=== PATIENT | female | born 1970 | race Caucasian/White ===

== ENCOUNTER 2016-12-25 06:24 | Day surgery (SDC) | payer OTHER ==
[2016-09-24 12:38] VITALS: BMI 32.8
--- NOTE | 2016-12-25 06:17 | HP ---
History & Physical Update - History History: No Change - Physical Physical: No Change - Assessment Assessment: No Change - Plan Plan: No Change
[~2016-12-25 06:24] MED LIST: BUPIVACAINE HCL/PF 0.75% 10 ML VIAL RB ONE; LIDOCAINE HCL/PF 2% SDV 5ML VIAL INF ONE; TETRACAINE 0.5% OPHTH SOLN 2 ML BOTTLE TP ONE; TOBRAMYCIN 0.3% OPHTH OINT 3.5 GM OS ONE
[2016-12-25] MEDS ORDERED: PHENYLEPHRINE 2.5% OPHTH SOLN 15 ML BOTTLE ONE (06:49)
[2016-12-25] MEDS ORDERED: CYCLOPENTOLATE HCL 1% OPHTH SOLN 2 ML BOTTLE ONE (06:49)
[2016-12-25] MEDS ORDERED: MOXIFLOXACIN HCL 0.5% OPHTHALMIC 3 ML BOTTLE ONE (06:49)
[2016-12-25] MEDS ORDERED: TROPICAMIDE 1% OPHTH SOLN 15 ML BOTTLE ONE (06:49)
[2016-12-25 06:56] VITALS: TEMP 98.2
[2016-12-25] MEDS: MOXIFLOXACIN HCL 0.5% OPHTHALMIC 3 ML BOTTLE OP SCH ×2 (07:10→07:15)
[2016-12-25] MEDS: PHENYLEPHRINE 2.5% OPHTH SOLN 15 ML BOTTLE OP SCH ×2 (07:10→07:15)
[2016-12-25] MEDS: TROPICAMIDE 1% OPHTH SOLN 15 ML BOTTLE OP SCH ×2 (07:10→07:15)
[2016-12-25] MEDS: CYCLOPENTOLATE HCL 1% OPHTH SOLN 2 ML BOTTLE OP SCH ×2 (07:10→07:15)
[2016-12-25] MEDS ORDERED: LIDOCAINE HCL/PF 2% SDV 5ML VIAL ONE ×2 (07:20→08:01)
[2016-12-25] MEDS ORDERED: BSS (NA/CA/MG/K) BALANCED SALT SOLUTION OPHTH SOLN 15 ML BOTTLE ONE (07:20)
[2016-12-25] MEDS ORDERED: BUPIVACAINE HCL/PF 0.75% 10 ML VIAL ONE (07:20)
[2016-12-25] MEDS ORDERED: EPINEPHrine/PF 1 MG/1 ML (1:1,000) AMPULE ONE (07:20)
[2016-12-25] MEDS ORDERED: TOBRAMYCIN/DEXAMETHASONE OPHTH. OINTMENT 1 TUBE ONE (07:27)
[2016-12-25] MEDS ORDERED: PROPOFOL 20 ML ONE (07:34)
[2016-12-25] MEDS ORDERED: MIDAZOLAM HCL 2 MG/2 ML SINGLE DOSE VIAL ONE (07:34)
[2016-12-25] MEDS ORDERED: TETRACAINE 0.5% OPHTH SOLN 2 ML BOTTLE TP ONE (07:57)
[2016-12-25] MEDS ORDERED: BUPIVACAINE HCL/PF 0.75% 10 ML VIAL RB ONE (08:03)
[2016-12-25] MEDS ORDERED: LIDOCAINE HCL/PF 2% SDV 5ML VIAL INF ONE (08:03)
[2016-12-25] MEDS ORDERED: CHONDROITIN SU A/HYALUR SOD 1 KIT IO ONE ×2 (08:13→08:28)
[2016-12-25] MEDS ORDERED: EPINEPHrine/PF 1 MG/1 ML (1:1,000) AMPULE SQ ONE (08:14)
[2016-12-25] MEDS ORDERED: LIDOCAINE HCL 1% PRESERVATIVE FREE - 30ML VIAL IO ONE (08:21)
[2016-12-25] MEDS ORDERED: TOBRAMYCIN 0.3% OPHTH OINT 3.5 GM OS ONE (08:34)
[2016-12-25 09:24] VITALS: BP 130/78; PULSE 80
--- NOTE | 2016-12-26 07:00 | OP ---
DATE OF OPERATION: 12/25/2016 SURGEON: Job Griffiths MD PREOPERATIVE DIAGNOSIS: Cataract, left eye. OPERATION: Phacoemulsification and intraocular lens implantation, left eye. POSTOPERATIVE DIAGNOSIS: Cataract, left eye. ANESTHESIA: Local with intravenous sedation. COMPLICATIONS: None. BLOOD LOSS: None. SPECIMEN: None. BRIEF HISTORY: The patient is a 46-year-old woman with a past medical history of diabetes who presented with decreased vision in the left eye down to 20/100 due to a trace nuclear sclerotic lens with diffuse posterior changes and some anterior cortical changes. After the risks, benefits, and alternatives to cataract surgery were discussed with the patient, she consented to surgery for the left eye. DESCRIPTION OF PROCEDURE: The patient was brought to the operating room and administered retrobulbar block after receiving intravenous sedation. She was then prepped and draped in the usual sterile fashion. An eyelid speculum was inserted in the left eye, a paracentesis was made, and the anterior chamber was inflated with nonpreserved lidocaine. This was followed by injection of Viscoat. A groove was made in the superotemporal clear cornea which was tunneled forward with a crescent blade. The anterior chamber was entered with a 2.75 keratome. The cystotome was used to make an incision at the center of the capsule, and a continuous curvilinear capsulorrhexis was created. The lens was hydrodissected until it was found to rotate freely within the capsular bag. Phacoemulsification was then used to remove the lens in its entirety. Irrigation and aspiration were used to remove residual cortical material. The anterior chamber and capsular bag were reinflated with Provisc, and a 21.5 diopter [id number] AcrySof intraocular lens was injected into the capsular bag using the [place] injector. The lens was dialed into place using the [place] hook. Irrigation and aspiration were used to remove residual viscoelastic. The wound was stromally hydrated until it was found to be watertight and the eye was in an appropriate pressure. The eyelid speculum was removed from the eye and TobraDex ointment and a patch and shield were placed over the left eye. The patient was transferred to the recovery room in stable condition and will follow up tomorrow. Margaret [id number] MTDD
== END 2016-12-25 09:57 | disposition home or self-care (01) ==
LOC: JASU-SURG 06:24
PROVIDERS: ATTEND Ophthalmology
PROC: 08RK3JZ Replacement of Left Lens with Synthetic Substitute, Percutaneous Approach (ICD-10-PCS; principal; 2016-12-25 09:00)
DX: H25.12 Age-related nuclear cataract, left eye (principal)

== ENCOUNTER 2018-02-28 14:01 | Emergency (ER) | payer OTHER ==
--- NOTE | 2018-02-28 14:08 | PDOC ---
Rapid Medical Evaluation Chief Complaint: Allergic Reaction Time Seen by Provider: 02/28/18 14:02 Medical Evaluation: Allergies Allergy/AdvReac Type Severity Reaction Status Date / Time aspirin Allergy Verified 02/28/18 14:04 02/28/18 14:06 The patient presents with a chief complaint of: Rash to arms, back and vaginal area. Pt. states that she has the rash for years, but it is worse in the last two weeks. Denies new medications, travel, eating new foods. Being followed by a aerospace technician. admits to itching. denies fevers, n/v/d. I have performed a brief in-person evaluation of this patient; Pertinent physical exam findings: ambulatory, in no respiratory distress. Red papules with excoriation and itching to arms b/l I have ordered the following: Nothing The patient will proceed to the ED for further evaluation. Discharge Disposition - Referrals Referrals: Zuleima Dunne MD [Primary Care Provider] - - Patient Instructions - Post Discharge Activity
[2018-02-28 14:09] VITALS: BP 151/92; PULSE 83; TEMP 98; BMI 33.5
[2018-02-28] MEDS ORDERED: DEXAMETHASONE SOD PHOSPHATE 10 MG/1 ML VIAL IM ONE (15:42)
[2018-02-28] MEDS ORDERED: diphenhydrAMINE HCL 25 MG CAPSULE (FP) PO ONE ×2 (15:43→15:48)
[2018-02-28] MEDS ORDERED: DEXAMETHASONE SOD PHOSPHATE 10 MG/1 ML VIAL ONE (15:48)
--- NOTE | 2018-02-28 15:51 | PDOC ---
History of Present Illness - General Chief Complaint: Allergic Reaction Stated Complaint: ALLERGIC REACTION Time Seen by Provider: 02/28/18 14:02 History Source: Patient Exam Limitations: No Limitations - History of Present Illness Initial Comments: 02/28/18 15:46 Patient came for evaluation of 2 weeks of rash that started on the right arm and is progressively worsened to extend to bilateral arms, back, abdomen and neck. States had onset of this. Itchy rash 2 years ago, was seen at screw [facility] and biopsies done but still has uncertain as to cause or diagnosis. Denies fever, denies any recent exposure or any infectious station at home. Denies any recent drug changes or travel. Denies any recent URI or other illness. Has taken no medication or treatments to help with itching or rashes. No one else at home is affected. 02/28/18 15:51 Timing/Duration: reports: changing over time Severity: reports: mild, moderate Associated Symptoms: reports: denies symptoms. denies: chest pain/soreness, cough, facial pain, fever/chills Past History - Travel Traveled outside of the country in the last 30 days: No Close contact w/someone who was outside of country & ill: No - Past Medical History Allergies/Adverse Reactions: Allergies Allergy/AdvReac Type Severity Reaction Status Date / Time aspirin Allergy Verified 02/28/18 14:09 Home Medications: Ambulatory Orders Insulin Detemir [Levemir Flextouch] 12 unit SQ TID 07/09/16 Sertraline HCl [Zoloft -] 25 mg PO DAILY 02/28/18 Anemia: No Asthma: No Cancer: No Cardiac Disorders: No CVA: No COPD: No CHF: No Dementia: No Diabetes: Yes GI Disorders: No Disorders: No HTN: No Hypercholesterolemia: No Liver Disease: No Psychiatric Problems: Yes (depressions) Seizures: No Thyroid Disease: No - Surgical History Cholecystectomy: Yes - Immunization History Immunization Up to Date: Yes - Suicide/Smoking/Psychosocial Hx Smoking History: Never smoked Have you smoked in the past 12 months: No Information on smoking cessation initiated: No Hx Alcohol Use: No Drug/Substance Use Hx: No Substance Use Type: None Hx Substance Use Treatment: No Review of Systems - Review of Systems Able to Perform ROS?: Yes Is the patient limited Mongolian proficient: Yes Constitutional: Yes: Symptoms Reported, See HPI. No: Fever, Malaise HEENTM: Yes: Symptoms Reported, See HPI. No: Nose Congestion, Mouth Pain, Difficulty Swallowing, Mouth Swelling Respiratory: Yes: See HPI. No: Symptoms reported, Cough, Wheezing Integumentary: Yes: Symptoms Reported, See HPI, Other (discrete pruritic nodular type lesions covering all of arms, back, chest wall up to neck. Nonvesicular, no weeping, no erythema, nontender. No patterns, grouping, or cellulitic appearance.) Neurological: Yes: Symptoms reported, See HPI All Other Systems: Reviewed and Negative *Physical Exam - Vital Signs Last Vital Signs Temp Pulse Resp BP Pulse Ox 98 F 83 16 151/92 100 02/28/18 14:05 02/28/18 14:05 02/28/18 14:05 02/28/18 14:05 02/28/18 14:05 - Physical Exam General Appearance: Yes: Nourished, Appropriately Dressed, Apparent Distress, Mild Distress HEENT: positive: NURY, Normal ENT Inspection, TMs Normal, Pharynx Normal Neck: positive: Supple. negative: Tender, Lymphadenopathy (R), Lymphadenopathy (L) Respiratory/Chest: positive: Lungs Clear Gastrointestinal/Abdominal: positive: Soft. negative: Normal Bowel Sounds Extremity: positive: Normal Capillary Refill, Normal Inspection, Normal Range of Motion Integumentary: positive: Normal Color, Warm, Other (discrete pruritic nodular type lesions covering all of arms, back, chest wall up to neck. Nonvesicular, no weeping, no erythema, nontender. 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 We will provide Decadron for itching and inflammatory purpose and recommend antihistamines. And follow-up with screw driver operator for possible biopsy *DC/Admit/Observation/Transfer Diagnosis at time of Disposition: Dermatitis - Discharge Dispostion Disposition: HOME Condition at time of disposition: Stable Admit: No - Referrals Referrals: Zuleima Dunne MD [Primary Care Provider] - - Patient Instructions Printed Discharge Instructions: DI for Contact Dermatitis Additional Instructions: Rest, keep cool and dry- avoid strenuous activity or hot /humid environments Less hot showers, no abrasive soaps May use heavy creams like Eucerin or Cetaphil to keep skin moist May apply Aveeno, calamine lotion, [id number] hydrocortisone creams as needed for symptoms May use Benadryl at night for antihistamine, Zyrtec/ Su or Claritin for daytime antihistamine use to help with itching May use [id number] hydrocortisone cream on all areas except face Try to identify cause for rash and avoid exposures Followup with PMD in one week if no resolution Make appointment with screw driver operator for evaluation when possible - Post Discharge Activity Forms/Work/School Notes: Back to Work
== END 2018-02-28 16:10 | disposition home or self-care (01) ==
LOC: JERFT 14:01
PROC: 3E0233Z Introduction of Anti-inflammatory into Muscle, Percutaneous Approach (ICD-10-PCS; principal; 2018-02-28)
DX: L30.9 Dermatitis, unspecified (principal); E11.9 Type 2 diabetes mellitus without complications; Z79.4 Long term (current) use of insulin; F32.9 Major depressive disorder, single episode, unspecified
CPT/HCPCS: 96372; 99281-25; J1100

== ENCOUNTER 2019-06-01 10:48 | Emergency (ER) | payer OTHER ==
[2019-06-01 10:58] VITALS: BP 145/86; PULSE 100; TEMP 98.1; BMI 34.0
[2019-06-01] MEDS ORDERED: DIPHTH,PERTUSS(ACELL),TET 0.5 ML DISP.SYRIN IM ONE ×2 (11:12→11:13)
[2019-06-01] MEDS ORDERED: ACETAMINOPHEN 325 MG TABLET (FP) ONE (11:12)
[2019-06-01] MEDS ORDERED: ACETAMINOPHEN 325 MG TABLET (FP) PO ONE (11:12)
--- NOTE | 2019-06-01 11:18 | PDOC ---
History of Present Illness - General Chief Complaint: Abscess Boil Stated Complaint: LOWER BACK PAIN/ FEVER Time Seen by Provider: 06/01/19 11:08 History Source: Patient (back abscess) - History of Present Illness Associated Symptoms: reports: swelling/mass/lumps. denies: fever Past History - Travel Traveled outside of the country in the last 30 days: No - Past Medical History Allergies/Adverse Reactions: Allergies Allergy/AdvReac Type Severity Reaction Status Date / Time aspirin Allergy Intermediate Hives Verified 06/01/19 10:58 baclofen AdvReac Mild dizziness Verified 06/01/19 10:58 duloxetine [From Cymbalta] AdvReac Mild Nausea Verified 06/01/19 10:58 Home Medications: Ambulatory Orders Insulin Sliding Scale [Novolog Vial Sliding Scale -] 0 units SQ BIDAC 08/13/18 Diclofenac Sodium [Voltaren] 2 gm TP TID PRN #3 tube 02/17/19 Ergocalciferol [Vitamin D2] 50,000 unit PO Q7D #4 capsule 02/17/19 Quetiapine Fumarate [Seroquel -] 50 mg PO HS 02/17/19 Sertraline HCl [Zoloft -] 25 mg PO DAILY 02/17/19 Insulin Degludec [Tresiba Flextouch U-100] 75 unit SQ HS 03/19/19 Cephalexin [Keflex] 500 mg PO BID 7 Days #14 capsule 06/01/19 Ibuprofen 600 mg PO ACDIN 7 Days #21 tablet 06/01/19 Anemia: Yes Asthma: No Cancer: No Cardiac Disorders: No 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) COPD: No CHF: No Dementia: No Diabetes: Yes (insulin dependent) GI Disorders: Yes (history pancreatitis 2008) Disorders: No HTN: No Hypercholesterolemia: No Liver Disease: No Psychiatric Problems: Yes (depressions) Seizures: No Thyroid Disease: No - Surgical History Cholecystectomy: Yes (2008) Orthopedic Surgery: Yes (right carpal release 09/2017; left carpal release 2016) - Immunization History Immunization Up to Date: Yes - Suicide/Smoking/Psychosocial Hx Smoking History: Never smoked Have you smoked in the past 12 months: No Hx Alcohol Use: Yes Drug/Substance Use Hx: No Substance Use Type: None Hx Substance Use Treatment: No Review of Systems - Review of Systems Constitutional: No: Chills, Fever Integumentary: Yes: Erythema, Lumps. No: Pruritus *Physical Exam - Vital Signs Last Vital Signs Temp Pulse Resp BP Pulse Ox 98.1 F 100 H 16 145/86 98 06/01/19 10:56 06/01/19 10:56 06/01/19 10:56 06/01/19 10:56 06/01/19 10:56 - Physical Exam General Appearance: Yes: Nourished Respiratory/Chest: positive: Lungs Clear, Normal Breath Sounds Cardiovascular: positive: Regular Rhythm, Regular Rate, S1, S2 Integumentary: positive: Erythema, Rash, Swelling (quarter sized erythematous indurated area with no fluctance noted in mid back). 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 NML intact, Fully Oriented, Alert, Normal Mood/ Affect, Normal Response, Motor Strength 5/5 Medical Decision Making - Medical Decision Making 06/01/19 11:13 mid back abscess X 3 days unsure of last tetanus exam consistent with 2cm indurated area with no fluctance, + erythema warm compresses advised abx 06/01/19 12:28 *DC/Admit/Observation/Transfer Diagnosis at time of Disposition: Abscess, Abscess or cellulitis of back - Discharge Dispostion Disposition: HOME Condition at time of disposition: Stable - Prescriptions Prescriptions: Cephalexin [Keflex] 500 mg PO BID 7 Days #14 capsule Ibuprofen 600 mg PO ACDIN 7 Days #21 tablet - Referrals Referrals: Zuleima Dunne MD [Primary Care Provider] - - Patient Instructions Printed Discharge Instructions: DI for Skin Abscess Additional Instructions: Please apply warm compress to area at least three times a day take antibiotics as prescribed return to the ER if worsening swelling occurs - Post Discharge Activity
== END 2019-06-01 11:20 | disposition home or self-care (01) ==
LOC: JERFT 10:48
PROC: 3E0234Z Introduction of Serum, Toxoid and Vaccine into Muscle, Percutaneous Approach (ICD-10-PCS; principal; 2019-06-01)
DX: L03.312 Cellulitis of back [any part except buttock and flank] (principal); E11.9 Type 2 diabetes mellitus without complications; Z79.4 Long term (current) use of insulin; F32.9 Major depressive disorder, single episode, unspecified; I69.834 Monoplegia of upper limb following other cerebrovascular disease affecting left non-dominant side
CPT/HCPCS: 90471; 90715; 99281-25

== ENCOUNTER 2019-06-02 16:52 | Inpatient (IN) | payer OTHER ==
--- NOTE | 2019-06-02 17:09 | PDOC ---
Rapid Medical Evaluation Medical Evaluation: 06/02/19 16:58 The patient is a 48 y/o F with PMH of HLD, DM, who presents to the ED with chest tightness since this morning. She also reports associated palpitations, fever, L arm pain. The patient states that she was started on an antibiotic yesterday for a cyst on her back. Exam: Temp 100.0F, lungs CTAB, cellulitic area with pustules to the mid back Orders: labs, ekg, cxr, cardiac monitoring Pt to proceed to the ER for further evaluation This is a double chart also has a [id number] Discharge Disposition - Diagnosis Chest pain - Referrals - Patient Instructions - Post Discharge Activity
--- NOTE | 2019-06-02 17:42 | PDOC ---
History of Present Illness <Alanna Ernandez - Last Filed: 06/02/19 20:25> - History of Present Illness Initial Comments: 06/02/19 18:19 48 yo F pmh HLD, IDDM, and previous VTE p/w pain starting in the left arm that radiated to the left chest, pleuritic left chest pain, mid-left abdominal pain, and hematuria/dysuria since this AM. Pt was seen in [facility] ED yesterday (06/01/19) for back abscess, d/c w/ cephalexin. Pt woke up today feeling pain in her left arm that radiated up to left chest and crampy left-mid abdominal pain. Endorses mild SOB, b/l leg swelling, weakness, and chills/diaphoresis. Denies hemoptysis , lightheadedness, N/V/D. Pt flew from [place] on 05/29/19. PMH: HLD, DM, Blood clot ([facility] 2008), pancreatitis ([facility] 2008) Meds: insulin Allergy: duloxetine, aspirin Surg: cholecystectomy SH: denies etoh 06/02/19 18:26 06/02/19 21:00 <Scotty Orlando - Last Filed: 06/03/19 00:24> - General Chief Complaint: Palpitations Stated Complaint: CP/PALPITATIONS/LT.ARM PAIN Time Seen by Provider: 06/02/19 16:58 Past History <Alanna Ernandez - Last Filed: 06/02/19 20:25> - Past Medical History COPD: No - Immunization History Immunization Up to Date: No - Suicide/Smoking/Psychosocial Hx Smoking History: Never smoked Have you smoked in the past 12 months: No Information on smoking cessation initiated: No Hx Alcohol Use: No Drug/Substance Use Hx: No <Scotty Orlando - Last Filed: 06/03/19 00:24> - Past Medical History Allergies/Adverse Reactions: Allergies Allergy/AdvReac Type Severity Reaction Status Date / Time aspirin Allergy Verified 06/02/19 17:09 duloxetine [From Cymbalta] Allergy Verified 06/02/19 17:09 Home Medications: Ambulatory Orders Cephalexin [Keflex] 0 mg PO DAILY 06/02/19 Review of Systems - Review of Systems Constitutional: Yes: Chills, Diaphoresis, Fever, Weakness Respiratory: Yes: Cough (endorses slight cough ), Shortness of Breath. No: Wheezing, Hemoptysis, Other (denies rhinorrhea) Cardiac (ROS): Yes: Chest Pain, Edema (endorses b/l LE edema ). No: Lightheadedness ABD/GI: Yes: Abdominal cramping. No: Diarrhea, Nausea, Vomiting : Yes: Dysuria, Hematuria Musculoskeletal: Yes: Other (+ myalgias) Integumentary: No: Symptoms Reported, See HPI, Bruising, Change in Color, Change in Hair/Nails, Dryness, Erythema, Flushing, Lesions, Lumps, Pallor, Pruritus, Rash, Sweating, Other Neurological: No: Symptoms reported, See HPI, Headache, Numbness, Paresthesia, Pre-Existing Deficit, Seizure, Tingling, Tremors, Weakness, Unsteady Gait, Ataxia, Dizziness, Other Psychiatric: No: Anxiety, Depression, Frequent Crying, Stressors, Sleep Pattern Change, Emotional Problems, Mood Swings, Change in Appetite, Other Endocrine: No: Symptoms Reported, See HPI, Excessive Sweating, Flushing, Intolerance to Cold, Intolerance to Heat, Increased Hunger, Increased Thirst, Increased Urine, Unexplained Weight Gain, Unexplained Weight Loss, Change in Weight, Other Hematologic/Lymphatic: No: Symptoms Reported, See HPI, Anemia, Blood Clots, Easy Bleeding, Easy Bruising, Bleeding Diathesis, Lymph Node Abnormalities, Swollen Glands, Other <Scotty Orlando - Last Filed: 06/03/19 00:24> *Physical Exam - Vital Signs Last Vital Signs Temp Pulse Resp BP Pulse Ox 101.3 F H 101 H 16 157/90 96 06/02/19 17:55 06/02/19 17:55 06/02/19 17:00 06/02/19 17:00 06/02/19 17:00 <Alanna Ernandez - Last Filed: 06/02/19 20:25> - Vital Signs Last Vital Signs Temp Pulse Resp BP Pulse Ox 100.0 F H 113 H 16 157/90 96 06/02/19 17:00 06/02/19 17:00 06/02/19 17:00 06/02/19 17:00 06/02/19 17:00 - Physical Exam Comments: 06/02/19 18:27 VS: tachycardic with temp 100F Gen: NC/AT, mild distress HEENT: Moist mucus membranes CV: tachycardic, no m/r/g Lungs: CTAB, no wheezes, rales, rhonchi Abd: soft with TTP of the mid-left quadrant. + bowel sounds Back: 8 x 6 cm purulent erythematous rash, warm to touch. Extremities: Bilateral TTP of b/l calves. 06/02/19 20:01 <Scotty Orlando - Last Filed: 06/03/19 00:24> ED Treatment Course - LABORATORY CBC & Chemistry Diagram: 06/02/19 18:37 06/02/19 18:37 - ADDITIONAL ORDERS Additional order review: Laboratory Results 06/02/19 06/02/19 06/02/19 18:37 18:37 18:37 PT with INR 12.00 INR 1.02 PTT (Actin FS) 33.8 VBG pH 7.42 H POC VBG pCO2 33.2 L POC VBG pO2 46.8 H VBG HCO3 21.3 L VBG O2 Sat (Manjit) 81.9 H VBG Base Excess -1.9 Sodium 131 L Potassium 4.3 Chloride 97 L Carbon Dioxide 23 Anion Gap 11 BUN 15.3 Creatinine 0.9 Est GFR (CKD-EPI)AfAm 88.25 Est GFR (CKD-EPI)NonAf 76.14 Random Glucose 372 H* Lactic Acid Calcium 9.2 Magnesium 2.1 Total Bilirubin 0.5 AST 15 ALT 26 Alkaline Phosphatase 128 H Creatine Kinase 113 CK-MB (CK-2) 1.0 Troponin I < 0.02 B-Natriuretic Peptide 34.7 Total Protein 7.3 Albumin 3.2 L Lipase 116 Serum , Qual 06/02/19 06/02/19 18:30 18:07 PT with INR INR PTT (Actin FS) VBG pH POC VBG pCO2 POC VBG pO2 VBG HCO3 VBG O2 Sat (Manjit) VBG Base Excess Sodium Potassium Chloride Carbon Dioxide Anion Gap BUN Creatinine Est GFR (CKD-EPI)AfAm Est GFR (CKD-EPI)NonAf Random Glucose Lactic Acid 0.8 Calcium Magnesium Total Bilirubin AST ALT Alkaline Phosphatase Creatine Kinase CK-MB (CK-2) Troponin I B-Natriuretic Peptide Total Protein Albumin Lipase Serum , Qual Negative 06/02/19 18:37 RBC 4.62 MCV 84.1 MCHC 33.3 RDW 13.6 MPV 9.2 Neutrophils % 76.6 Lymphocytes % 11.5 Monocytes % 9.7 Eosinophils % 1.4 Basophils % 0.8 - Medications Given in the ED: ED Medications Discontinued Medications Generic Name Dose Route Start Last Admin Trade Name Norma PRN Reason Stop Dose Admin Sodium Chloride 2,531 mls @ 1,265.5 mls/hr 06/02/19 18:07 06/02/19 18:57 Normal Saline - 30 ml/kg infuse over 2 hr (2531 ml) 06/02/19 20:06 1,265.5 mls/hr IV Administration ONCE ONE <Alanna Ernandez - Last Filed: 06/02/19 20:25> - LABORATORY CBC & Chemistry Diagram: 06/02/19 18:37 06/02/19 18:37 <Scotty Orlando - Last Filed: 06/03/19 00:24> Medical Decision Making - Critical Care Time Total Critical Care Time (minutes): 30 Critical Care Statement: The care of this patient involved high complexity decision making to prevent further life threatening deterioration of the patient 's condition and/or to evaluate & treat vital organ system(s) failure or risk of failure. - Medical Decision Making 06/02/19 18:36 48 yo F presenting with dysuria, hematuria, colicky abdominal pain (left mid- quad), and pleuritic chest pain since this AM. Was seen in [facility] ED for purulent back abscess the previous day (06/01/19). PMH pancreatitis, previous VTE, IDDM, and HLD. Patient meets SIRS criteria for sepsis with source. Possible pancreatitis. Cannot rule out PE. Considering rhabdo. Sepsis - EKG: sinus tach - rectal temperature - sepsis order set - IV, monitor - BCx, UCx - elevated wbc to 12.9 - starting vanc/zosyn Pancreatitis - lipase - consider CT abdomen PE - 2 points on PERC with moderate risk on Wells - CTA Others - B-hcg - serial trops dispo: admit to med/surg <Scotty Orlando - Last Filed: 06/03/19 00:24> *DC/Admit/Observation/Transfer - Discharge Dispostion Decision to Admit order: Yes <Alanna Ernandez - Last Filed: 06/02/19 20:25> - Discharge Dispostion Decision to Admit order: Yes <Scotty Orlando - Last Filed: 06/03/19 00:24> Diagnosis at time of Disposition: Fever Qualifiers: Fever type: unspecified Qualified Code(s): R50.9 - Fever, unspecified Abscess of skin Qualifiers: Site of cutaneous abscess: other site Qualified Code(s): L02.818 - Cutaneous abscess of other sites - Discharge Dispostion Disposition: TRANSFER ACUTE CARE/OTHER HOSP Condition at time of disposition: Fair
[2019-06-02] MEDS ORDERED: SODIUM CHLORIDE IV ONE (18:07)
[2019-06-02 19:00] LABS: BASO % 0.8 % (0-2.0); EOS % 1.4 % (0-4.5); HEMATOCRIT 38.9 % (32.4-45.2); LYMPH % 11.5 % (8-40); MCHC 33.3 g/dl (32.0-36.0); MEAN CELL VOLUME 84.1 fl (80-96); MEAN PLT VOLUME 9.2 fl (7.5-11.1); MONO % 9.7 % (3.8-10.2); NEUT % 76.6 % (42.8-82.8); PLATELET COUNT 240 K/MM3 (134-434); RBC 4.62 M/mm3 (3.60-5.2); RDW 13.6 % (11.6-15.6); WHITE BLOOD COUNT 12.9 K/mm3 (4.0-10.0)
[2019-06-02 19:05] LABS: VENOUS PC02 33.2 mmHg (41-51); VENOUS PH 7.42 (7.31-7.41); VENOUS PO2 46.8 mmHg (30-40)
[2019-06-02 19:12] LABS: INR 1.02 (0.83-1.09)
[2019-06-02 19:15] LABS: ACTIVATED PTT 33.8 SECONDS (25.2-36.5)
[2019-06-02] MEDS ORDERED: VANCOMYCIN 1 GM in D5W (PRE-DOCKED) 1,000 MG/250 ML IVPB ONE (19:41)
[2019-06-02] MEDS ORDERED: PIPERACILLIN/TAZOB 3.375 GM 3.375 GM in DEXTROSE 5%-WATER - 50 ML IVPB ONE (19:41)
[2019-06-02 19:44] LABS: ALBUMIN 3.2 g/dl (3.4-5.0); ALK PHOS 128 U/L (45-117); ANION GAP 11 MMOL/L (8-16); BILIRUBIN,TOTAL 0.5 mg/dL (0.2-1); BLOOD UREA NITROGEN 15.3 mg/dL (7-18); CALCIUM 9.2 mg/dL (8.5-10.1); CHLORIDE 97 mmol/L (98-107); CO2 23 mmol/L (21-32); CREATININE 0.9 mg/dL (0.55-1.3); LIPASE 116 U/L (73-393); MAGNESIUM 2.1 mg/dL (1.8-2.4); N-TERMINAL BNP 34.7 pg/ml (5-125); POTASSIUM 4.3 mmol/L (3.5-5.1); SGOT/AST 15 U/L (15-37); SGPT/ALT 26 U/L (13-61); SODIUM 131 mmol/L (136-145); TOT PROT 7.3 g/dl (6.4-8.2)
[2019-06-02 19:46] LABS: GLUCOSE,RANDOM 372 mg/dL (74-106)
[2019-06-02] MEDS ORDERED: VANCOMYCIN 1 GRAM (PRE-DOCKED) 1,000 MG/250 ML BAG IVPB ONE (20:18)
[2019-06-02] MEDS ORDERED: PIPERACILLIN/TAZOB 3.375 GM 3.375 GM/50 ML BAG IVPB ONE (20:18)
[2019-06-02] MEDS ORDERED: SODIUM CHLORIDE 1,000 ML IV STA (20:47)
--- NOTE | 2019-06-02 21:46 | PN ---
Teaching Attending Note Name of Resident: Deisy Pierre ATTENDING PHYSICIAN STATEMENT I saw and evaluated the patient. I reviewed the resident's note and discussed the case with the resident. I agree with the resident's findings and plan as documented. SUBJECTIVE: Seen and examined; please refer to resident note for further historical information. Briefly, this is a 48 y/o female presenting to the ER with a CC of back pain and chest pain; the pack pain is 2/2 abscess 8c/6c erythematous with minimal drainage. Was seen yday for this and given keflex with no improvement. The CP is dull and atypical and associated with headache; no radiation/diaphoresis/etc. Was seen at [facility] for this 2 months ago and discharged after being seen on tele. No premature CV hx and no prior heart issues but is a largely uncontrolled diabetic (follows with endo). Will admit and place on tele and consult Dr. Pond. 10 sys ROS done and negative aside from HPI PMH, PSH, FH, SH reviewed Home Medications Medication Instructions Recorded Cephalexin [Keflex] 0 mg PO DAILY 06/02/19 She states she also takes insulin; calling pharmacy to confirm dose. OBJECTIVE: VS, labs, imaging reviewed NAD, AAO, resting comfortably in bed NC AT EOMI PERRLA RRR s1/2 no mgr Lungs CTAB, w/ sym exp NT ND +BS 6x8 abscess on the back with minimal surrounding cellulitic changes. EKG reviewed ASSESSMENT AND PLAN: Patient presents with sepsis 2/2 back abscess # sepsis 2/2 cellulitis with abscess # Obesity # Depression Broad spectrum abx, consider ID consult, surgical drainage. Isotonic fluid and followup on floor. Rest of details per resident note.
[2019-06-02 22:06] LABS: EPI CELLS 3.2 /HPF (0-5/HPF); HYALINE CASTS 6 /lpf (0-8); URINE APPEARANCE CLEAR; URINE BACTERIA 119.7 /hpf (NEGATIVE); URINE BILIRUBIN NEGATIVE (NEGATIVE); URINE COLOR YELLOW; URINE GLUCOSE (UA) 3+ (NEGATIVE); URINE KETONE 3+ (NEGATIVE); URINE LEUK ESTERASE 1+ (NEGATIVE); URINE NITRITE NEGATIVE (NEGATIVE); URINE PROTEIN NEGATIVE (NEGATIVE); URINE RBC 1 /hpf (0-4); URINE UROBILINOGEN 0.2 mg/dL (0.2-1.0); URINE WBC 33 /hpf (0-5)
[2019-06-02] MEDS ORDERED: INSULIN REGULAR HUMAN 100 UNITS/ML *VIAL IVPUSH ONE (22:11)
--- NOTE | 2019-06-02 22:30 | HP ---
<Deisy Pierre - Last Filed: 06/03/19 14:24> CHIEF COMPLAINT:Fever, skin abscess, PCP: Dr. Oconnor HISTORY OF PRESENT ILLNESS: Patient is a 48F with PMH significant for insulin dependent diabetes, opiate dependent backpain, who presents with fever, chest pain, and dysuria. Patient felt subjective fever yesterday and presented to the emergency department where she was given a course of cephalexin. Patient took a dose last night and in the AM today but was not feeling well and had new chest pains. Described feelings of a pinching in her chest, and pain radiating into her left arm which was similar to a pain she felt from a blood clot in 2008. Patient did not endorse anything that improved or worsened the pain. Patient describes an abscess on her back for the past 2 weeks, describes it as being very tender. Patient also described dysuria for the previous 1 week, and some hematuria in the AM. Endorses subjective fever, weakness, and some shortness of breath this AM when she was laying down in bed. Patient denies chills or night sweats, light- headedness, or irregular heart beat. In the ER EKG was done which showed sinus tachycardia, and a chest x-ray which did not show cardiopulmonary disease. Vancomycin 1000 mg and zoysn in 3.375 gm were given along with 10 units of insulin. Recent Travel: Traveled back from [place] on 05/29 PAST MEDICAL HISTORY: Insulin dependent diabetes mellitus, opiate dependent back pain, previous abscess, blood clot in arm (2008), pancreatitis, PAST SURGICAL HISTORY: Right and Left Carpal Release in 2016 Cataract surgery in 2016 Tubal Ligation 2009 Cholecystectomy in 2008 Social History: Smoking:Denies Alcohol:Denies Drugs: Denies Family History: Significant for Diabetes and Cardiac issues in grandparents. Mother: Father: Alive in [place]. Allergies aspirin Allergy (Verified 06/02/19 17:09) duloxetine [From Cymbalta] Allergy (Verified 06/02/19 17:09) HOME MEDICATIONS: Home Medications Medication Instructions Recorded Cephalexin [Keflex] 0 mg PO DAILY 06/02/19 REVIEW OF SYSTEMS GASTROINTESTINAL: No abdominal pain, abdominal distension, nausea, vomiting, diarrhea, constipation, melena, hematochezia SKIN: No rash, itching, pallor NEUROLOGIC: headache nightly, no loss of sensation. PHYSICAL EXAMINATION Vital Signs - 24 hr 06/02/19 06/02/19 17:00 17:55 Temperature 100.0 F H 101.3 F H Pulse Rate 113 H 101 H Respiratory 16 Rate Blood Pressure 157/90 O2 Sat by Pulse 96 Oximetry (%) GENERAL: Awake, alert, and fully oriented, and laying in bed in discomfort. HEAD: Normal with no signs of trauma. LUNGS: Breath sounds equal, clear to auscultation bilaterally. No wheezes, and no crackles. No accessory muscle use. HEART: Regular rate and rhythm, normal S1 and S2 without murmur, rub or gallop. ABDOMEN: Soft, nontender, not distended, normoactive bowel sounds, no guarding, no rebound, no masses. No hepatomegaly or splenomegaly. LOWER EXTREMITIES: 2+ pulses, warm, well-perfused. No calf tenderness. No peripheral edema. SKIN: 8x6 abscess midline on the lumbar back. Surrounding area is tender to touch. Laboratory Results - last 24 hr 06/02/19 06/02/19 06/02/19 18:07 18:30 18:37 WBC 12.9 H RBC 4.62 Hgb 13.0 Hct 38.9 MCV 84.1 MCH 28.0 MCHC 33.3 RDW 13.6 Plt Count 240 MPV 9.2 Absolute Neuts (auto) 9.9 H Neutrophils % 76.6 Lymphocytes % 11.5 Monocytes % 9.7 Eosinophils % 1.4 Basophils % 0.8 Nucleated RBC % 0 PT with INR INR PTT (Actin FS) VBG pH POC VBG pCO2 POC VBG pO2 VBG HCO3 VBG O2 Sat (Manjit) VBG Base Excess Sodium Potassium Chloride Carbon Dioxide Anion Gap BUN Creatinine Est GFR (CKD-EPI)AfAm Est GFR (CKD-EPI)NonAf Random Glucose Lactic Acid 0.8 Calcium Magnesium Total Bilirubin AST ALT Alkaline Phosphatase Creatine Kinase CK-MB (CK-2) Troponin I B-Natriuretic Peptide Total Protein Albumin Lipase Serum , Qual Negative Urine Color Urine Appearance Urine pH Ur Specific Notus Urine Protein Urine Glucose (UA) Urine Ketones Urine Blood Urine Nitrite Urine Bilirubin Urine Urobilinogen Ur Leukocyte Esterase Urine WBC (Auto) Urine RBC (Auto) Urine Casts (Auto) U Epithel Cells (Auto) Urine Bacteria (Auto) Blood Type Antibody Screen 07/02/19 07/02/19 07/02/19 18:37 18:37 18:37 WBC RBC Hgb Hct MCV MCH MCHC RDW Plt Count MPV Absolute Neuts (auto) Neutrophils % Lymphocytes % Monocytes % Eosinophils % Basophils % Nucleated RBC % PT with INR 12.00 INR 1.02 PTT (Actin FS) 33.8 VBG pH 7.42 H POC VBG pCO2 33.2 L POC VBG pO2 46.8 H VBG HCO3 21.3 L VBG O2 Sat (Manjit) 81.9 H VBG Base Excess -1.9 Sodium 131 L Potassium 4.3 Chloride 97 L Carbon Dioxide 23 Anion Gap 11 BUN 15.3 Creatinine 0.9 Est GFR (CKD-EPI)AfAm 88.25 Est GFR (CKD-EPI)NonAf 76.14 Random Glucose 372 H* Lactic Acid Calcium 9.2 Magnesium 2.1 Total Bilirubin 0.5 AST 15 ALT 26 Alkaline Phosphatase 128 H Creatine Kinase 113 CK-MB (CK-2) 1.0 Troponin I < 0.02 B-Natriuretic Peptide 34.7 Total Protein 7.3 Albumin 3.2 L Lipase 116 Serum , Qual Urine Color Urine Appearance Urine pH Ur Specific [place]us Urine Protein Urine Glucose (UA) Urine Ketones Urine Blood Urine Nitrite Urine Bilirubin Urine Urobilinogen Ur Leukocyte Esterase Urine WBC (Auto) Urine RBC (Auto) Urine Casts (Auto) U Epithel Cells (Auto) Urine Bacteria (Auto) Blood Type Antibody Screen 06/02/19 06/02/19 06/02/19 18:37 21:00 21:00 WBC RBC Hgb Hct MCV MCH MCHC RDW Plt Count MPV Absolute Neuts (auto) Neutrophils % Lymphocytes % Monocytes % Eosinophils % Basophils % Nucleated RBC % PT with INR INR PTT (Actin FS) VBG pH POC VBG pCO2 POC VBG pO2 VBG HCO3 VBG O2 Sat (Manjit) VBG Base Excess Sodium Potassium Chloride Carbon Dioxide Anion Gap BUN Creatinine Est GFR (CKD-EPI)AfAm Est GFR (CKD-EPI)NonAf Random Glucose Lactic Acid 0.6 Calcium Magnesium Total Bilirubin AST ALT Alkaline Phosphatase Creatine Kinase 101 CK-MB (CK-2) Troponin I B-Natriuretic Peptide Total Protein Albumin Lipase Serum , Qual Urine Color Urine Appearance Urine pH Ur Specific [place]us Urine Protein Urine Glucose (UA) Urine Ketones Urine Blood Urine Nitrite Urine Bilirubin Urine Urobilinogen Ur Leukocyte Esterase Urine WBC (Auto) Urine RBC (Auto) Urine Casts (Auto) U Epithel Cells (Auto) Urine Bacteria (Auto) Blood Type A POSITIVE Antibody Screen Negative 06/02/19 21:50 WBC RBC Hgb Hct MCV MCH MCHC RDW Plt Count MPV Absolute Neuts (auto) Neutrophils % Lymphocytes % Monocytes % Eosinophils % Basophils % Nucleated RBC % PT with INR INR PTT (Actin FS) VBG pH POC VBG pCO2 POC VBG pO2 VBG HCO3 VBG O2 Sat (Manjit) VBG Base Excess Sodium Potassium Chloride Carbon Dioxide Anion Gap BUN Creatinine Est GFR (CKD-EPI)AfAm Est GFR (CKD-EPI)NonAf Random Glucose Lactic Acid Calcium Magnesium Total Bilirubin AST ALT Alkaline Phosphatase Creatine Kinase CK-MB (CK-2) Troponin I B-Natriuretic Peptide Total Protein Albumin Lipase Serum , Qual Urine Color Yellow Urine Appearance Clear Urine pH 5.0 Ur Specific Notus 1.028 Urine Protein Negative Urine Glucose (UA) 3+ H Urine Ketones 3+ H Urine Blood Negative Urine Nitrite Negative Urine Bilirubin Negative Urine Urobilinogen 0.2 Ur Leukocyte Esterase 1+ H Urine WBC (Auto) 33 Urine RBC (Auto) 1 Urine Casts (Auto) 6 U Epithel Cells (Auto) 3.2 Urine Bacteria (Auto) 119.7 Blood Type Antibody Screen ASSESSMENT/PLAN: 48 year old female with PMH of opiate dependent back pain and insulin dependent diabetes who presents today with infection likely secondary to abscess. 1) Abscess Surgery consult for potential I&D- Dr. Pond NPO Clindamycin 600 mg IV Q8H in AM Follow CBC, CMP Blood culture LR @ 75 ml/hr 2) Chest Pain Trend Troponins EKG if chest pain persists 3)Insulin Diabetes Mellitus Sliding Scale Insulin 4) Possible UTI Urine Culture Dispo: Admitted to floors F: LR @75ml/hr E: No electrolyte imbalances to monitor N: NPO Visit type - Emergency Visit Emergency Visit: Yes ED Registration Date: 06/02/19 Care time: The patient presented to the Emergency Department on the above date and was hospitalized for further evaluation of their emergent condition. - New Patient This patient is new to me today: Yes Date on this admission: 06/02/19 - Critical Care Critical Care patient: No <Olaf Rousseau - Last Filed: 07/05/19 21:18> Patient seen and examined; agree with above. Independently verified all vital parts of history and physical and interpreted all labs, etc. Please see my documentation for further discussion. ATTENDING PHYSICIAN STATEMENT I saw and evaluated the patient. I reviewed the resident's note and discussed the case with the resident. I agree with the resident's findings and plan as documented. SUBJECTIVE: OBJECTIVE: ASSESSMENT AND PLAN:
[2019-06-02] MEDS: SODIUM CHLORIDE 1,000 ML IV SCH (22:45)
--- NOTE | 2019-06-02 22:58 | PDOC ---
Documentation entered by Tree Ervin SCRIBE, acting as scribe for Alanna Ernandez MD. Alanna Ernandez MD: This documentation has been prepared by the Arcadio wade Elijah, SCRIBE, under my direction and personally reviewed by me in its entirety. I confirm that the documentation accurately reflects all work, treatment, procedures, and medical decision making performed by me. Attending Attestation - Resident Resident Name: DarionScotty - ED Attending Attestation I have performed the following: I have examined & evaluated the patient, The case was reviewed & discussed with the resident, I agree w/resident's findings & plan - HPI HPI: 06/02/19 19:31 The patient is a 48 deb old female with a significant PMH of HLD, IDDM, and previous VTE who presents to the ED with pain in the left arm that radiates to the left chest, crampy mid-upper abdominal pain, and hematuria/dysuria beginning this morning. The patient also associates SOB, Leg Swelling in both legs, weakness and chill. Denies Nausea, vomiting, diarrhea. Allergies: Aspirin and Duloxetine PCP: Dr. Dunne - Physicial Exam PE: 06/02/19 20:11 GENERAL: Awake, alert, and fully oriented, in no acute distress HEAD: No signs of trauma EYES: PERRLA, EOMI, sclera anicteric, conjunctiva clear ENT: Auricles normal inspection, hearing grossly normal, nares patent, oropharynx clear without exudates. Moist mucosa NECK: Normal ROM, supple, no lymphadenopathy, JVD, or masses LUNGS: Breath sounds equal, clear to auscultation bilaterally. No wheezes, and no crackles HEART: +Tachycardic, normal S1 and S2, no murmurs, rubs or gallops ABDOMEN: +Protuberant but Soft, nontender, normoactive bowel sounds. No guarding, no rebound. No masses BACK: +Mid-Back Abscess area fluctuant erythematous 8x6cm EXTREMITIES: Normal range of motion, no edema. No clubbing or cyanosis. No cords, erythema, or tenderness NEUROLOGICAL: Cranial nerves II through XII grossly intact. Normal speech, normal gait SKIN: Warm, Dry, normal turgor, no rashes or lesions noted. - Medical Decision Making 06/02/19 20:34 71-year-old female was insulin-dependent diabetic presents with fever and skin abscess. She also said she had some atypical chest pain and she had an unremarkable EKG and negative troponin. Patient has received IV vancomycin and Zosyn and is being admitted to [facility]
[2019-06-02] MEDS ORDERED: INSULIN (NOVOLOG) ASPART 100 UNITS/ML 10ML VIAL ONE (23:21)
[2019-06-02] MEDS: INSULIN SLIDING SCALE (NOVOLOG) 1 VIAL SQ SCH (23:25)
[2019-06-02] MEDS ORDERED: HYDROmorphone HCl 2 MG/ML VIAL IVPB ONE (23:48)
[2019-06-03] MEDS ORDERED: HYDROmorphone HCl 2 MG/ML VIAL ONE (00:31)
[2019-06-03 03:09] VITALS: BMI 32.1
[2019-06-03] MEDS: SODIUM CHLORIDE 1,000 ML IV SCH (03:17)
[2019-06-03] MEDS ORDERED: KETOROLAC TROMETHAMINE 15 MG/ML VIAL IM ONE (03:23)
[2019-06-03] MEDS ORDERED: ACETAMINOPHEN 325 MG TABLET (FP) PO PRN (06:06)
[2019-06-03] MEDS ORDERED: LACTATED RINGERS SOLUTION 1,000 ML/1,000 ML INFUS.BAG IV SCH ×2 (06:15→13:06)
[2019-06-03] MEDS ORDERED: INSULIN (NOVOLOG) ASPART 100 UNITS/ML 10ML VIAL ONE ×3 (06:28→21:06)
[2019-06-03] MEDS: CLINDAMYCIN 600MG PREMIX IVPB 600 MG/50 ML BAG IVPB SCH ×3 (06:31→17:55)
[2019-06-03] MEDS: INSULIN SLIDING SCALE (NOVOLOG) 1 VIAL SQ SCH ×4 (06:39→21:08)
[2019-06-03 09:19] LABS: BASO % 0.5 % (0-2.0); HEMATOCRIT 34.2 % (32.4-45.2); HEMOGLOBIN 11.3 GM/dL (10.7-15.3); LYMPH % 14.2 % (8-40); MCH 27.8 pg (25.7-33.7); MCHC 33.1 g/dl (32.0-36.0); MEAN CELL VOLUME 84.1 fl (80-96); MEAN PLT VOLUME 8.7 fl (7.5-11.1); MONO % 9.6 % (3.8-10.2); NEUT % 72.7 % (42.8-82.8); PLATELET COUNT 213 K/MM3 (134-434); RBC 4.07 M/mm3 (3.60-5.2); RDW 13.3 % (11.6-15.6); WHITE BLOOD COUNT 11.2 K/mm3 (4.0-10.0)
--- NOTE | 2019-06-03 09:31 | PN ---
Physical Exam: SUBJECTIVE: Patient seen and examined after I&D in OR. Pt resting comfortably, had lunch. No new pain, no SOB. OBJECTIVE: Vital Signs Period Temp Pulse Resp BP Sys/Perez Pulse Ox Last 24 Hr 99.5 F-101.3 F 99-113 16-18 133-157/76-90 95-96 Vital Signs Temp 98.1 F 06/03/19 14:28 Pulse 87 06/03/19 14:28 Resp 18 06/03/19 14:28 BP 116/62 06/03/19 14:28 Pulse Ox 95 06/03/19 14:28 Intake & Output 06/02/19 06/03/19 06/03/19 23:59 11:59 23:59 Intake Total 0 875 Output Total 5 Balance 0 870 Weight 84.368 kg 79.549 kg Intake: IV 875 Oral 0 Output: Estimated Blood Loss 5 Other: Voiding Method Toilet Height 1.57 m 1.57 m Body Mass Index (BMI) 34.0 32.1 Weight Measurement Method Standing Scale Weight Measurement Method Est/Stated by Patient GENERAL: The patient is awake, alert, and fully oriented, in no acute distress. EYES: PERRL, extraocular movements intact ENT: moist mucous membranes. NECK: supple. LUNGS: Breath sounds equal, clear to auscultation bilaterally, no wheezes, no crackles HEART: Regular rate and rhythm, S1, S2 without murmur ABDOMEN: Soft, nontender, nondistended, normoactive bowel sounds, no guarding, no rebound EXTREMITIES: 2+ pulses, warm, well-perfused, no edema. Mild tenderness over toes (pt reports peripheral neuropathy), no calf tenderness NEUROLOGICAL: Cranial nerves II through XII grossly intact. Normal speech, gait not observed. PSYCH: Normal mood, normal affect. SKIN: Warm, dry, normal turgor, no rashes or lesions noted. Back with midline , midback surgical dressing clean dry, with mild tenderness around, no obvious redness, or swelling. CBC, BMP 06/03/19 08:50 06/03/19 08:50 Laboratory Results - last 24 hr 06/02/19 06/02/19 06/02/19 18:07 18:30 18:37 WBC 12.9 H RBC 4.62 Hgb 13.0 Hct 38.9 MCV 84.1 MCH 28.0 MCHC 33.3 RDW 13.6 Plt Count 240 MPV 9.2 Absolute Neuts (auto) 9.9 H Neutrophils % 76.6 Lymphocytes % 11.5 Monocytes % 9.7 Eosinophils % 1.4 Basophils % 0.8 Nucleated RBC % 0 ESR PT with INR INR PTT (Actin FS) VBG pH POC VBG pCO2 POC VBG pO2 VBG HCO3 VBG O2 Sat (Manjit) VBG Base Excess Sodium Potassium Chloride Carbon Dioxide Anion Gap BUN Creatinine Est GFR (CKD-EPI)AfAm Est GFR (CKD-EPI)NonAf POC Glucometer Random Glucose Lactic Acid 0.8 Calcium Magnesium Total Bilirubin AST ALT Alkaline Phosphatase Creatine Kinase CK-MB (CK-2) Troponin I C-Reactive Protein B-Natriuretic Peptide Total Protein Albumin Lipase Serum , Qual Negative Urine Color Urine Appearance Urine pH Ur Specific [place] Urine Protein Urine Glucose (UA) Urine Ketones Urine Blood Urine Nitrite Urine Bilirubin Urine Urobilinogen Ur Leukocyte Esterase Urine WBC (Auto) Urine RBC (Auto) Urine Casts (Auto) U Epithel Cells (Auto) Urine Bacteria (Auto) Blood Type Antibody Screen 06/02/19 06/02/19 06/02/19 18:37 18:37 18:37 WBC RBC Hgb Hct MCV MCH MCHC RDW Plt Count MPV Absolute Neuts (auto) Neutrophils % Lymphocytes % Monocytes % Eosinophils % Basophils % Nucleated RBC % ESR PT with INR 12.00 INR 1.02 PTT (Actin FS) 33.8 VBG pH 7.42 H POC VBG pCO2 33.2 L POC VBG pO2 46.8 H VBG HCO3 21.3 L VBG O2 Sat (Manjit) 81.9 H VBG Base Excess -1.9 Sodium 131 L Potassium 4.3 Chloride 97 L Carbon Dioxide 23 Anion Gap 11 BUN 15.3 Creatinine 0.9 Est GFR (CKD-EPI)AfAm 88.25 Est GFR (CKD-EPI)NonAf 76.14 POC Glucometer Random Glucose 372 H* Lactic Acid Calcium 9.2 Magnesium 2.1 Total Bilirubin 0.5 AST 15 ALT 26 Alkaline Phosphatase 128 H Creatine Kinase 113 CK-MB (CK-2) 1.0 Troponin I < 0.02 C-Reactive Protein B-Natriuretic Peptide 34.7 Total Protein 7.3 Albumin 3.2 L Lipase 116 Serum , Qual Urine Color Urine Appearance Urine pH Ur Specific [place] Urine Protein Urine Glucose (UA) Urine Ketones Urine Blood Urine Nitrite Urine Bilirubin Urine Urobilinogen Ur Leukocyte Esterase Urine WBC (Auto) Urine RBC (Auto) Urine Casts (Auto) U Epithel Cells (Auto) Urine Bacteria (Auto) Blood Type Antibody Screen 06/02/19 06/02/19 06/02/19 18:37 21:00 21:00 WBC RBC Hgb Hct MCV MCH MCHC RDW Plt Count MPV Absolute Neuts (auto) Neutrophils % Lymphocytes % Monocytes % Eosinophils % Basophils % Nucleated RBC % ESR PT with INR INR PTT (Actin FS) VBG pH POC VBG pCO2 POC VBG pO2 VBG HCO3 VBG O2 Sat (Manjit) VBG Base Excess Sodium Potassium Chloride Carbon Dioxide Anion Gap BUN Creatinine Est GFR (CKD-EPI)AfAm Est GFR (CKD-EPI)NonAf POC Glucometer Random Glucose Lactic Acid 0.6 Calcium Magnesium Total Bilirubin AST ALT Alkaline Phosphatase Creatine Kinase 101 CK-MB (CK-2) Troponin I < 0.02 C-Reactive Protein B-Natriuretic Peptide Total Protein Albumin Lipase Serum , Qual Urine Color Urine Appearance Urine pH Ur Specific [place] Urine Protein Urine Glucose (UA) Urine Ketones Urine Blood Urine Nitrite Urine Bilirubin Urine Urobilinogen Ur Leukocyte Esterase Urine WBC (Auto) Urine RBC (Auto) Urine Casts (Auto) U Epithel Cells (Auto) Urine Bacteria (Auto) Blood Type A POSITIVE Antibody Screen Negative 06/02/19 06/02/19 06/03/19 21:50 22:51 03:18 WBC RBC Hgb Hct MCV MCH MCHC RDW Plt Count MPV Absolute Neuts (auto) Neutrophils % Lymphocytes % Monocytes % Eosinophils % Basophils % Nucleated RBC % ESR PT with INR INR PTT (Actin FS) VBG pH POC VBG pCO2 POC VBG pO2 VBG HCO3 VBG O2 Sat (Manjit) VBG Base Excess Sodium Potassium Chloride Carbon Dioxide Anion Gap BUN Creatinine Est GFR (CKD-EPI)AfAm Est GFR (CKD-EPI)NonAf POC Glucometer 300 Random Glucose Lactic Acid Calcium Magnesium Total Bilirubin AST ALT Alkaline Phosphatase Creatine Kinase CK-MB (CK-2) Troponin I C-Reactive Protein 15.8 H B-Natriuretic Peptide Total Protein Albumin Lipase Serum , Qual Urine Color Yellow Urine Appearance Clear Urine pH 5.0 Ur Specific [place] 1.028 Urine Protein Negative Urine Glucose (UA) 3+ H Urine Ketones 3+ H Urine Blood Negative Urine Nitrite Negative Urine Bilirubin Negative Urine Urobilinogen 0.2 Ur Leukocyte Esterase 1+ H Urine WBC (Auto) 33 Urine RBC (Auto) 1 Urine Casts (Auto) 6 U Epithel Cells (Auto) 3.2 Urine Bacteria (Auto) 119.7 Blood Type Antibody Screen 06/03/19 06/03/19 06/03/19 03:37 03:40 06:38 WBC RBC Hgb Hct MCV MCH MCHC RDW Plt Count MPV Absolute Neuts (auto) Neutrophils % Lymphocytes % Monocytes % Eosinophils % Basophils % Nucleated RBC % ESR 63 H PT with INR INR PTT (Actin FS) VBG pH POC VBG pCO2 POC VBG pO2 VBG HCO3 VBG O2 Sat (Manjit) VBG Base Excess Sodium Potassium Chloride Carbon Dioxide Anion Gap BUN Creatinine Est GFR (CKD-EPI)AfAm Est GFR (CKD-EPI)NonAf POC Glucometer 259 290 Random Glucose Lactic Acid Calcium Magnesium Total Bilirubin AST ALT Alkaline Phosphatase Creatine Kinase CK-MB (CK-2) Troponin I C-Reactive Protein B-Natriuretic Peptide Total Protein Albumin Lipase Serum , Qual Urine Color Urine Appearance Urine pH Ur Specific [place] Urine Protein Urine Glucose (UA) Urine Ketones Urine Blood Urine Nitrite Urine Bilirubin Urine Urobilinogen Ur Leukocyte Esterase Urine WBC (Auto) Urine RBC (Auto) Urine Casts (Auto) U Epithel Cells (Auto) Urine Bacteria (Auto) Blood Type Antibody Screen 06/03/19 08:50 WBC 11.2 H RBC 4.07 Hgb 11.3 Hct 34.2 MCV 84.1 MCH 27.8 MCHC 33.1 RDW 13.3 Plt Count 213 MPV 8.7 Absolute Neuts (auto) 8.2 H Neutrophils % 72.7 Lymphocytes % 14.2 D Monocytes % 9.6 Eosinophils % 3.0 D Basophils % 0.5 Nucleated RBC % 0 ESR PT with INR INR PTT (Actin FS) VBG pH POC VBG pCO2 POC VBG pO2 VBG HCO3 VBG O2 Sat (Manjit) VBG Base Excess Sodium Potassium Chloride Carbon Dioxide Anion Gap BUN Creatinine Est GFR (CKD-EPI)AfAm Est GFR (CKD-EPI)NonAf POC Glucometer Random Glucose Lactic Acid Calcium Magnesium Total Bilirubin AST ALT Alkaline Phosphatase Creatine Kinase CK-MB (CK-2) Troponin I C-Reactive Protein B-Natriuretic Peptide Total Protein Albumin Lipase Serum , Qual Urine Color Urine Appearance Urine pH Ur Specific [place] Urine Protein Urine Glucose (UA) Urine Ketones Urine Blood Urine Nitrite Urine Bilirubin Urine Urobilinogen Ur Leukocyte Esterase Urine WBC (Auto) Urine RBC (Auto) Urine Casts (Auto) U Epithel Cells (Auto) Urine Bacteria (Auto) Blood Type Antibody Screen Active Medications Generic Name Dose Route Start Last Admin Trade Name Freq PRN Reason Stop Dose Admin Acetaminophen 650 mg 06/03/19 06:06 06/03/19 06:31 Tylenol - PO 650 mg Q6H PRN Administration Fever Or Pain Enoxaparin Sodium 40 mg 06/03/19 10:00 Lovenox - SQ DAILY YELENA Clindamycin Phosphate 600 mg in 50 mls @ 100 mls/hr 06/03/19 05:15 06/03/19 06:31 Cleocin 600 Mg Premix Ivpb - IVPB 100 mls/hr Q8H-IV YELENA Administration Protocol Lactated Ringer's 1,000 ml in 1,000 mls @ 75 mls/hr 06/03/19 06:15 06/03/19 06:32 Lactated Ringers Solution IV 75 mls/hr ASDIR YELENA Administration Insulin Aspart 1 vial 06/02/19 22:00 06/03/19 06:39 Novolog Vial Sliding Scale - SQ 6 unit ACHS YELENA Administration Protocol Ambulatory Orders Insulin Sliding Scale [Novolog Vial Sliding Scale -] See Protocol SQ BIDAC 08/13 Ergocalciferol [Vitamin D2] 50,000 unit PO Q7D #4 capsule 02/17/19 Quetiapine Fumarate [Seroquel -] 100 mg PO HS 02/17/19 Sertraline HCl [Zoloft -] 100 mg PO DAILY 02/17/19 Insulin Degludec [Tresiba Flextouch U-100] 75 unit SQ HS 03/19/19 Cephalexin [Keflex] 500 mg PO BID 7 Days #14 capsule 06/01/19 Ibuprofen 600 mg PO ACDIN 7 Days #21 tablet 06/01/19 Buspirone HCl [Buspar -] 10 mg PO BID 06/03/19 Current Medications Acetaminophen (Tylenol -) 650 mg PO Q6H PRN PRN Reason: Fever Or Pain Acetaminophen (Ofirmev Injection -) 1,000 mg IVPB Q6H PRN PRN Reason: PAIN OR FEVER Enoxaparin Sodium (Lovenox -) 40 mg SQ DAILY YELENA Clindamycin Phosphate (Cleocin 600 Mg Premix Ivpb -) 600 mg in 50 mls @ 100 mls /hr IVPB Q8H-IV YELENA; Protocol Lactated Ringer's (Lactated Ringers Solution) 1,000 ml in 1,000 mls @ 75 mls/ hr IV ASDIR YELENA Last Admin: 06/03/19 15:04 Dose: Not Given Lactated Ringer's (Lactated Ringers Solution) 1,000 mls @ 75 mls/hr IV ASDIR YELENA Last Admin: 06/03/19 15:02 Dose: 75 mls/hr Insulin Aspart (Novolog Vial Sliding Scale -) 1 vial SQ ACHS YELENA; Protocol Last Admin: 06/03/19 13:45 Dose: 1 vial Non-Formulary Medication (Diclofenac Sodium [Voltaren]) 2 gm TP TID PRN PRN Reason: PAIN Non-Formulary Medication (Insulin Degludec [Tresiba Flextouch U-100]) 75 unit SQ HS YELENA Ondansetron HCl (Zofran Injection) 4 mg IVPUSH Q6H PRN PRN Reason: NAUSEA AND/OR VOMITING Quetiapine Fumarate (Seroquel -) 50 mg PO HS YELENA Sertraline HCl (Zoloft -) 25 mg PO DAILY YELENA ASSESSMENT/PLAN: Pt is a 48 yo F with PMH of opiate dependent back pain and IIDDM who presenting with back pain with abscess. #Back abscess s/p I&D- Day 0 Surgical site- dressing intact, clean and dry midback Surgery consult - Dr. Pond DM diet Received cephalexin for one day prior Cont Clindamycin 600 mg IV Q8H cont to monitor CBC, CMP Blood culture, wcx, ucx pending LR @ 75 ml/hr #Chest Pain Pt reports left hand pain radiating from to chest Now resolved Troponins negative x2 #Insulin Diabetes Mellitus Sliding Scale Insulin On home triseba #Psych disorder On seroquel, zoloft, buspar #Possible UTI UA with high epithelial cells 298.2, calcium oxalate Pt reports hematuria and dysuria which his resolved since being on AB Urine Culture #FEN LR@75 Monitor lytes, replete as needed NPO Medsurg Visit type - Emergency Visit Emergency Visit: Yes ED Registration Date: 06/02/19 Care time: The patient presented to the Emergency Department on the above date and was hospitalized for further evaluation of their emergent condition. - New Patient This patient is new to me today: Yes Date on this admission: 06/03/19 - Critical Care Critical Care patient: No - Discharge Referral Referred to [facility] Med [facility] No
--- NOTE | 2019-06-03 09:39 | CONSULT ---
- Consultation REQUESTING PROVIDER: Gianni Pond CONSULT REQUEST: We have been asked to surgically evaluate this patient for Back Abscess. PCP: Chris Coyle MD HPI: Called to tonya 48yo female with PMHx as noted below. Presents to [facility] ED w / c/o fever, CP & dysuria which is being medically managed. Patient states she has an abscess on her back for the past two weeks. Denies n/v/c. Recent Travel: Traveled back from [place] on 05/29 PMHx: IDDM, Opiate Dependent 2/2 chronic back pain. Previous back abscess. UE blood clot 2008. Pancreatitis PSHx: Right and Left Carpal Release in 2016 Cataract surgery in 2015 Tubal Ligation 2009 Cholecystectomy in 2008 Home Meds: Keflex Allergies ASA Cymbalta ROS: All systems reviewed and considered negative except for whats contained in HPI. PE: GENERAL: a&o. nad HEAD: nc. at. EYES: PERRL, sclera anicteric, conjunctiva clear. NECK: Normal ROM, supple without lymphadenopathy, JVD, or masses. LUNGS: cta bilat HEART: rrr ABDOMEN: Soft, nt. nd. normoactive bs in all quadrants MUSCULOSKELETAL: neg cvat bilat UE: 2+ pulses, warm, well-perfused. No cyanosis. Cap refill <2 seconds. No peripheral edema. LE: 2+ pulses, warm, well-perfused. No calf tenderness. No peripheral edema. NEUROLOGICAL: Normal speech, gait not observed. PSYCH: Cooperative. Good eye contact. Appropriate mood and affect. SKIN: ~ 8 x 6 cm abscess midline on the thoracolumbar region. TTP. + erythema. Last Vital Signs Temp Pulse Resp BP Pulse Ox 100.4 F H 100 H 18 139/76 96 06/03/19 06:00 06/03/19 06:00 06/03/19 06:00 06/03/19 06:00 06/03/19 02:30 CBC 06/03/19 08:50 INR, PTT INR 1.02 (0.83-1.09) 06/02/19 18:37 Blood Type Blood Type A POSITIVE 06/02/19 18:37 Problem List - Problems (1) Abscess of skin Assessment/Plan: 48 yo female admitted with fever, mild leukocytosis, abscess located in lumbar region. Made NPO Going to OR today for I&D back abscess Medical optimization Code(s): L02.91 - CUTANEOUS ABSCESS, UNSPECIFIED Qualifiers: Site of cutaneous abscess: other site Qualified Code(s): L02.818 - Cutaneous abscess of other sites (2) Fever Code(s): R50.9 - FEVER, UNSPECIFIED Qualifiers: Fever type: unspecified Qualified Code(s): R50.9 - Fever, unspecified Visit type - Case Type Case Type: ED Admission - Emergency Emergency Visit: Yes ED Registration Date: 06/02/19 Care time: The patient presented to the Emergency Department on the above date and was hospitalized for further evaluation of their emergent condition. - New patient This patient is new to me today: Yes Date on this admission: 06/03/19
[2019-06-03 09:52] LABS: ALBUMIN 2.4 g/dl (3.4-5.0); ANION GAP 8 MMOL/L (8-16); BLOOD UREA NITROGEN 8.2 mg/dL (7-18); CHLORIDE 105 mmol/L (98-107); CO2 22 mmol/L (21-32); CREATININE 0.6 mg/dL (0.55-1.3); GLUCOSE,RANDOM 277 mg/dL (74-106); MAGNESIUM 1.8 mg/dL (1.8-2.4); PHOSPHOROUS 3.1 mg/dL (2.5-4.9); POTASSIUM 3.6 mmol/L (3.5-5.1); SGOT/AST 8 U/L (15-37); SGPT/ALT 20 U/L (13-61); SODIUM 135 mmol/L (136-145)
[2019-06-03 09:55] LABS: ALK PHOS 102 U/L (45-117); BILIRUBIN,TOTAL 0.5 mg/dL (0.2-1); TOT PROT 5.6 g/dl (6.4-8.2)
[2019-06-03] MEDS ORDERED: ENOXAPARIN NA (PORCINE) 40 MG/0.4 ML DISP.SYRIN SQ SCH (10:00)
[2019-06-03] MEDS ORDERED: ACETAMINOPHEN 1000 MG/100 ML VIAL (NON FORMULARY) IVPB PRN ×2 (10:09→13:06)
[2019-06-03] MEDS ORDERED: LIDOCAINE HCL 1%, 10 MG/ML (20ML VIAL) ONE (11:04)
[2019-06-03] MEDS ORDERED: PROPOFOL 20 ML ONE (11:26)
[2019-06-03] MEDS ORDERED: MIDAZOLAM HCL 2 MG/2 ML SINGLE DOSE VIAL ONE ×2 (11:26)
[2019-06-03] MEDS ORDERED: ROCURONIUM BROMIDE 50 MG/5 ML VIAL ONE ×2 (11:57)
[2019-06-03] MEDS ORDERED: fentaNYL CITRATE 250 MCG/5 ML VIAL ONE (12:05)
[2019-06-03] MEDS ORDERED: NEOSTIGMINE METHYLSULFATE 0.5 MG/1 ML - 10 ML MDV ONE (12:39)
[2019-06-03] MEDS ORDERED: GLYCOPYRROLATE 0.2 MG/1 ML VIAL ONE (12:40)
--- NOTE | 2019-06-03 12:59 | OP ---
Operative Note - Note: Operative Date: 06/03/19 Pre-Operative Diagnosis: Back abscess Operation: Incision and drainage of back abscess Surgeon: Gianni Pond Electrical Systems Drafter: Giovanny Fox Anesthesiologist/CROOK OPERATOR: Chaz Reaves Anesthesia: General Estimated Blood Loss (mls): 5 Operative Report Dictated: Yes
--- NOTE | 2019-06-03 13:00 | SURG ---
Surgery Mainframe Systems Programmer Note Mainframe Systems Programmer: Giovanny Fox PA-C Date of Service: 06/03/19 Diagnosis: back abscess Procedure: Incision and drainage back abscess I was present for the entirety of the operative procedure. For further detail, please refer to operative report. Visit type - Case Type Case Type: ED Admission - Emergency Emergency Visit: Yes ED Registration Date: 06/02/19 Care time: The patient presented to the Emergency Department on the above date and was hospitalized for further evaluation of their emergent condition. - New patient This patient is new to me today: No - Critical Care Critical Care patient: No
[2019-06-03] MEDS ORDERED: PATIENT'S OWN MEDICATION (NON-FORMULARY) (Diclofenac Sodium [Voltaren] 2 GM) TP PRN (13:06)
[2019-06-03] MEDS ORDERED: ONDANSETRON 4 MG/2 ML VIAL IVPUSH PRN (13:48)
[2019-06-03] MEDS: LACTATED RINGERS SOLUTION 1,000 ML IV SCH (15:02)
[2019-06-03] MEDS: ACETAMINOPHEN 325 MG TABLET (FP) PO PRN (18:28)
--- NOTE | 2019-06-03 18:59 | PN ---
Teaching Attending Note Name of Resident: Monique Welch ATTENDING PHYSICIAN STATEMENT I saw and evaluated the patient. I reviewed the resident's note and discussed the case with the resident. I agree with the resident's findings and plan as documented. SUBJECTIVE: Patient has no complaints. OBJECTIVE: Vital Signs Period Temp Pulse Resp BP Sys/Perez Pulse Ox Last 24 Hr 98.1 F-100.4 F 87-105 16-20 114-160/62-88 95-100 HEART: S1S2, RRR LUNGS: Clear ABDOMEN: Obese, soft, non-tender, non-distended, normal BS EXTREMITIES: No edema Laboratory Results - last 24 hr 06/02/19 06/02/19 06/02/19 08:50 18:07 18:30 WBC RBC Hgb Hct MCV MCH MCHC RDW Plt Count MPV Absolute Neuts (auto) Neutrophils % Lymphocytes % Monocytes % Eosinophils % Basophils % Nucleated RBC % ESR PT with INR INR PTT (Actin FS) VBG pH POC VBG pCO2 POC VBG pO2 VBG HCO3 VBG O2 Sat (Manjit) VBG Base Excess Sodium Potassium Chloride Carbon Dioxide Anion Gap BUN Creatinine Est GFR (CKD-EPI)AfAm Est GFR (CKD-EPI)NonAf POC Glucometer Random Glucose Lactic Acid 0.8 Calcium Phosphorus Magnesium Total Bilirubin AST ALT Alkaline Phosphatase Creatine Kinase CK-MB (CK-2) Troponin I C-Reactive Protein B-Natriuretic Peptide Total Protein Albumin Lipase Serum , Qual Negative Urine Color Urine Appearance Urine pH Ur Specific Valliant Urine Protein Urine Glucose (UA) Urine Ketones Urine Blood Urine Nitrite Urine Bilirubin Urine Urobilinogen Ur Leukocyte Esterase Urine WBC (Auto) Urine RBC (Auto) Urine Casts (Auto) U Epithel Cells (Auto) Urine Bacteria (Auto) Blood Type A POSITIVE Antibody Screen 06/02/19 06/02/19 06/02/19 18:37 18:37 18:37 WBC 12.9 H RBC 4.62 Hgb 13.0 Hct 38.9 MCV 84.1 MCH 28.0 MCHC 33.3 RDW 13.6 Plt Count 240 MPV 9.2 Absolute Neuts (auto) 9.9 H Neutrophils % 76.6 Lymphocytes % 11.5 Monocytes % 9.7 Eosinophils % 1.4 Basophils % 0.8 Nucleated RBC % 0 ESR PT with INR 12.00 INR 1.02 PTT (Actin FS) 33.8 VBG pH 7.42 H POC VBG pCO2 33.2 L POC VBG pO2 46.8 H VBG HCO3 21.3 L VBG O2 Sat (Manjit) 81.9 H VBG Base Excess -1.9 Sodium Potassium Chloride Carbon Dioxide Anion Gap BUN Creatinine Est GFR (CKD-EPI)AfAm Est GFR (CKD-EPI)NonAf POC Glucometer Random Glucose Lactic Acid Calcium Phosphorus Magnesium Total Bilirubin AST ALT Alkaline Phosphatase Creatine Kinase CK-MB (CK-2) Troponin I C-Reactive Protein B-Natriuretic Peptide Total Protein Albumin Lipase Serum , Qual Urine Color Urine Appearance Urine pH Ur Specific Vall[place] Urine Protein Urine Glucose (UA) Urine Ketones Urine Blood Urine Nitrite Urine Bilirubin Urine Urobilinogen Ur Leukocyte Esterase Urine WBC (Auto) Urine RBC (Auto) Urine Casts (Auto) U Epithel Cells (Auto) Urine Bacteria (Auto) Blood Type Antibody Screen 06/02/19 06/02/19 06/02/19 18:37 18:37 21:00 WBC RBC Hgb Hct MCV MCH MCHC RDW Plt Count MPV Absolute Neuts (auto) Neutrophils % Lymphocytes % Monocytes % Eosinophils % Basophils % Nucleated RBC % ESR PT with INR INR PTT (Actin FS) VBG pH POC VBG pCO2 POC VBG pO2 VBG HCO3 VBG O2 Sat (Manjit) VBG Base Excess Sodium 131 L Potassium 4.3 Chloride 97 L Carbon Dioxide 23 Anion Gap 11 BUN 15.3 Creatinine 0.9 Est GFR (CKD-EPI)AfAm 88.25 Est GFR (CKD-EPI)NonAf 76.14 POC Glucometer Random Glucose 372 H* Lactic Acid 0.6 Calcium 9.2 Phosphorus Magnesium 2.1 Total Bilirubin 0.5 AST 15 ALT 26 Alkaline Phosphatase 128 H Creatine Kinase 113 CK-MB (CK-2) 1.0 Troponin I < 0.02 C-Reactive Protein B-Natriuretic Peptide 34.7 Total Protein 7.3 Albumin 3.2 L Lipase 116 Serum , Qual Urine Color Urine Appearance Urine pH Ur Specific Vall[place] Urine Protein Urine Glucose (UA) Urine Ketones Urine Blood Urine Nitrite Urine Bilirubin Urine Urobilinogen Ur Leukocyte Esterase Urine WBC (Auto) Urine RBC (Auto) Urine Casts (Auto) U Epithel Cells (Auto) Urine Bacteria (Auto) Blood Type A POSITIVE Antibody Screen Negative 06/02/19 06/02/19 06/02/19 21:00 21:50 22:51 WBC RBC Hgb Hct MCV MCH MCHC RDW Plt Count MPV Absolute Neuts (auto) Neutrophils % Lymphocytes % Monocytes % Eosinophils % Basophils % Nucleated RBC % ESR PT with INR INR PTT (Actin FS) VBG pH POC VBG pCO2 POC VBG pO2 VBG HCO3 VBG O2 Sat (Manjit) VBG Base Excess Sodium Potassium Chloride Carbon Dioxide Anion Gap BUN Creatinine Est GFR (CKD-EPI)AfAm Est GFR (CKD-EPI)NonAf POC Glucometer 300 Random Glucose Lactic Acid Calcium Phosphorus Magnesium Total Bilirubin AST ALT Alkaline Phosphatase Creatine Kinase 101 CK-MB (CK-2) Troponin I < 0.02 C-Reactive Protein B-Natriuretic Peptide Total Protein Albumin Lipase Serum , Qual Urine Color Yellow Urine Appearance Clear Urine pH 5.0 Ur Specific Valliant 1.028 Urine Protein Negative Urine Glucose (UA) 3+ H Urine Ketones 3+ H Urine Blood Negative Urine Nitrite Negative Urine Bilirubin Negative Urine Urobilinogen 0.2 Ur Leukocyte Esterase 1+ H Urine WBC (Auto) 33 Urine RBC (Auto) 1 Urine Casts (Auto) 6 U Epithel Cells (Auto) 3.2 Urine Bacteria (Auto) 119.7 Blood Type Antibody Screen 06/03/19 06/03/19 06/03/19 03:18 03:37 03:40 WBC RBC Hgb Hct MCV MCH MCHC RDW Plt Count MPV Absolute Neuts (auto) Neutrophils % Lymphocytes % Monocytes % Eosinophils % Basophils % Nucleated RBC % ESR 63 H PT with INR INR PTT (Actin FS) VBG pH POC VBG pCO2 POC VBG pO2 VBG HCO3 VBG O2 Sat (Manjit) VBG Base Excess Sodium Potassium Chloride Carbon Dioxide Anion Gap BUN Creatinine Est GFR (CKD-EPI)AfAm Est GFR (CKD-EPI)NonAf POC Glucometer 259 Random Glucose Lactic Acid Calcium Phosphorus Magnesium Total Bilirubin AST ALT Alkaline Phosphatase Creatine Kinase CK-MB (CK-2) Troponin I C-Reactive Protein 15.8 H B-Natriuretic Peptide Total Protein Albumin Lipase Serum , Qual Urine Color Urine Appearance Urine pH Ur Specific Vall[place] Urine Protein Urine Glucose (UA) Urine Ketones Urine Blood Urine Nitrite Urine Bilirubin Urine Urobilinogen Ur Leukocyte Esterase Urine WBC (Auto) Urine RBC (Auto) Urine Casts (Auto) U Epithel Cells (Auto) Urine Bacteria (Auto) Blood Type Antibody Screen 06/03/19 06/03/19 06/03/19 06:38 08:50 08:50 WBC 11.2 H RBC 4.07 Hgb 11.3 Hct 34.2 MCV 84.1 MCH 27.8 MCHC 33.1 RDW 13.3 Plt Count 213 MPV 8.7 Absolute Neuts (auto) 8.2 H Neutrophils % 72.7 Lymphocytes % 14.2 D Monocytes % 9.6 Eosinophils % 3.0 D Basophils % 0.5 Nucleated RBC % 0 ESR PT with INR INR PTT (Actin FS) VBG pH POC VBG pCO2 POC VBG pO2 VBG HCO3 VBG O2 Sat (Manjit) VBG Base Excess Sodium 135 L Potassium 3.6 Chloride 105 Carbon Dioxide 22 Anion Gap 8 BUN 8.2 Creatinine 0.6 Est GFR (CKD-EPI)AfAm 125.80 Est GFR (CKD-EPI)NonAf 108.54 POC Glucometer 290 Random Glucose 277 H Lactic Acid Calcium 8.0 L Phosphorus 3.1 Magnesium 1.8 Total Bilirubin 0.5 AST 8 L ALT 20 Alkaline Phosphatase 102 Creatine Kinase CK-MB (CK-2) Troponin I < 0.02 C-Reactive Protein B-Natriuretic Peptide Total Protein 5.6 L Albumin 2.4 L Lipase Serum , Qual Urine Color Urine Appearance Urine pH Ur Specific Vall[place] Urine Protein Urine Glucose (UA) Urine Ketones Urine Blood Urine Nitrite Urine Bilirubin Urine Urobilinogen Ur Leukocyte Esterase Urine WBC (Auto) Urine RBC (Auto) Urine Casts (Auto) U Epithel Cells (Auto) Urine Bacteria (Auto) Blood Type Antibody Screen 06/03/19 06/03/19 13:20 16:56 WBC RBC Hgb Hct MCV MCH MCHC RDW Plt Count MPV Absolute Neuts (auto) Neutrophils % Lymphocytes % Monocytes % Eosinophils % Basophils % Nucleated RBC % ESR PT with INR INR PTT (Actin FS) VBG pH POC VBG pCO2 POC VBG pO2 VBG HCO3 VBG O2 Sat (Manjit) VBG Base Excess Sodium Potassium Chloride Carbon Dioxide Anion Gap BUN Creatinine Est GFR (CKD-EPI)AfAm Est GFR (CKD-EPI)NonAf POC Glucometer 279 383 Random Glucose Lactic Acid Calcium Phosphorus Magnesium Total Bilirubin AST ALT Alkaline Phosphatase Creatine Kinase CK-MB (CK-2) Troponin I C-Reactive Protein B-Natriuretic Peptide Total Protein Albumin Lipase Serum , Qual Urine Color Urine Appearance Urine pH Ur Specific Vall[place] Urine Protein Urine Glucose (UA) Urine Ketones Urine Blood Urine Nitrite Urine Bilirubin Urine Urobilinogen Ur Leukocyte Esterase Urine WBC (Auto) Urine RBC (Auto) Urine Casts (Auto) U Epithel Cells (Auto) Urine Bacteria (Auto) Blood Type Antibody Screen Current Medications Generic Name Dose Route Start Last Admin Trade Name Freq PRN Reason Stop Dose Admin Acetaminophen 650 mg 06/03/19 13:06 Tylenol - PO Q6H PRN Fever Or Pain Acetaminophen 1,000 mg 06/03/19 13:06 Ofirmev Injection - IVPB Q6H PRN PAIN OR FEVER Enoxaparin Sodium 40 mg 06/04/19 10:00 Lovenox - SQ DAILY YELENA Clindamycin Phosphate 600 mg in 50 mls @ 100 mls/hr 06/03/19 18:00 06/03/19 17:55 Cleocin 600 Mg Premix Ivpb - IVPB 100 mls/hr Q8H-IV YELENA Administration Protocol Lactated Ringer's 1,000 ml in 1,000 mls @ 75 mls/hr 06/03/19 13:06 06/03/19 15:04 Lactated Ringers Solution IV Not Given ASDIR YELENA Lactated Ringer's 1,000 mls @ 75 mls/hr 06/03/19 14:00 06/03/19 15:02 Lactated Ringers Solution IV 75 mls/hr ASDIR YELENA Administration Insulin Aspart 1 vial 06/03/19 16:30 06/03/19 13:45 Novolog Vial Sliding Scale - SQ 1 vial ACHS YELENA Administration Protocol Non-Formulary Medication 2 gm 06/03/19 13:06 Diclofenac Sodium [Voltaren] TP TID PRN PAIN Non-Formulary Medication 75 unit 06/03/19 22:00 Insulin Degludec [Tresiba Flextouch U-100] SQ HS YELENA Ondansetron HCl 4 mg 06/03/19 13:48 Zofran Injection IVPUSH Q6H PRN NAUSEA AND/OR VOMITING Quetiapine Fumarate 50 mg 06/03/19 22:00 Seroquel - PO HS YELENA Sertraline HCl 25 mg 06/04/19 10:00 Zoloft - PO DAILY YELENA ASSESSMENT AND PLAN: This is a 48 year old woman with a history of type 2 DM, diabetic neuropathy, hyperlipidemia, depression, chronic back pain with lumbar radiculopathy, abscess of lower back who presented to the ED with fever, chest pain, and back pain. 1. Sepsis secondary to back abscess, UTI - Fever, tachycardia, hematuria, dysuria improved; WBC improving - s/p I&D of back abscess 06/03 - Continue clindamycin - Was on Keflex 06/01-06/02 - Follow up blood, urine, wound cultures 2. Chest pain - Resolved - Troponin negative x3 - No definite PE on CTA 3. Type 2 DM with peripheral neuropathy - Continue Tresiba, Novolog sliding scale 4. Depression - Continue Seroquel, Zoloft 5. Hyperlipidemia 6. Chronic back pain with lumbar radiculopathy 7. Obesity with BMI 32.1
[2019-06-03] MEDS ORDERED: QUEtiapine FUMARATE 25 MG TABLET (FP) ONE (21:06)
[2019-06-03] MEDS ORDERED: QUEtiapine FUMARATE 50 MG TABLET PO SCH (22:00)
[2019-06-04] MEDS: CLINDAMYCIN 600MG PREMIX IVPB 600 MG/50 ML BAG IVPB SCH ×3 (01:54→17:33)
[2019-06-04] MEDS: LACTATED RINGERS SOLUTION 1,000 ML IV SCH (01:57)
[2019-06-04] MEDS: INSULIN SLIDING SCALE (NOVOLOG) 1 VIAL SQ SCH ×4 (06:34→21:06)
--- NOTE | 2019-06-04 06:59 | PN ---
Physical Exam: SUBJECTIVE: Patient seen and examined. No fever, no shortness of breath, no chest pain. Had dressing at site changed today. Taking PO. OBJECTIVE: Vital Signs Period Temp Pulse Resp BP Sys/Perez Pulse Ox Last 24 Hr 98.1 F-99.2 F 81-98 16-20 114-160/62-88 95-100 Vital Signs Temp 98.0 F 06/04/19 15:16 Pulse 79 06/04/19 15:16 Resp 18 06/04/19 15:16 BP 132/70 06/04/19 15:16 Pulse Ox 95 06/03/19 21:00 Intake & Output 06/03/19 06/04/19 06/04/19 23:59 11:59 23:59 Intake Total 5 450 700 Output Total 5 Balance 2069 450 700 Intake: IV 1775 450 600 Lactated Ringers Solution 900 450 600 1,000 ml @ 75 mls/hr IV ASDIR YELENA Rx#:[id number] IVPB 100 100 Oral 200 Output: Estimated Blood Loss 5 Other: Voiding Method Toilet Toilet # Unmeasured Voids Void 1 GENERAL: The patient is awake, alert, and fully oriented, in no acute distress. ENT: moist mucous membranes. LUNGS: Breath sounds equal, clear to auscultation bilaterally, no wheezes, no crackles HEART: Regular rate and rhythm, S1, S2 without murmur, rub or gallop. ABDOMEN: Soft, nontender, obese, normoactive bowel sounds, no guarding, EXTREMITIES: 2+ pulses, warm, well-perfused, no edema. NEUROLOGICAL: Cranial nerves II through XII grossly intact. Normal speech, gait not observed. PSYCH: Normal mood, normal affect. SKIN: Back with surgical dressing, clean and dry CBC, BMP 06/04/19 06:25 06/04/19 13:37 Laboratory Results - last 24 hr 06/02/19 06/03/19 06/03/19 08:50 08:50 08:50 WBC 11.2 H RBC 4.07 Hgb 11.3 Hct 34.2 MCV 84.1 MCH 27.8 MCHC 33.1 RDW 13.3 Plt Count 213 MPV 8.7 Absolute Neuts (auto) 8.2 H Neutrophils % 72.7 Lymphocytes % 14.2 D Monocytes % 9.6 Eosinophils % 3.0 D Basophils % 0.5 Nucleated RBC % 0 Sodium 135 L Potassium 3.6 Chloride 105 Carbon Dioxide 22 Anion Gap 8 BUN 8.2 Creatinine 0.6 Est GFR (CKD-EPI)AfAm 125.80 Est GFR (CKD-EPI)NonAf 108.54 POC Glucometer Random Glucose 277 H Calcium 8.0 L Phosphorus 3.1 Magnesium 1.8 Total Bilirubin 0.5 AST 8 L ALT 20 Alkaline Phosphatase 102 Troponin I < 0.02 Total Protein 5.6 L Albumin 2.4 L Blood Type A POSITIVE 06/03/19 06/03/19 06/03/19 13:20 16:56 21:02 WBC RBC Hgb Hct MCV MCH MCHC RDW Plt Count MPV Absolute Neuts (auto) Neutrophils % Lymphocytes % Monocytes % Eosinophils % Basophils % Nucleated RBC % Sodium Potassium Chloride Carbon Dioxide Anion Gap BUN Creatinine Est GFR (CKD-EPI)AfAm Est GFR (CKD-EPI)NonAf POC Glucometer 279 383 473 Random Glucose Calcium Phosphorus Magnesium Total Bilirubin AST ALT Alkaline Phosphatase Troponin I Total Protein Albumin Blood Type 06/04/19 06:14 WBC RBC Hgb Hct MCV MCH MCHC RDW Plt Count MPV Absolute Neuts (auto) Neutrophils % Lymphocytes % Monocytes % Eosinophils % Basophils % Nucleated RBC % Sodium Potassium Chloride Carbon Dioxide Anion Gap BUN Creatinine Est GFR (CKD-EPI)AfAm Est GFR (CKD-EPI)NonAf POC Glucometer 379 Random Glucose Calcium Phosphorus Magnesium Total Bilirubin AST ALT Alkaline Phosphatase Troponin I Total Protein Albumin Blood Type Active Medications Generic Name Dose Route Start Last Admin Trade Name Freq PRN Reason Stop Dose Admin Acetaminophen 650 mg 06/03/19 13:06 06/03/19 18:28 Tylenol - PO 650 mg Q6H PRN Administration Fever Or Pain Acetaminophen 1,000 mg 06/03/19 13:06 06/04/19 06:34 Ofirmev Injection - IVPB 1,000 mg Q6H PRN Administration PAIN OR FEVER Enoxaparin Sodium 40 mg 06/04/19 10:00 Lovenox - SQ DAILY YELENA Clindamycin Phosphate 600 mg in 50 mls @ 100 mls/hr 06/03/19 18:00 06/04/19 01:54 Cleocin 600 Mg Premix Ivpb - IVPB 100 mls/hr Q8H-IV YELENA Administration Protocol Lactated Ringer's 1,000 ml in 1,000 mls @ 75 mls/hr 06/03/19 13:06 06/03/19 15:04 Lactated Ringers Solution IV Not Given ASDIR YELENA Lactated Ringer's 1,000 mls @ 75 mls/hr 06/03/19 14:00 06/04/19 01:57 Lactated Ringers Solution IV 75 mls/hr ASDIR YELENA Administration Insulin Aspart 1 vial 06/03/19 16:30 06/04/19 06:34 Novolog Vial Sliding Scale - SQ 10 units ACHS YELENA Administration Protocol Non-Formulary Medication 2 gm 06/03/19 13:06 Diclofenac Sodium [Voltaren] TP TID PRN PAIN Non-Formulary Medication 75 unit 06/03/19 22:00 Insulin Degludec [Tresiba Flextouch U-100] SQ [facility] Ondansetron HCl 4 mg 06/03/19 13:48 Zofran Injection IVPUSH Q6H PRN NAUSEA AND/OR VOMITING Quetiapine Fumarate 50 mg 06/04/19 22:00 Seroquel - PO [facility] Sertraline HCl 25 mg 06/04/19 10:00 Zoloft - PO DAILY [facility] Ambulatory Orders Insulin Sliding Scale [Novolog Vial Sliding Scale -] See Protocol SQ BIDAC 08/13 Ergocalciferol [Vitamin D2] 50,000 unit PO Q7D #4 capsule 02/17/19 Quetiapine Fumarate [Seroquel -] 100 mg PO HS 02/17/19 Sertraline HCl [Zoloft -] 100 mg PO DAILY 02/17/19 Insulin Degludec [Tresiba Flextouch U-100] 75 unit SQ HS 03/19/19 Cephalexin [Keflex] 500 mg PO BID 7 Days #14 capsule 06/01/19 Ibuprofen 600 mg PO ACDIN 7 Days #21 tablet 06/01/19 Buspirone HCl [Buspar -] 10 mg PO BID 06/03/19 Buspirone HCl [Buspar -] 10 mg PO BID 06/03/19 Current Medications Acetaminophen (Tylenol -) 650 mg PO Q6H PRN PRN Reason: Fever Or Pain Last Admin: 06/04/19 09:47 Dose: 650 mg Acetaminophen (Ofirmev Injection -) 1,000 mg IVPB Q6H PRN PRN Reason: PAIN OR FEVER Last Admin: 06/04/19 06:34 Dose: 1,000 mg Enoxaparin Sodium (Lovenox -) 40 mg SQ DAILY [facility] Last Admin: 06/04/19 09:48 Dose: 40 mg Clindamycin Phosphate (Cleocin 600 Mg Premix Ivpb -) 600 mg in 50 mls @ 100 mls /hr IVPB Q8H-IV YELENA; Protocol Last Admin: 06/04/19 09:47 Dose: 100 mls/hr Insulin Aspart (Novolog Vial Sliding Scale -) 1 vial SQ ACHS [facility]; Protocol Last Admin: 06/04/19 16:24 Dose: 10 units Insulin Detemir (Levemir Vial) 75 units SQ HS [facility] Non-Formulary Medication (Diclofenac Sodium [Voltaren]) 2 gm TP TID PRN PRN Reason: PAIN Ondansetron HCl (Zofran Injection) 4 mg IVPUSH Q6H PRN PRN Reason: NAUSEA AND/OR VOMITING Quetiapine Fumarate (Seroquel -) 50 mg PO HS [facility] Sertraline HCl (Zoloft -) 25 mg PO DAILY [facility] Last Admin: 06/04/19 09:47 Dose: 25 mg Microbiology 06/03/19 13:00 Back Gram Stain - Final 06/03/19 13:00 Back Wound Culture - Preliminary Presumptive Mrsa (Pbp2a Pos) 06/02/19 21:50 Urine - Urine Clean Catch Urine Culture - Preliminary 06/02/19 18:37 Blood - Peripheral Venous Blood Culture - Preliminary NO GROWTH OBTAINED AFTER 24 HOURS, INCUBATION TO CONTINUE FOR 4 DAYS. 06/02/19 18:37 Blood - Peripheral Venous Blood Culture - Preliminary NO GROWTH OBTAINED AFTER 24 HOURS, INCUBATION TO CONTINUE FOR 4 DAYS. ASSESSMENT/PLAN: Pt is a 48 yo F with PMH of opiate dependent back pain and IIDDM who presenting with back pain and abscess. #Back abscess s/p I&D- Day 1 Surgical site- dressing intact, clean and dry midback Surgery following- Dr. Pond DM diet Received cephalexin for one day prior Cont Clindamycin 600 mg IV Q8H cont to monitor CBC, CMP Wcx- Presumptive MRSA Blood culture, wcx, ucx pending Stop LR @ 75 ml/hr #Chest Pain Pt reported left hand pain radiating from to chest Now resolved Troponins negative x2 #Insulin Diabetes Mellitus Now with hyperglycemia Sliding Scale Insulin On home triseba- resume levemir 75U #Psych disorder On seroquel, zoloft, buspar #Possible UTI UA with high epithelial cells 298.2, calcium oxalate Pt reports hematuria and dysuria which his resolved since being on AB Urine Culture pending #FEN No standing fluids Monitor lytes, replete as needed NPO Medsurg Visit type - Emergency Visit Emergency Visit: Yes ED Registration Date: 06/02/19 Care time: The patient presented to the Emergency Department on the above date and was hospitalized for further evaluation of their emergent condition. - New Patient This patient is new to me today: No - Critical Care Critical Care patient: No - Discharge Referral Referred to [facility] No
--- NOTE | 2019-06-04 07:23 | PN ---
Progress Note (short form) - Note Progress Note: Attending Surgeon POD #1 No c/o e/f some pain VSS AF wound-open and w/o drainage; cellulitis is less; o/w unremarkable. IMP: doing well PLAN: Dressing changed; wound care orders placed; continue present tx. Gianni Pond MD FACS
[2019-06-04 07:29] LABS: BASO % 1.1 % (0-2.0); EOS % 1.3 % (0-4.5); HEMOGLOBIN 12.1 GM/dL (10.7-15.3); LYMPH % 11.9 % (8-40); MCH 28.4 pg (25.7-33.7); MCHC 33.6 g/dl (32.0-36.0); MEAN CELL VOLUME 84.5 fl (80-96); MEAN PLT VOLUME 9.1 fl (7.5-11.1); MONO % 7.6 % (3.8-10.2); NEUT % 78.1 % (42.8-82.8); RBC 4.26 M/mm3 (3.60-5.2); RDW 13.5 % (11.6-15.6); WHITE BLOOD COUNT 10.9 K/mm3 (4.0-10.0)
[2019-06-04 07:42] LABS: ALBUMIN 1.8 g/dl (3.4-5.0); BILIRUBIN,TOTAL 0.3 mg/dL (0.2-1); BLOOD UREA NITROGEN 11.7 mg/dL (7-18); CALCIUM 7.6 mg/dL (8.5-10.1); CREATININE 0.7 mg/dL (0.55-1.3); MAGNESIUM 2.1 mg/dL (1.8-2.4); PHOSPHOROUS 3.9 mg/dL (2.5-4.9); POTASSIUM 4.2 mmol/L (3.5-5.1); TOT PROT 6.5 g/dl (6.4-8.2)
[2019-06-04 08:22] LABS: PLATELET COUNT 263 K/MM3 (134-434)
--- NOTE | 2019-06-04 08:53 | PN ---
Teaching Attending Note Name of Resident: Monique Welch ATTENDING PHYSICIAN STATEMENT I saw and evaluated the patient. I reviewed the resident's note and discussed the case with the resident. I agree with the resident's findings and plan as documented. SUBJECTIVE:had subjective fevers last night. stated back is better but still very tender to lay on. denies Cp, SOB, fever, chills, N/V/C/D OBJECTIVE: Last Vital Signs Temp Pulse Resp BP Pulse Ox 98.1 F 81 18 127/84 95 06/04/19 05:48 06/04/19 05:48 06/04/19 05:48 06/04/19 05:48 06/03/19 21:00 General NAD CV S1 S2 RRR no murmur/rub/gallop lungs Lungs CTA B/L no wheezing/rales/rhonchi Abdomen soft NT/ND obese skin back with gauze dressing c/d/i. no surrounding erythema but is very tender ASSESSMENT AND PLAN: 48 year old woman with a history of type 2 DM, diabetic neuropathy, hyperlipidemia, depression, chronic back pain with lumbar radiculopathy, abscess of lower back who presented to the ED with fever, chest pain, and back pain. 1. Sepsis secondary to back abscess, UTI- s/p I&D of back abscess 06/03. leukocytosis trending down. afebrile 24H. awaiting surgeon to take down 1st dressing to visualize. Wcx sent. awaiting on results. on day 2. local wound care per surgery. surgery on board. f/u Wound Cx. BCX NGTD 2. Chest pain- possible due to sepsis with presenting tachycardia. now resolved. CE neg x3. CTA neg for PE 3. Type 2 DM with peripheral neuropathy- Continue Tresiba, Novolog sliding scale 4. Depression- Continue Seroquel, Zoloft 5. Hyperlipidemia 6. Chronic back pain with lumbar radiculopathy 7. Obesity with BMI 32.1 8. DVT ppx- lovenox
[2019-06-04] MEDS: SERTRALINE HCL 25 MG TABLET (FP) PO SCH (09:47)
[2019-06-04] MEDS: ACETAMINOPHEN 325 MG TABLET (FP) PO PRN ×2 (09:47→18:06)
[2019-06-04] MEDS: ENOXAPARIN NA (PORCINE) 40 MG/0.4 ML DISP.SYRIN SQ SCH (09:48)
--- NOTE | 2019-06-04 10:22 | EKG ---
Test Reason : Blood Pressure : / mmHG Vent. Rate : 110 BPM Atrial Rate : 110 BPM P-R Int : 142 ms QRS Dur : 088 ms QT Int : 328 ms P-R-T Axes : 048 042 019 degrees QTc Int : 443 ms SINUS TACHYCARDIA POSSIBLE LEFT ATRIAL ENLARGEMENT NO PREVIOUS ECGS AVAILABLE Confirmed by STAR FRIAS MD ([id number]) on 06/04/2019 10:22:09 AM Referred By: Confirmed By:STAR FRIAS MD
[2019-06-04 14:49] LABS: BLOOD UREA NITROGEN 15.9 mg/dL (7-18); CALCIUM 8.6 mg/dL (8.5-10.1); CREATININE 0.9 mg/dL (0.55-1.3); POTASSIUM 4.2 mmol/L (3.5-5.1)
[2019-06-04] MEDS ORDERED: INSULIN (LEVEMIR) 100 UNITS/ML UNITS SQ SCH (16:30)
[2019-06-04 18:42] LABS: CALCIUM 8.5 mg/dL (8.5-10.1); CREATININE 0.9 mg/dL (0.55-1.3); POTASSIUM 3.6 mmol/L (3.5-5.1)
[2019-06-04] MEDS ORDERED: QUEtiapine FUMARATE 25 MG TABLET (FP) PO SCH (22:00)
[2019-06-05] MEDS: CLINDAMYCIN 600MG PREMIX IVPB 600 MG/50 ML BAG IVPB SCH ×2 (02:55→09:40)
[2019-06-05] MEDS: INSULIN SLIDING SCALE (NOVOLOG) 1 VIAL SQ SCH ×2 (06:05→12:14)
[2019-06-05 07:31] LABS: EOS % 6.9 % (0-4.5); HEMATOCRIT 32.8 % (32.4-45.2); LYMPH % 33.4 % (8-40); MCH 28.1 pg (25.7-33.7); MCHC 33.5 g/dl (32.0-36.0); MEAN CELL VOLUME 84.1 fl (80-96); MEAN PLT VOLUME 8.5 fl (7.5-11.1); NEUT % 50.7 % (42.8-82.8); PLATELET COUNT 275 K/MM3 (134-434); RDW 13.4 % (11.6-15.6); WHITE BLOOD COUNT 8.5 K/mm3 (4.0-10.0)
[2019-06-05 08:02] LABS: POTASSIUM 3.5 mmol/L (3.5-5.1)
[2019-06-05] MEDS: SERTRALINE HCL 25 MG TABLET (FP) PO SCH (09:40)
[2019-06-05] MEDS: ENOXAPARIN NA (PORCINE) 40 MG/0.4 ML DISP.SYRIN SQ SCH (09:40)
[2019-06-05 09:59] LABS: ALBUMIN 2.4 g/dl (3.4-5.0); BILIRUBIN,TOTAL 0.1 mg/dL (0.2-1); BLOOD UREA NITROGEN 9.2 mg/dL (7-18); CALCIUM 8.9 mg/dL (8.5-10.1); CREATININE 0.5 mg/dL (0.55-1.3); MAGNESIUM 1.9 mg/dL (1.8-2.4); PHOSPHOROUS 3.9 mg/dL (2.5-4.9); TOT PROT 5.9 g/dl (6.4-8.2)
[2019-06-05 10:12] VITALS: BP 145/93
[2019-06-05] MEDS ORDERED: SULFAMETHOXAZOLE/TRIMETHOPRIM 800MG/160MG D.S. TABLET PO SCH (11:15)
[2019-06-05] MEDS ORDERED: KETOROLAC TROMETHAMINE 10 MG TABLET PO SCH (12:00)
--- NOTE | 2019-06-05 12:11 | PN ---
Teaching Attending Note Name of Resident: Monique Welch ATTENDING PHYSICIAN STATEMENT I saw and evaluated the patient. I reviewed the resident's note and discussed the case with the resident. I agree with the resident's findings and plan as documented with exceptions below. SUBJECTIVE: Patient seen and examined. Back pain improved, denies urinary symptoms. Reports not taken her insulin for last 2 weeks. Also variable responses when asked about her home insulin dosing. OBJECTIVE: Vital Signs Period Temp Pulse Resp BP Sys/Perez Pulse Ox Last 24 Hr 98 F-98.4 F 57-82 18-20 122-145/70-93 95-98 Intake & Output 06/02/19 06/03/19 06/04/19 06/05/19 23:59 23:59 23:59 23:59 Intake Total 2074 1350 250 Output Total Balance 2069 1350 250 Weight 186 lb 175 lb 6 oz General: sitting in bed in no acute distress Back: wound dressing, surrounding induration, skin discoloration, no angry erythema/purulent foul smelling discharge noted, Chest: CTAB, no rales or wheezing Abdomen:soft, obese, NT, no suprapubic or CVA tenderness Extremities: no edema Home Medications Medication Instructions Recorded Insulin Sliding Scale [Novolog See Protocol SQ BIDAC 08/13/18 Vial Sliding Scale -] Ergocalciferol [Vitamin D2] 50,000 unit PO Q7D #4 capsule 02/17/19 Quetiapine Fumarate [Seroquel -] 100 mg PO HS 02/17/19 Sertraline HCl [Zoloft -] 100 mg PO DAILY 02/17/19 Insulin Degludec [Tresiba 75 unit SQ HS 03/19/19 Flextouch U-100] Cephalexin [Keflex] 500 mg PO BID 7 Days #14 capsule 06/01/19 Ibuprofen 600 mg PO ACDIN 7 Days #21 tablet 06/01/19 Buspirone HCl [Buspar -] 10 mg PO BID 06/03/19 Buspirone HCl [Buspar -] 10 mg PO BID 06/03/19 Active Medications Acetaminophen (Tylenol -) 650 mg PO Q6H PRN PRN Reason: Fever Or Pain Last Admin: 06/04/19 18:06 Dose: 650 mg Acetaminophen (Ofirmev Injection -) 1,000 mg IVPB Q6H PRN PRN Reason: PAIN OR FEVER Last Admin: 06/04/19 06:34 Dose: 1,000 mg Enoxaparin Sodium (Lovenox -) 40 mg SQ DAILY [facility] Last Admin: 06/05/19 09:40 Dose: 40 mg Insulin Aspart (Novolog Vial Sliding Scale -) 1 vial SQ [facility]; Protocol Last Admin: 06/05/19 06:05 Dose: Not Given Insulin Detemir (Levemir Vial) 75 units SQ [facility] Last Admin: 06/04/19 17:33 Dose: 75 units Ketorolac Tromethamine (Toradol) 10 mg PO Q6HPO [facility] Stop: 06/10/19 11:59 Non-Formulary Medication (Diclofenac Sodium [Voltaren]) 2 gm TP TID PRN PRN Reason: PAIN Ondansetron HCl (Zofran Injection) 4 mg IVPUSH Q6H PRN PRN Reason: NAUSEA AND/OR VOMITING Quetiapine Fumarate (Seroquel -) 50 mg PO [facility] Last Admin: 06/04/19 21:06 Dose: 50 mg Sertraline HCl (Zoloft -) 25 mg PO DAILY [facility] Last Admin: 06/05/19 09:40 Dose: 25 mg Trimethoprim/Sulfamethoxazole (Bactrim Ds -) 1 each PO BID [facility] Laboratory Results - last 24 hr 06/04/19 06/04/19 06/04/19 12:16 13:37 15:15 WBC RBC Hgb Hct MCV MCH MCHC RDW Plt Count MPV Absolute Neuts (auto) Neutrophils % Lymphocytes % Monocytes % Eosinophils % Basophils % Nucleated RBC % Sodium 135 L Potassium 4.2 Chloride 102 Carbon Dioxide 26 Anion Gap 8 BUN 15.9 Creatinine 0.9 Est GFR (CKD-EPI)AfAm 88.25 Est GFR (CKD-EPI)NonAf 76.14 POC Glucometer 467 365 Random Glucose 509 H* Calcium 8.6 Phosphorus Magnesium Total Bilirubin AST ALT Alkaline Phosphatase Total Protein Albumin 06/04/19 06/04/19 06/04/19 17:35 19:16 20:39 WBC RBC Hgb Hct MCV MCH MCHC RDW Plt Count MPV Absolute Neuts (auto) Neutrophils % Lymphocytes % Monocytes % Eosinophils % Basophils % Nucleated RBC % Sodium 138 Potassium 3.6 Chloride 103 Carbon Dioxide 26 Anion Gap 9 BUN 15.0 Creatinine 0.9 Est GFR (CKD-EPI)AfAm 88.25 Est GFR (CKD-EPI)NonAf 76.14 POC Glucometer 339 275 Random Glucose 382 H* Calcium 8.5 Phosphorus Magnesium Total Bilirubin AST ALT Alkaline Phosphatase Total Protein Albumin 06/04/19 06/05/19 06/05/19 23:32 06:02 06:29 WBC 8.5 RBC 3.90 Hgb 11.0 Hct 32.8 MCV 84.1 MCH 28.1 MCHC 33.5 RDW 13.4 Plt Count 275 MPV 8.5 Absolute Neuts (auto) 4.3 Neutrophils % 50.7 D Lymphocytes % 33.4 D Monocytes % 8.0 Eosinophils % 6.9 H D Basophils % 1.0 Nucleated RBC % 0 Sodium Potassium Chloride Carbon Dioxide Anion Gap BUN Creatinine Est GFR (CKD-EPI)AfAm Est GFR (CKD-EPI)NonAf POC Glucometer 230 122 Random Glucose Calcium Phosphorus Magnesium Total Bilirubin AST ALT Alkaline Phosphatase Total Protein Albumin 06/05/19 06/05/19 06:29 11:06 WBC RBC Hgb Hct MCV MCH MCHC RDW Plt Count MPV Absolute Neuts (auto) Neutrophils % Lymphocytes % Monocytes % Eosinophils % Basophils % Nucleated RBC % Sodium 145 Potassium 3.5 Chloride 108 H Carbon Dioxide 30 Anion Gap 7 L BUN 9.2 Creatinine 0.5 L Est GFR (CKD-EPI)AfAm 133.58 Est GFR (CKD-EPI)NonAf 115.25 POC Glucometer 272 Random Glucose 113 H Calcium 8.9 Phosphorus 3.9 Magnesium 1.9 Total Bilirubin 0.1 L AST 19 ALT 26 Alkaline Phosphatase 103 Total Protein 5.9 L Albumin 2.4 L Microbiology 06/03/19 13:00 Back Gram Stain - Final 06/03/19 13:00 Back Wound Culture - Final Mr S Aureus 06/03/19 16:00 Nares - Mrsa Screen - Left MRSA Screen - Final Mr S Aureus 06/03/19 16:00 Nares - Mrsa Screen - Right MRSA Screen - Final NO MRSA ISOLATED 06/02/19 18:37 Blood - Peripheral Venous Blood Culture - Preliminary NO GROWTH OBTAINED AFTER 48 HOURS, INCUBATION TO CONTINUE FOR 3 DAYS. 06/02/19 18:37 Blood - Peripheral Venous Blood Culture - Preliminary NO GROWTH OBTAINED AFTER 48 HOURS, INCUBATION TO CONTINUE FOR 3 DAYS. 06/02/19 21:50 Urine - Urine Clean Catch Urine Culture - Preliminary ASSESSMENT AND PLAN: 48 yof with PMHx of IDDM, diabetic neuropathy, hyperlipidemia, depression, chronic back pain with lumbar radiculopathy, abscess of lower back admitted with back abscees and suspected UTI -MRSA back abscess -Suspected UTI -IDDM, poorly controlled, strongly suspect non compoiance -Diabetic neuropathy -HLD -Depression -Chronic back pain with lumbar radiculopathy Plan: Wound cx noted. Discussed with Dr. Pond, remove packing and ok to let soap and water run through and cover with gauze. Afebrile, normal WBC Change to bactrim for 1 week A1c noted. Patient with variable responses in her home insulin regimen, strongly suspect non compliance. Has follow up with Dr. Lawrence. Strict encourage to continue tresiba, novolog sliding scale as directed, home BGM and close follow up with Dr. Lawrence. Pain control with tylenol/motrin prn. Continue seroquel/zoloft Discussed with nursing and social work D/c home with VNS on PO bactrim with outpatient PCP and surgery follow up Plan discussed with patient in detail, all questions answered.
--- NOTE | 2019-06-05 13:46 | DS ---
Physical Exam: SUBJECTIVE: Patient seen and examined. Had high glucose numbers yesterday. Restarted on home long acting insulin. No fevers, no nausea, no chest pain, no SOB. OBJECTIVE: Vital Signs Period Temp Pulse Resp BP Sys/Perez Pulse Ox Last 24 Hr 98 F-98.4 F 57-82 18-20 122-145/70-93 95-98 PHYSICAL EXAM GENERAL: The patient is awake, alert, and fully oriented, in no acute distress. ENT: moist mucous membranes. LUNGS: Breath sounds equal, clear to auscultation bilaterally HEART: Regular rate and rhythm, S1, S2 ABDOMEN: Soft, nontender, nondistended, normoactive bowel sounds EXTREMITIES: 2+ pulses, warm, well-perfused, no edema. NEUROLOGICAL: Cranial nerves II through XII grossly intact. Normal speech, gait not observed. SKIN: Back surgical dressing removed, showing serous non purulent drainage. No erythema, no fluctuance, No active purulent discharge form midline parasspinal posterior surgical incision. Acceptable tenderness around the recent I&D site measuring about 4x4cm, midback of patient. LABS Laboratory Results - last 24 hr 06/04/19 06/04/19 06/04/19 13:37 15:15 17:35 WBC RBC Hgb Hct MCV MCH MCHC RDW Plt Count MPV Absolute Neuts (auto) Neutrophils % Lymphocytes % Monocytes % Eosinophils % Basophils % Nucleated RBC % Sodium 135 L 138 Potassium 4.2 3.6 Chloride 102 103 Carbon Dioxide 26 26 Anion Gap 8 9 BUN 15.9 15.0 Creatinine 0.9 0.9 Est GFR (CKD-EPI)AfAm 88.25 88.25 Est GFR (CKD-EPI)NonAf 76.14 76.14 POC Glucometer 365 Random Glucose 509 H* 382 H* Hemoglobin A1c % Calcium 8.6 8.5 Phosphorus Magnesium Total Bilirubin AST ALT Alkaline Phosphatase Total Protein Albumin 06/04/19 06/04/19 06/04/19 19:16 20:39 23:32 WBC RBC Hgb Hct MCV MCH MCHC RDW Plt Count MPV Absolute Neuts (auto) Neutrophils % Lymphocytes % Monocytes % Eosinophils % Basophils % Nucleated RBC % Sodium Potassium Chloride Carbon Dioxide Anion Gap BUN Creatinine Est GFR (CKD-EPI)AfAm Est GFR (CKD-EPI)NonAf POC Glucometer 339 275 230 Random Glucose Hemoglobin A1c % Calcium Phosphorus Magnesium Total Bilirubin AST ALT Alkaline Phosphatase Total Protein Albumin 07/05/19 07/05/19 07/05/19 06:02 06:29 06:29 WBC 8.5 RBC 3.90 Hgb 11.0 Hct 32.8 MCV 84.1 MCH 28.1 MCHC 33.5 RDW 13.4 Plt Count 275 MPV 8.5 Absolute Neuts (auto) 4.3 Neutrophils % 50.7 D Lymphocytes % 33.4 D Monocytes % 8.0 Eosinophils % 6.9 H D Basophils % 1.0 Nucleated RBC % 0 Sodium 145 Potassium 3.5 Chloride 108 H Carbon Dioxide 30 Anion Gap 7 L BUN 9.2 Creatinine 0.5 L Est GFR (CKD-EPI)AfAm 133.58 Est GFR (CKD-EPI)NonAf 115.25 POC Glucometer 122 Random Glucose 113 H Hemoglobin A1c % Calcium 8.9 Phosphorus 3.9 Magnesium 1.9 Total Bilirubin 0.1 L AST 19 ALT 26 Alkaline Phosphatase 103 Total Protein 5.9 L Albumin 2.4 L 06/05/19 06/05/19 06:29 11:06 WBC RBC Hgb Hct MCV MCH MCHC RDW Plt Count MPV Absolute Neuts (auto) Neutrophils % Lymphocytes % Monocytes % Eosinophils % Basophils % Nucleated RBC % Sodium Potassium Chloride Carbon Dioxide Anion Gap BUN Creatinine Est GFR (CKD-EPI)AfAm Est GFR (CKD-EPI)NonAf POC Glucometer 272 Random Glucose Hemoglobin A1c % 12.4 H Calcium Phosphorus Magnesium Total Bilirubin AST ALT Alkaline Phosphatase Total Protein Albumin Microbiology 06/02/19 18:37 Blood - Peripheral Venous Blood Culture - Preliminary NO GROWTH OBTAINED AFTER 72 HOURS, INCUBATION TO CONTINUE FOR 2 DAYS. 06/02/19 18:37 Blood - Peripheral Venous Blood Culture - Preliminary NO GROWTH OBTAINED AFTER 72 HOURS, INCUBATION TO CONTINUE FOR 2 DAYS. 06/02/19 21:50 Urine - Urine Clean Catch Urine Culture - Final Yeast Like Organism 06/03/19 13:00 Back Gram Stain - Final 06/03/19 13:00 Back Wound Culture - Final S Aureus 06/03/19 16:00 Nares - Mrsa Screen - Left MRSA Screen - Final S Aureus 06/03/19 16:00 Nares - Mrsa Screen - Right MRSA Screen - Final NO MRSA ISOLATED HOSPITAL COURSE: Date of Admission:06/02/19 Date of Discharge: 06/05/19 Pt is a 48 yo F with PMH of opiate dependent back pain and IIDDM who presenting with back pain and abscess. Had I &D on 06/03/19, found to have MRSA in nares and in wound. Treated initially with iv clindamycin but changed to bactrim DS on discharge following sensitivities. Counselled on glucose control . [id number]. Pt was discharged home to follow Dr Pond and her PCP. Minutes to complete discharge: 39 Discharge Summary Reason For Visit: INSULIN DEPEDENT DIABETES MELLITUS Current Active Problems Abscess of skin (Acute) Fever (Acute) Condition: Improved - Instructions Diet, Activity, Other Instructions: You came in with a back abscess and were found to have poorly controlled blood sugars. The abscess was drained Wound care: You may begin showering tomorrow, 06/06. When showering allow soap and water to run over the wound, do not scrub the wound. After showering pat the wound dry well and cover with dry gauze. We are sending you home with a visiting nurse (VNS), they will show you how to take care of the wound at home Medications: We are starting you on bactrim: Take one tablet twice a day for the next seven days You need to stay well hydrated while on bactrim to prevent any damage to your kidneys If you notice any rash or blister while on bactrim, please stop the medication and contact your primary care doctor immediately or come to the ED. Alternate tylenol with motrin every 4 hours for pain. Do not exceed 4Gms of tylenol in 24hrs and do not exceed 2Gms of motrin in 24 hours Make sure you take motrin with food and plenty of water Continue with your other medications as prescribed Glucose control: Check your blood glucose daily and call your bag inspector (diabetes doctor) with a 3 day log of the numbers for adjustment of your insulin dose Referrals: Gianni Pond MD [Staff Physician] - Zuleima Dunne MD [Primary Care Provider] - Singh Lawrence MD [Staff Physician] - Disposition: VNS/HOME HEALTH CARE - Home Medications Comprehensive Discharge Medication List: Ambulatory Orders Insulin Sliding Scale [Novolog Vial Sliding Scale -] See Protocol SQ BIDAC 08/13 Ergocalciferol [Vitamin D2] 50,000 unit PO Q7D #4 capsule 02/17/19 Quetiapine Fumarate [Seroquel -] 100 mg PO HS 02/17/19 Sertraline HCl [Zoloft -] 100 mg PO DAILY 02/17/19 Insulin Degludec [Tresiba Flextouch U-100] 75 unit SQ HS 03/19/19 Buspirone HCl [Buspar -] 10 mg PO BID 06/03/19 Sulfamethoxazole/Trimethoprim [Bactrim DS -] 1 each PO BID #14 tablet 06/05/19 This patient is new to me today: No Emergency Visit: Yes ED Registration Date: 06/02/19 Care time: The patient presented to the Emergency Department on the above date and was hospitalized for further evaluation of their emergent condition. Critical Care patient: No - Discharge Referral Referred to [facility] No
[2019-06-05 15:07] VITALS: PULSE 81; TEMP 98.1
--- NOTE | 2019-06-09 00:44 | OP ---
DATE OF OPERATION: 06/03/2019 PREOPERATIVE DIAGNOSIS: Abscess to the back POSTOPERATIVE DIAGNOSIS: Abscess to the back PROCEDURE: Incision and drainage of abscess to the back. SURGEON: Gianni Pond M.D. HOT [employer] CAR OPERATOR: Sarah Booth ANESTHESIA: General anesthesia OPERATIVE FINDINGS: There was a soft tissue abscess of the mid back with surrounding erythema and induration. The rest of the findings are unremarkable. DESCRIPTION OF PROCEDURE: The patient was placed on the operating room table in the supine position and after induction of general anesthesia, the patient was placed into the right lateral decubitus position. The area of the abscess was prepped with Betadine and draped in sterile fashion, and a timeout was taken, and an incision was made with the scalpel and taken down through skin and subcutaneous tissue until the abscess cavity was entered and drained. Loculations were broken up using blunt dissection, and purulent drainage was sent for culture and sensitivity. Hemostasis was secured with electrocautery, and then the wound irrigated with sterile saline. Hemostasis was again verified, and then the wound was packed with half-inch iodoform gauze followed by dry sterile dressing. The procedure was terminated at this point, and the patient aroused from general anesthesia and transferred to the post anesthesia care unit in stable condition awake and alert. Estimated blood loss 5 mL. Replacements crystalloid. Drains, none. Specimen, culture and sensitivity of drainage to microbiology. I, Gianni Pond, was physically present in the operating room from the time the patient was placed on the operating room table until she was transferred to the postanesthesia care unit in my accompaniment. MD KATIE Rivers/[id number] MTDD
== END 2019-06-05 15:21 | disposition home health service (06) | DRG 720 ==
LOC: JER 16:52 → MERGE 20:41 → JERBED 20:41 → J7W 06-03 02:23
PROVIDERS: ADMIT Internal Medicine; ATTEND Hospitalist
PROC: 0J970ZX Drainage of Back Subcutaneous Tissue and Fascia, Open Approach, Diagnostic (ICD-10-PCS; principal; 2019-06-03 11:30)
DX: A41.9 Sepsis, unspecified organism (principal); E11.42 Type 2 diabetes mellitus with diabetic polyneuropathy; F11.20 Opioid dependence, uncomplicated; L02.212 Cutaneous abscess of back [any part, except buttock and flank]; Z79.4 Long term (current) use of insulin; N39.0 Urinary tract infection, site not specified; F32.9 Major depressive disorder, single episode, unspecified; M54.16 Radiculopathy, lumbar region; E66.9 Obesity, unspecified; Z68.32 Body mass index [BMI] 32.0-32.9, adult; B95.62 Methicillin resistant Staphylococcus aureus infection as the cause of diseases classified elsewhere; E78.5 Hyperlipidemia, unspecified; D72.829 Elevated white blood cell count, unspecified; R00.0 Tachycardia, unspecified; L03.312 Cellulitis of back [any part except buttock and flank]; R31.9 Hematuria, unspecified; E11.65 Type 2 diabetes mellitus with hyperglycemia
CPT/HCPCS: 36415; 71045-TC-FY; 71275-TC; 76604; 80048; 80053; 81003; 82550; 82553; 82803; 82962; 83036; 83605; 83690; 83735; 83880; 84100; 84484; 84703; 85025; 85610; 85651; 85730; 86140; 86850; 86900; 86901; 87040; 87070; 87077; 87081; 87086; 87186; 87205; 90471; 90715; 93005; 93010; 94760; 99281-25; 99284-25; J0131; J7030

== ENCOUNTER 2019-06-17 15:54 | Emergency (ER) | payer OTHER ==
--- NOTE | 2019-06-17 16:22 | PDOC ---
Rapid Medical Evaluation Chief Complaint: Abscess Boil Time Seen by Provider: 06/17/19 16:18 Medical Evaluation: Allergies Allergy/AdvReac Type Severity Reaction Status Date / Time aspirin Allergy Intermediate Hives Verified 06/01/19 10:58 baclofen AdvReac Mild dizziness Verified 06/01/19 10:58 duloxetine [From Cymbalta] AdvReac Mild Nausea Verified 06/01/19 10:58 06/17/19 16:18 I have performed a brief in-person evaluation of this patient. The patient presents with a chief complaint of: recurrance of wound/ to abscess - was I and D here 2 weeks ago and feels is not healing. No fevers , RBS Pertinent physical exam findings: Mild tender with drainage to site/ I have ordered the following: nothing The patient will proceed to the ED for further evaluation. 06/17/19 16:21 Discharge Disposition - Diagnosis Abscess of skin - Referrals - Patient Instructions - Post Discharge Activity
[2019-06-17 16:24] VITALS: BP 138/98; PULSE 106; TEMP 98.2; BMI 37.8
[2019-06-17] MEDS ORDERED: KETOROLAC TROMETHAMINE 60 MG/2 ML VIAL IM ONE (17:17)
--- NOTE | 2019-06-17 17:29 | PDOC ---
History of Present Illness - General Chief Complaint: Revisit,Wound Recheck Stated Complaint: WOUND CARE Time Seen by Provider: 06/17/19 16:18 History Source: Patient Exam Limitations: Clinical Condition - History of Present Illness Initial Comments: 06/17/19 17:30 Patient with history of insulin-dependent diabetes status post I&D of back abscess over week ago and finish 7 days course of Bactrim antibiotics present with complaint of wound to lower back still draining pus or pain with pain. Denies fever, chills or weakness. Patient reported area of dark skin around wound area. Denies any other symptoms. Patient reported going to wound care clinic after procedure for follow-up was told did not accept her insurance. Timing/Duration: 1 week Past History - Past Medical History Allergies/Adverse Reactions: Allergies Allergy/AdvReac Type Severity Reaction Status Date / Time aspirin Allergy Intermediate Hives Verified 06/01/19 10:58 baclofen AdvReac Mild dizziness Verified 06/01/19 10:58 duloxetine [From Cymbalta] AdvReac Mild Nausea Verified 06/01/19 10:58 Home Medications: Ambulatory Orders Insulin Sliding Scale [Novolog Vial Sliding Scale -] See Protocol SQ BIDAC 08/13 Ergocalciferol [Vitamin D2] 50,000 unit PO Q7D #4 capsule 02/17/19 Quetiapine Fumarate [Seroquel -] 100 mg PO HS 02/17/19 Sertraline HCl [Zoloft -] 100 mg PO DAILY 02/17/19 Insulin Degludec [Tresiba Flextouch U-100] 75 unit SQ HS 03/19/19 Buspirone HCl [Buspar -] 10 mg PO BID 06/03/19 Sulfamethoxazole/Trimethoprim [Bactrim DS -] 1 each PO BID #14 tablet 06/05/19 Clindamycin [Cleocin -] 300 mg PO TID #21 capsule 06/17/19 Oxycodone HCl/Acetaminophen [Percocet 5-325 mg Tablet] 1 tab PO Q4H PRN #12 tablet MDD 3 06/17/19 Anemia: Yes Asthma: No Cancer: No Cardiac Disorders: No 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) COPD: No CHF: No Dementia: No Diabetes: Yes GI Disorders: Yes (history pancreatitis 2008) Disorders: No HTN: No Hypercholesterolemia: Yes Liver Disease: No Psychiatric Problems: Yes (depressions) Seizures: No Thyroid Disease: No - Surgical History Cholecystectomy: Yes Orthopedic Surgery: Yes (right carpal release 09/2017; left carpal release 2016) - Immunization History Immunization Up to Date: No - Suicide/Smoking/Psychosocial Hx Smoking History: Unknown if ever smoked Have you smoked in the past 12 months: No Information on smoking cessation initiated: No Hx Alcohol Use: No Drug/Substance Use Hx: No Substance Use Type: None Hx Substance Use Treatment: No Review of Systems - Review of Systems Able to Perform ROS?: Yes Is the patient limited Surinamese proficient: No Constitutional: No: Chills, Fever, Malaise HEENTM: No: Symptoms Reported Respiratory: No: Symptoms reported Cardiac (ROS): No: Symptoms Reported Musculoskeletal: Yes: Symptoms Reported, See HPI, Muscle Pain ( mid-back laceration) Integumentary: Yes: Symptoms Reported, See HPI, Other (wound of mid-back from abscess drainage). No: Erythema Neurological: No: Numbness, Paresthesia, Tingling, Weakness All Other Systems: Reviewed and Negative *Physical Exam - Vital Signs Last Vital Signs Temp Pulse Resp BP Pulse Ox 98.2 F 106 H 16 138/98 97 06/17/19 16:20 06/17/19 16:20 06/17/19 16:20 06/17/19 16:20 06/17/19 16:20 - Physical Exam General Appearance: Yes: Nourished, Appropriately Dressed, Mild Distress HEENT: positive: Normal ENT Inspection Respiratory/Chest: negative: Respiratory Distress, Accessory Muscle Use Cardiovascular: positive: Regular Rhythm, Regular Rate Musculoskeletal: positive: Other (moderate TTP over incision of right paravertebral muscle of mid-back with yellow purulent drainage from wound). negative: CVA Tenderness Extremity: positive: Normal Inspection Integumentary: positive: Normal Color, Other (5cm linear x2cm deep surgical incision to right paravertebral muscle of midback with purulent drainage from wound and small area of wound opening with eschar) Neurologic: positive: slurry mixer II-XII NML intact, Fully Oriented, Alert, Normal Mood/ Affect, Normal Response Medical Decision Making - Medical Decision Making 06/17/19 17:34 Patient with history of insulin-dependent diabetes status post I&D of back abscess over week ago and finish 7 days course of Bactrim antibiotics present with complaint of wound to lower back still draining pus or pain with pain. Denies fever, chills or weakness. Patient reported area of dark skin around wound area. Denies any other symptoms. Patient reported going to wound care clinic after procedure for follow-up was told did not accept her insurance. Wound culture showed MRSA. Exam significant for 5 cm linear laceration and 2 cm deep to right paracervical muscle of L2-L4 with yellow purulent discharge from wound and wound open. No skin erythema. Wound irrigated with normal saline. Gauze infused with petroleum jelly applied to wound and wound covered with Tegaderm. Patient be discharged home on clindamycin antibiotics given persistent with infection and Percocet when necessary for pain with advised to follow-up back with surgeon. *DC/Admit/Observation/Transfer Diagnosis at time of Disposition: Abscess or cellulitis of back Open wound of back Qualifiers: Encounter type: initial encounter Laterality: left Qualified Code(s): S21.202A - Unspecified open wound of left back wall of thorax without penetration into thoracic cavity, initial encounter - Discharge Dispostion Disposition: HOME Condition at time of disposition: Stable Decision to Admit order: No - Prescriptions Prescriptions: Clindamycin [Cleocin -] 300 mg PO TID #21 capsule Oxycodone HCl/Acetaminophen [Percocet 5-325 mg Tablet] 1 tab PO Q4H PRN #12 tablet MDD 3 PRN Reason: severe back pain - Referrals Referrals: Gianni Pond MD [Staff Physician] - - Patient Instructions Printed Discharge Instructions: How to Care for a Surgical Wound, DI for Wound Infection Additional Instructions: Continue with wound dressing twice a day. Take prescribed medication as prescribed. Follow-up referred surgeon as discussed for follow-up care. Call tomorrow to make follow-up appointment. - Post Discharge Activity
[2019-06-17] MEDS ORDERED: KETOROLAC TROMETHAMINE 60 MG/2 ML VIAL ONE (17:39)
== END 2019-06-17 17:59 | disposition home or self-care (01) ==
LOC: JERFT 15:54
PROC: 3E0233Z Introduction of Anti-inflammatory into Muscle, Percutaneous Approach (ICD-10-PCS; principal; 2019-06-17)
DX: S21.202A Unspecified open wound of left back wall of thorax without penetration into thoracic cavity, initial encounter (principal); L02.212 Cutaneous abscess of back [any part, except buttock and flank]; F32.9 Major depressive disorder, single episode, unspecified; Z86.73 Personal history of transient ischemic attack (TIA), and cerebral infarction without residual deficits; E11.9 Type 2 diabetes mellitus without complications; E78.00 Pure hypercholesterolemia, unspecified
CPT/HCPCS: 96372; 99281-25

== ENCOUNTER 2020-10-22 01:14 | Emergency (ER) | payer OTHER ==
[2020-10-22 01:30] VITALS: BP 123/80; PULSE 109; TEMP 98; BMI 26.6
[2020-10-22] MEDS ORDERED: AZITHROMYCIN 250 MG TABLET PO ONE (02:08)
[2020-10-22] MEDS ORDERED: AZITHROMYCIN 250 MG TABLET ONE (02:11)
[2020-10-22] MEDS ORDERED: DEXAMETHASONE SOD PHOSPHATE 10 MG/1 ML VIAL ONE (02:11)
[2020-10-22] MEDS ORDERED: DEXAMETHASONE 4 MG TABLET (FP) PO ONE (02:15)
== END 2020-10-22 03:47 | disposition home or self-care (01) ==
LOC: JER 01:14
DX: U07.1 COVID-19 (principal)
CPT/HCPCS: 93005; 93010; 99285-25

== ENCOUNTER 2020-10-25 20:58 | Emergency (ER) | payer OTHER ==
[2020-10-25 21:07] VITALS: BMI 26.4
[2020-10-25] MEDS ORDERED: ACETAMINOPHEN 1000 MG/100 ML VIAL (NON FORMULARY) IVPB ONE (21:56)
[2020-10-25] MEDS ORDERED: SODIUM CHLORIDE 1,000 ML IV STA (21:56)
[2020-10-25] MEDS ORDERED: ACETAMINOPHEN INJECTION 100 ML IVPB ONE (22:04)
[2020-10-25 23:00] LABS: BASO % 1.4 % (0-2.0); EOS % 4.9 % (0-4.5); HEMATOCRIT 35.5 % (32.4-45.2); HEMOGLOBIN 11.9 GM/dL (10.7-15.3); MCH 29.2 pg (25.7-33.7); MCHC 33.6 g/dl (32.0-36.0); MEAN CELL VOLUME 87.1 fl (80-96); MEAN PLT VOLUME 8.2 fl (7.5-11.1); MONO % 7.9 % (3.8-10.2); NEUT % 46.8 % (42.8-82.8); PLATELET COUNT 237 K/MM3 (134-434); RBC 4.07 M/mm3 (3.60-5.2); RDW 13.9 % (11.6-15.6); WHITE BLOOD COUNT 7.5 K/mm3 (4.0-10.0)
[2020-10-26 00:05] LABS: POTASSIUM 4.3 mmol/L (3.5-5.1)
[2020-10-26 00:07] LABS: BLOOD UREA NITROGEN 19.9 mg/dL (7-18); CALCIUM 8.9 mg/dL (8.5-10.1)
[2020-10-26 00:10] LABS: CREATININE 0.7 mg/dL (0.55-1.3)
[2020-10-26 00:12] LABS: BILIRUBIN,TOTAL 0.2 mg/dL (0.2-1); TOT PROT 6.8 g/dl (6.4-8.2)
[2020-10-26] MEDS ORDERED: KETOROLAC TROMETHAMINE 30 MG/1 ML VIAL IVPUSH ONE (02:18)
[2020-10-26] MEDS ORDERED: diazePAM 5 MG TABLET PO ONE (02:24)
[2020-10-26] MEDS ORDERED: KETOROLAC TROMETHAMINE 30 MG/1 ML VIAL ONE (02:29)
[2020-10-26] MEDS ORDERED: diazePAM 5 MG TABLET ONE (02:29)
[2020-10-26 02:52] VITALS: BP 157/91; PULSE 84
[2020-10-26 03:37] VITALS: TEMP 97.1
[2020-10-26 05:29] LABS: PH,URINE 5.5 (5.0-8.0); URINE APPEARANCE CLEAR; URINE BILIRUBIN NEGATIVE (NEGATIVE); URINE COLOR YELLOW; URINE GLUCOSE (UA) NEGATIVE (NEGATIVE); URINE KETONE NEGATIVE (NEGATIVE); URINE LEUK ESTERASE NEGATIVE (NEGATIVE); URINE NITRITE NEGATIVE (NEGATIVE); URINE PROTEIN NEGATIVE (NEGATIVE); URINE UROBILINOGEN 0.2 mg/dL (0.2-1.0)
[2020-10-26 05:30] LABS: EPI CELLS 27 /uL (0-25.1); HYALINE CASTS 1 /uL (0-3.1); URINE BACTERIA 1117 /uL (0-1359); URINE RBC 1 /uL (0-23.9); URINE WBC 51 /uL (0-25.8)
== END 2020-10-26 03:38 | disposition home or self-care (01) ==
LOC: JER 20:58
PROC: 3E0333Z Introduction of Anti-inflammatory into Peripheral Vein, Percutaneous Approach (ICD-10-PCS; principal; 2020-10-25)
PROC: 3E0333Z Introduction of Anti-inflammatory into Peripheral Vein, Percutaneous Approach (ICD-10-PCS; 2020-10-25)
PROC: 3E0337Z Introduction of Electrolytic and Water Balance Substance into Peripheral Vein, Percutaneous Approach (ICD-10-PCS; 2020-10-25)
DX: M79.604 Pain in right leg (principal); R10.31 Right lower quadrant pain
CPT/HCPCS: 36415; 74177-TC; 80053; 81003; 83690; 84703; 85025; 93005; 93010; 93971-TC; 99285-25; J0131; Q9967

== ENCOUNTER 2021-03-01 08:40 | Emergency (ER) | payer OTHER ==
[2021-03-01 09:03] VITALS: BP 155/94; PULSE 106; TEMP 98.1; BMI 29.2
[2021-03-01] MEDS ORDERED: ACETAMINOPHEN 1000 MG/100 ML VIAL (NON FORMULARY) IVPB ONE (09:36)
[2021-03-01] MEDS ORDERED: SODIUM CHLORIDE 1,000 ML IV STA ×2 (09:36→11:19)
[2021-03-01] MEDS ORDERED: ONDANSETRON 4 MG/2 ML VIAL IVPUSH ONE (09:36)
[2021-03-01 09:50] LABS: BASO % 0.8 % (0-2.0); EOS % 2.3 % (0-4.5); HEMATOCRIT 40.1 % (32.4-45.2); HEMOGLOBIN 13.6 GM/dL (10.7-15.3); MCH 28.7 pg (25.7-33.7); MEAN CELL VOLUME 84.6 fl (80-96); MEAN PLT VOLUME 9.3 fl (7.5-11.1); MONO % 6.7 % (3.8-10.2); NEUT % 69.2 % (42.8-82.8); PLATELET COUNT 216 K/MM3 (134-434); RBC 4.74 M/mm3 (3.60-5.2); RDW 12.8 % (11.6-15.6); WHITE BLOOD COUNT 6.6 K/mm3 (4.0-10.0)
[2021-03-01 09:59] LABS: INR 0.87 (0.83-1.09); PROTHROMBIN TIME (PATIENT) 10.7 SEC (9.7-13.0)
[2021-03-01 10:03] LABS: URINE APPEARANCE CLEAR; URINE BILIRUBIN NEGATIVE (NEGATIVE); URINE COLOR YELLOW; URINE GLUCOSE (UA) 3+ (NEGATIVE); URINE KETONE TRACE (NEGATIVE); URINE LEUK ESTERASE NEGATIVE (NEGATIVE); URINE NITRITE NEGATIVE (NEGATIVE); URINE PROTEIN NEGATIVE (NEGATIVE); URINE UROBILINOGEN 0.2 mg/dL (0.2-1.0)
[2021-03-01 10:05] LABS: HCG,QUALITATIVE URINE Negative
[2021-03-01 10:08] LABS: CHLORIDE 100 mmol/L (98-107); POTASSIUM 4.3 mmol/L (3.5-5.1); SODIUM 133 mmol/L (136-145)
[2021-03-01 10:10] LABS: CALCIUM 9.1 mg/dL (8.5-10.1)
[2021-03-01 10:11] LABS: ALBUMIN 3.4 g/dl (3.4-5.0); ANION GAP 7 MMOL/L (8-16); BLOOD UREA NITROGEN 11.1 mg/dL (7-18); CO2 25 mmol/L (21-32)
[2021-03-01 10:14] LABS: CREATININE 0.7 mg/dL (0.55-1.3); SGOT/AST 16 U/L (15-37); SGPT/ALT 32 U/L (13-61)
[2021-03-01 10:15] LABS: BILIRUBIN,TOTAL 0.9 mg/dL (0.2-1)
[2021-03-01 10:16] LABS: TOT PROT 6.8 g/dl (6.4-8.2)
[2021-03-01 10:17] LABS: ALK PHOS 90 U/L (45-117)
[2021-03-01 10:25] LABS: GLUCOSE,RANDOM 410 mg/dL (74-106)
[2021-03-01] MEDS: INSULIN REGULAR HUMAN 100 UNITS/ML *VIAL SQ ONE ×2 (11:25→11:39)
[2021-03-01 11:30] LABS: LIPASE 121 U/L (73-393)
[2021-03-01] MEDS ORDERED: Insulin (LOG) Aspart 100 UNITS/ML VIAL SQ ONE (11:31)
== END 2021-03-01 17:20 | disposition home or self-care (01) ==
LOC: JERFT 08:40 → JER 08:40 → JERFT 17:20
PROC: 3E0333Z Introduction of Anti-inflammatory into Peripheral Vein, Percutaneous Approach (ICD-10-PCS; principal; 2021-03-01)
PROC: 3E033GC Introduction of Other Therapeutic Substance into Peripheral Vein, Percutaneous Approach (ICD-10-PCS; 2021-03-01)
PROC: 3E0337Z Introduction of Electrolytic and Water Balance Substance into Peripheral Vein, Percutaneous Approach (ICD-10-PCS; 2021-03-01)
PROC: 3E0337Z Introduction of Electrolytic and Water Balance Substance into Peripheral Vein, Percutaneous Approach (ICD-10-PCS; 2021-03-01)
DX: R10.9 Unspecified abdominal pain (principal)
CPT/HCPCS: 36415; 74177-TC; 76830-TC; 80053; 81003; 82550; 82962; 83690; 84484; 84703; 85025; 85610; 87086; 93005; 93010; 99285-25; J0131; Q9967

== ENCOUNTER 2021-09-18 07:16 | Emergency (ER) | payer OTHER ==
[2021-09-18 07:38] VITALS: BP 150/83; PULSE 89; TEMP 98.2; BMI 32.0
[2021-09-18] MEDS ORDERED: SODIUM CHLORIDE 1,000 ML IV STA ×3 (08:17→10:43)
[2021-09-18] MEDS ORDERED: ACETAMINOPHEN 1000 MG/100 ML VIAL IVPB ONE (08:17)
[2021-09-18] MEDS ORDERED: ACETAMINOPHEN INJECTION 100 ML IVPB ONE (08:30)
[2021-09-18 08:43] LABS: EOS % 3.3 % (0-4.5); HEMOGLOBIN 13.8 GM/dL (10.7-15.3); LYMPH % 26.4 % (8-40); MCH 29.5 pg (25.7-33.7); MCHC 34.6 g/dl (32.0-36.0); MEAN CELL VOLUME 85.2 fl (80-96); MEAN PLT VOLUME 8.5 fl (7.5-11.1); MONO % 5.7 % (3.8-10.2); NEUT % 63.6 % (42.8-82.8); PLATELET COUNT 210 10^3/uL (134-434); RBC 4.69 M/mm3 (3.60-5.2); RDW 12.6 % (11.6-15.6); WHITE BLOOD COUNT 6.1 K/mm3 (4.0-10.0)
[2021-09-18 08:55] LABS: CHLORIDE 95 mmol/L (98-107); SODIUM 130 mmol/L (136-145)
[2021-09-18 08:58] LABS: ALBUMIN 3.4 g/dl (3.4-5.0); ANION GAP 11 MMOL/L (8-16); BLOOD UREA NITROGEN 24.3 mg/dL (7-18); CALCIUM 8.9 mg/dL (8.5-10.1); CO2 24 mmol/L (21-32)
[2021-09-18 09:01] LABS: CREATININE 0.9 mg/dL (0.55-1.3); SGOT/AST 15 U/L (15-37); SGPT/ALT 41 U/L (13-61)
[2021-09-18 09:02] LABS: BILIRUBIN,TOTAL 0.4 mg/dL (0.2-1); TOT PROT 7.5 g/dl (6.4-8.2)
[2021-09-18 09:05] LABS: ALK PHOS 118 U/L (45-117)
[2021-09-18 09:08] LABS: GLUCOSE,RANDOM 663 mg/dL (74-106)
[2021-09-18] MEDS ORDERED: INSULIN REGULAR HUMAN 100 UNITS/ML *VIAL IVPUSH ONE (09:09)
[2021-09-18 09:18] LABS: URINE APPEARANCE CLEAR; URINE BILIRUBIN NEGATIVE (NEGATIVE); URINE COLOR YELLOW; URINE GLUCOSE (UA) 3+ (NEGATIVE); URINE KETONE NEGATIVE (NEGATIVE); URINE LEUK ESTERASE NEGATIVE (NEGATIVE); URINE NITRITE NEGATIVE (NEGATIVE); URINE PROTEIN NEGATIVE (NEGATIVE); URINE UROBILINOGEN 0.2 mg/dL (0.2-1.0)
[2021-09-18 09:19] LABS: HCG,QUALITATIVE URINE Negative
== END 2021-09-18 14:50 | disposition left against medical advice (07) ==
LOC: JER 07:16
PROC: 3E0333Z Introduction of Anti-inflammatory into Peripheral Vein, Percutaneous Approach (ICD-10-PCS; principal; 2021-09-18)
PROC: 3E0337Z Introduction of Electrolytic and Water Balance Substance into Peripheral Vein, Percutaneous Approach (ICD-10-PCS; 2021-09-18)
PROC: 3E0337Z Introduction of Electrolytic and Water Balance Substance into Peripheral Vein, Percutaneous Approach (ICD-10-PCS; 2021-09-18)
PROC: 3E0337Z Introduction of Electrolytic and Water Balance Substance into Peripheral Vein, Percutaneous Approach (ICD-10-PCS; 2021-09-18)
DX: R73.9 Hyperglycemia, unspecified (principal); R10.9 Unspecified abdominal pain
CPT/HCPCS: 36415; 74176-TC; 80053; 81003; 82010; 82962; 84703; 85025; 87086; 99284-25; J0131

== ENCOUNTER 2022-02-20 03:07 | Emergency (ER) | payer OTHER ==
[2022-02-20 03:33] VITALS: BMI 29.8
[2022-02-20] MEDS ORDERED: ACETAMINOPHEN 325 MG TABLET (FP) PO ONE (04:07)
[2022-02-20] MEDS ORDERED: ACETAMINOPHEN 325 MG TABLET (FP) ONE (04:11)
[2022-02-20] MEDS ORDERED: KETOROLAC TROMETHAMINE 30 MG/1 ML VIAL IM ONE (05:06)
[2022-02-20] MEDS ORDERED: KETOROLAC TROMETHAMINE 30 MG/1 ML VIAL ONE (05:10)
[2022-02-20 05:44] LABS: EPI CELLS 17 /uL (0-25.1); HYALINE CASTS 4 /uL (0-3.1); URINE APPEARANCE TURBID; URINE BILIRUBIN 1+ (NEGATIVE); URINE COLOR ORANGE; URINE GLUCOSE (UA) TRACE (NEGATIVE); URINE KETONE NEGATIVE (NEGATIVE); URINE LEUK ESTERASE 1+ (NEGATIVE); URINE NITRITE POSITIVE (NEGATIVE); URINE PROTEIN 3+ (NEGATIVE); URINE UROBILINOGEN 0.2 mg/dL (0.2-1.0); URINE WBC 18128 /uL (0-25.8)
[2022-02-20 06:34] VITALS: BP 134/82; PULSE 91; TEMP 98.6
[2022-02-20 09:48] LABS: URINE RBC 14136 /uL (0-23.9)
[2022-02-20 09:49] LABS: URINE BACTERIA MANY /uL (0-1359); YEAST NONE SEEN (NEGATIVE)
== END 2022-02-20 06:40 | disposition home or self-care (01) ==
LOC: JER 03:07
PROC: 3E0233Z Introduction of Anti-inflammatory into Muscle, Percutaneous Approach (ICD-10-PCS; principal; 2022-02-20)
DX: N10 Acute pyelonephritis (principal)
CPT/HCPCS: 81003; 82962; 87086; 99284-25

== ENCOUNTER 2022-07-03 20:26 | Emergency (ER) | payer OTHER ==
[2022-07-03 21:35] VITALS: BP 136/84; PULSE 97; RESP 20; TEMP 98.2; BMI 36.6
[2022-07-03] MEDS ORDERED: IBUPROFEN 600 MG TABLET (FP) PO ONE ×2 (22:20→22:25)
== END 2022-07-04 01:05 | disposition home or self-care (01) ==
LOC: JER 20:26 → JERFT 20:26
DX: M79.605 Pain in left leg (principal)
CPT/HCPCS: 82962; 93005; 93010; 93971-TC; 99284-25

== ENCOUNTER 2022-08-11 21:43 | Emergency (ER) | payer OTHER ==
[2022-08-11 21:49] VITALS: TEMP 98.6; BMI 28.4
[2022-08-11] MEDS ORDERED: ACETAMINOPHEN 325 MG TABLET (FP) PO ONE (22:52)
[2022-08-11] MEDS ORDERED: ACETAMINOPHEN 325 MG TABLET (FP) ONE (23:00)
[2022-08-11 23:48] LABS: BASO % 0.2 % (0-2.0); EOS % 3.6 % (0-4.5); HEMATOCRIT 35.6 % (32.4-45.2); HEMOGLOBIN 12.2 GM/dL (10.7-15.3); LYMPH % 34.5 % (8-40); MCH 28.5 pg (25.7-33.7); MCHC 34.3 g/dl (32.0-36.0); MEAN CELL VOLUME 82.9 fl (80-96); MONO % 6.5 % (3.8-10.2); NEUT % 55.2 % (42.8-82.8); PLATELET COUNT 266 10^3/uL (134-434); RDW 13.9 % (11.6-15.6); WHITE BLOOD COUNT 8.8 K/mm3 (4.0-10.0)
[2022-08-12 00:09] LABS: CALCIUM 9.3 mg/dL (8.5-10.1)
[2022-08-12 00:10] LABS: ALBUMIN 3.5 g/dl (3.4-5.0); BLOOD UREA NITROGEN 20.3 mg/dL (7-18)
[2022-08-12 00:13] LABS: CREATININE 0.9 mg/dL (0.55-1.3)
[2022-08-12 00:14] LABS: BILIRUBIN,TOTAL 0.3 mg/dL (0.2-1); TOT PROT 7.5 g/dl (6.4-8.2)
[2022-08-12] MEDS ORDERED: ACETAMINOPHEN 1000 MG/100 ML BAG IVPB ONE (01:47)
[2022-08-12 02:02] VITALS: BP 135/83; PULSE 79; RESP 14
[2022-08-12 03:28] LABS: URINE APPEARANCE CLEAR; URINE BILIRUBIN NEGATIVE (NEGATIVE); URINE COLOR YELLOW; URINE GLUCOSE (UA) 3+ (NEGATIVE); URINE KETONE NEGATIVE (NEGATIVE); URINE LEUK ESTERASE NEGATIVE (NEGATIVE); URINE NITRITE NEGATIVE (NEGATIVE); URINE PROTEIN NEGATIVE (NEGATIVE); URINE UROBILINOGEN 0.2 mg/dL (0.2-1.0)
[2022-08-12] MEDS ORDERED: diphenhydrAMINE HCL 25 MG CAPSULE (FP) PO ONE (04:25)
[2022-08-12] MEDS ORDERED: diphenhydrAMINE HCL 50 MG CAPSULE PO ONE (04:34)
== END 2022-08-12 04:43 | disposition home or self-care (01) ==
LOC: JER 21:43
DX: R21 Rash and other nonspecific skin eruption (principal); L04.9 Acute lymphadenitis, unspecified
CPT/HCPCS: 36415; 74177-TC; 76830-TC; 80053; 81003; 83690; 84702; 85025; 87086; 87186; 99285-25; Q9967

== ENCOUNTER 2022-08-19 03:23 | Observation (INO) | payer OTHER ==
[2022-08-19] MEDS ORDERED: ASPIRIN 81 MG CHEWABLE TABLETS PO ONE ×2 (03:50→04:21)
[2022-08-19] MEDS ORDERED: ONDANSETRON 4 MG/2 ML VIAL IVPUSH ONE (03:50)
[2022-08-19] MEDS ORDERED: ACETAMINOPHEN 1000 MG/100 ML BAG IVPB ONE (03:50)
[2022-08-19] MEDS ORDERED: ACETAMINOPHEN INJECTION 100 ML IVPB ONE (04:04)
[2022-08-19] MEDS ORDERED: ONDANSETRON 4 MG/2 ML VIAL ONE (04:04)
[2022-08-19 04:11] LABS: BASO % 0.8 % (0-2.0); EOS % 3.1 % (0-4.5); HEMATOCRIT 38.6 % (32.4-45.2); LYMPH % 23.3 % (8-40); MCHC 33.6 g/dl (32.0-36.0); MEAN CELL VOLUME 83.5 fl (80-96); MEAN PLT VOLUME 8.2 fl (7.5-11.1); MONO % 6.2 % (3.8-10.2); NEUT % 66.6 % (42.8-82.8); PLATELET COUNT 266 10^3/uL (134-434); RBC 4.62 M/mm3 (3.60-5.2); WHITE BLOOD COUNT 9.3 K/mm3 (4.0-10.0)
[2022-08-19] MEDS ORDERED: diphenhydrAMINE HCL 25 MG CAPSULE (FP) PO ONE ×2 (04:12)
[2022-08-19 04:17] LABS: INR 0.94 (0.83-1.09); PROTHROMBIN TIME (PATIENT) 10.8 SEC (9.7-13.0)
[2022-08-19 04:20] LABS: ACTIVATED PTT 32.9 SECONDS (25.2-36.5)
[2022-08-19 04:33] LABS: ALBUMIN 3.9 g/dl (3.4-5.0); BLOOD UREA NITROGEN 22.2 mg/dL (7-18); CALCIUM 9.3 mg/dL (8.5-10.1)
[2022-08-19 04:36] LABS: CREATININE 0.9 mg/dL (0.55-1.3)
[2022-08-19] MEDS ORDERED: ASPIRIN 81 MG CHEWABLE TABLETS ONE (04:36)
[2022-08-19 04:39] LABS: BILIRUBIN,TOTAL 0.4 mg/dL (0.2-1)
[2022-08-19] MEDS ORDERED: INSULIN SLIDING SCALE (NOVOLOG) 1 VIAL SQ SCH (11:00)
[2022-08-19] MEDS ORDERED: ASPIRIN COATED 81 MG TABLET.EC ONE (13:14)
[2022-08-19] MEDS ORDERED: ENOXAPARIN NA (PORCINE) 40 MG/0.4 ML DISP.SYRIN SQ ONE (13:14)
[2022-08-19] MEDS: ASPIRIN COATED 81 MG TABLET.EC PO SCH (13:25)
[2022-08-19] MEDS: SODIUM CHLORIDE 1,000 ML IV SCH (13:25)
[2022-08-19] MEDS: ENOXAPARIN NA (PORCINE) 40 MG/0.4 ML DISP.SYRIN SQ SCH (14:32)
[2022-08-19] MEDS: INSULIN SLIDING SCALE (NOVOLOG) 1 VIAL SQ SCH ×2 (14:32→19:05)
[2022-08-19] MEDS: FAMOTIDINE 20 MG TABLET PO SCH (14:33)
[2022-08-19] MEDS ORDERED: FAMOTIDINE 20 MG TABLET ONE (14:34)
[2022-08-20] MEDS ORDERED: methylPREDNISolone NA SUCC 125 MG/2 ML VIAL IVPUSH ONE (04:54)
[2022-08-20] MEDS ORDERED: INSULIN REGULAR HUMAN 100 UNITS/ML *VIAL ONE (07:58)
[2022-08-20] MEDS ORDERED: diphenhydrAMINE HCL 25 MG CAPSULE (FP) PO PRN (11:00)
[2022-08-20] MEDS: INSULIN SLIDING SCALE (NOVOLOG) 1 VIAL SQ SCH ×5 (12:24→21:33)
[2022-08-20] MEDS ORDERED: INSULIN (LEVEMIR) 100 UNITS/ML UNITS SQ ONE ×2 (13:44→14:02)
[2022-08-20 14:01] LABS: CHOLESTEROL 258 mg/dL (50-200)
[2022-08-20] MEDS ORDERED: FAMOTIDINE 20 MG TABLET ONE (14:01)
[2022-08-20] MEDS ORDERED: ASPIRIN COATED 81 MG TABLET.EC ONE (14:01)
[2022-08-20 14:02] LABS: TRIGLYCERIDES 227 mg/dL (0-150)
[2022-08-20] MEDS ORDERED: ENOXAPARIN NA (PORCINE) 40 MG/0.4 ML DISP.SYRIN SQ ONE (14:02)
[2022-08-20 14:03] LABS: LDL CHOLESTEROL (ONLY SJRH) 143 mg/dL (5-100)
[2022-08-20 14:07] LABS: HDL CHOLESTEROL 40 mg/dL (40-60)
[2022-08-20] MEDS: SODIUM CHLORIDE 1,000 ML IV SCH ×2 (14:17→22:34)
[2022-08-20] MEDS: ENOXAPARIN NA (PORCINE) 40 MG/0.4 ML DISP.SYRIN SQ SCH (14:18)
[2022-08-20] MEDS: ASPIRIN COATED 81 MG TABLET.EC PO SCH (14:18)
[2022-08-20] MEDS: FAMOTIDINE 20 MG TABLET PO SCH (14:18)
[2022-08-20 18:18] VITALS: BMI 31.9
[2022-08-20] MEDS ORDERED: ATORVASTATIN CA 40 MG TABLET (FP) PO SCH (22:00)
[2022-08-20] MEDS: INSULIN (LEVEMIR) 100 UNITS/ML UNITS SQ SCH (22:06)
[2022-08-20] MEDS ORDERED: GABAPENTIN 400 MG CAPSULE PO ONE (22:58)
[2022-08-21] MEDS: INSULIN (NOVOLOG) ASPART 100 UNITS/ML 10ML VIAL SQ SCH ×2 (06:05→12:01)
[2022-08-21] MEDS: INSULIN SLIDING SCALE (NOVOLOG) 1 VIAL SQ SCH ×2 (06:06→12:01)
[2022-08-21] MEDS ORDERED: INSULIN (LEVEMIR) 100 UNITS/ML UNITS SQ SCH ×3 (07:00→22:00)
[2022-08-21] MEDS: ASPIRIN COATED 81 MG TABLET.EC PO SCH (11:13)
[2022-08-21] MEDS: FAMOTIDINE 20 MG TABLET PO SCH (11:13)
[2022-08-21] MEDS: ENOXAPARIN NA (PORCINE) 40 MG/0.4 ML DISP.SYRIN SQ SCH (11:13)
[2022-08-21] MEDS: SODIUM CHLORIDE 1,000 ML IV SCH (11:14)
[2022-08-21] MEDS: INSULIN (LEVEMIR) 100 UNITS/ML UNITS SQ SCH (11:16)
[2022-08-21 12:17] LABS: BASO % 0.2 % (0-2.0); EOS % 1.2 % (0-4.5); HEMATOCRIT 36.5 % (32.4-45.2); HEMOGLOBIN 11.9 GM/dL (10.7-15.3); LYMPH % 22.7 % (8-40); MCH 27.1 pg (25.7-33.7); MCHC 32.5 g/dl (32.0-36.0); MEAN CELL VOLUME 83.3 fl (80-96); MEAN PLT VOLUME 8.8 fl (7.5-11.1); MONO % 4.5 % (3.8-10.2); NEUT % 71.4 % (42.8-82.8); PLATELET COUNT 288 10^3/uL (134-434); RBC 4.38 M/mm3 (3.60-5.2); RDW 13.9 % (11.6-15.6); WHITE BLOOD COUNT 12.8 K/mm3 (4.0-10.0)
[2022-08-21 12:34] LABS: ALBUMIN 3.2 g/dl (3.4-5.0); BLOOD UREA NITROGEN 25.9 mg/dL (7-18)
[2022-08-21 12:37] LABS: CREATININE 0.8 mg/dL (0.55-1.3)
[2022-08-21 12:39] LABS: BILIRUBIN,TOTAL 0.4 mg/dL (0.2-1); TOT PROT 7.1 g/dl (6.4-8.2)
[2022-08-21 13:34] VITALS: RESP 16
[2022-08-21 14:38] VITALS: BP 156/87; PULSE 86; TEMP 98.4
== END 2022-08-21 17:34 | disposition home or self-care (01) ==
LOC: JER 03:23 → INTOOBSV 05:39 → JERBED 05:39 → J4S 08-20 17:28
PROVIDERS: ADMIT Internal Medicine; ATTEND Nurse Practitioner Acute Care
PROC: 3E033NZ Introduction of Analgesics, Hypnotics, Sedatives into Peripheral Vein, Percutaneous Approach (ICD-10-PCS; principal; 2022-08-19)
PROC: 3E033GC Introduction of Other Therapeutic Substance into Peripheral Vein, Percutaneous Approach (ICD-10-PCS; 2022-08-19)
PROC: 3E023GC Introduction of Other Therapeutic Substance into Muscle, Percutaneous Approach (ICD-10-PCS; 2022-08-19)
PROC: 3E013VG Introduction of Insulin into Subcutaneous Tissue, Percutaneous Approach (ICD-10-PCS; 2022-08-19)
PROC: 3E0337Z Introduction of Electrolytic and Water Balance Substance into Peripheral Vein, Percutaneous Approach (ICD-10-PCS; 2022-08-19)
DX: R07.9 Chest pain, unspecified (principal); R19.7 Diarrhea, unspecified; E11.9 Type 2 diabetes mellitus without complications; Z29.8 Encounter for other specified prophylactic measures; Z88.8 Allergy status to other drugs, medicaments and biological substances
CPT/HCPCS: 0241U-QW; 36415; 71045-TC-FY; 78452-TC; 80053; 80061; 82962; 83036; 84484; 85025; 85610; 85730; 86850; 86900; 86901; 93005; 93010; 93017; 93306-TC; 96361; 96372; 96374; 96375; 99285-25; A9502; G0378

== ENCOUNTER 2022-11-11 04:17 | Emergency (ER) | payer OTHER ==
[2022-11-11 04:35] VITALS: BP 109/75; PULSE 101; RESP 20; TEMP 98.2; BMI 32.5
[2022-11-11] MEDS ORDERED: diphenhydrAMINE HCL 25 MG CAPSULE (FP) PO ONE ×2 (04:59→05:04)
[2022-11-11] MEDS ORDERED: FAMOTIDINE 20 MG TABLET PO ONE (04:59)
[2022-11-11] MEDS ORDERED: DEXAMETHASONE 4 MG TABLET (FP) PO ONE (05:00)
[2022-11-11] MEDS ORDERED: DEXAMETHASONE 4 MG TABLET (FP) ONE (05:04)
[2022-11-11] MEDS ORDERED: FAMOTIDINE 20 MG TABLET ONE (05:04)
== END 2022-11-11 05:32 | disposition home or self-care (01) ==
LOC: JER 04:17
DX: L23.9 Allergic contact dermatitis, unspecified cause (principal)
CPT/HCPCS: 99283-25

== ENCOUNTER 2022-12-13 21:48 | Inpatient (IN) | payer OTHER ==
[2022-12-13] MEDS ORDERED: METOCLOPRAMIDE HCL INJECTION 10 MG/2 ML VIAL IVPUSH ONE (23:06)
[2022-12-13] MEDS ORDERED: LACTATED RINGERS SOLUTION 1000 ML INFUS.BAG IV ONE (23:06)
[2022-12-13 23:19] LABS: BASO % 0.6 % (0-2.0); EOS % 5.1 % (0-4.5); HEMOGLOBIN 12.5 GM/dL (10.7-15.3); LYMPH % 37.4 % (8-40); MCH 27.6 pg (25.7-33.7); MCHC 32.8 g/dl (32.0-36.0); MEAN CELL VOLUME 84.1 fl (80-96); MEAN PLT VOLUME 8.1 fl (7.5-11.1); NEUT % 47.9 % (42.8-82.8); PLATELET COUNT 267 10^3/uL (134-434); RBC 4.52 M/mm3 (3.60-5.2); RDW 14.8 % (11.6-15.6); WHITE BLOOD COUNT 7.3 K/mm3 (4.0-10.0)
[2022-12-13] MEDS ORDERED: KETOROLAC TROMETHAMINE 15 MG/ML VIAL IVPUSH ONE (23:25)
[2022-12-13] MEDS ORDERED: METOCLOPRAMIDE HCL INJECTION 10 MG/2 ML VIAL ONE (23:27)
[2022-12-13 23:28] LABS: INR 0.92 (0.83-1.09); PROTHROMBIN TIME (PATIENT) 10.6 SEC (9.7-13.0)
[2022-12-13 23:30] LABS: ACTIVATED PTT 34.1 SECONDS (25.2-36.5)
[2022-12-13 23:36] LABS: ALBUMIN 3.4 g/dl (3.4-5.0); BLOOD UREA NITROGEN 15.6 mg/dL (7-18); CALCIUM 9.3 mg/dL (8.5-10.1)
[2022-12-13] MEDS ORDERED: KETOROLAC TROMETHAMINE 15 MG/ML VIAL ONE (23:38)
[2022-12-13 23:39] LABS: CREATININE 0.7 mg/dL (0.55-1.3)
[2022-12-13 23:40] LABS: BILIRUBIN,TOTAL 0.2 mg/dL (0.2-1); TOT PROT 7.1 g/dl (6.4-8.2)
[2022-12-14 00:22] LABS: PH,URINE 5.5 (5.0-8.0); URINE APPEARANCE CLEAR; URINE BILIRUBIN NEGATIVE (NEGATIVE); URINE COLOR YELLOW; URINE GLUCOSE (UA) 2+ (NEGATIVE); URINE KETONE NEGATIVE (NEGATIVE); URINE LEUK ESTERASE NEGATIVE (NEGATIVE); URINE NITRITE NEGATIVE (NEGATIVE); URINE PROTEIN TRACE (NEGATIVE); URINE UROBILINOGEN 0.2 mg/dL (0.2-1.0)
[2022-12-14] MEDS ORDERED: DEXAMETHASONE SOD PHOSPHATE 10 MG/1 ML VIAL IVPUSH ONE (00:34)
[2022-12-14] MEDS ORDERED: MAGNESIUM SULF 50% (8.12 MEQ/2 ML-1 GM VIAL) IVPB ONE (00:34)
[2022-12-14] MEDS ORDERED: MAGNESIUM SULF 50% (8.12 MEQ/2 ML-1 GM VIAL) ONE (01:00)
[2022-12-14] MEDS ORDERED: DEXAMETHASONE SOD PHOSPHATE 10 MG/1 ML VIAL ONE (01:01)
[2022-12-14] MEDS ORDERED: MAGNESIUM 1GM/D5W - 1 GM/100 ML IVPB IVPB ONE (01:01)
[2022-12-14 08:47] LABS: HEMATOCRIT 38.1 % (32.4-45.2); HEMOGLOBIN 12.5 GM/dL (10.7-15.3); MCH 27.8 pg (25.7-33.7); MCHC 32.9 g/dl (32.0-36.0); MEAN CELL VOLUME 84.3 fl (80-96); MEAN PLT VOLUME 8.3 fl (7.5-11.1); PLATELET COUNT 246 10^3/uL (134-434); RBC 4.52 M/mm3 (3.60-5.2); RDW 14.7 % (11.6-15.6); WHITE BLOOD COUNT 6.4 K/mm3 (4.0-10.0)
[2022-12-14 08:55] LABS: URINE BARBITURATES NEGATIVE (NEGATIVE)
[2022-12-14 08:56] LABS: PHENCYCLIDINE,URINE NEGATIVE (NEGATIVE); URINE BENZODIAZEPINES NEGATIVE (NEGATIVE)
[2022-12-14 08:57] LABS: COCAINE, UR NEGATIVE (NEGATIVE); OPIATES, URI NEGATIVE (NEGATIVE)
[2022-12-14 08:59] LABS: METHADONE, UR NEGATIVE (NEGATIVE); URINE AMPHETAMINES NEGATIVE (NEGATIVE)
[2022-12-14] MEDS: INSULIN SLIDING SCALE (NOVOLOG) 1 VIAL SQ SCH ×3 (09:01→18:23)
[2022-12-14 09:14] LABS: CALCIUM 8.9 mg/dL (8.5-10.1)
[2022-12-14 09:15] LABS: ALBUMIN 3.2 g/dl (3.4-5.0); BLOOD UREA NITROGEN 17.3 mg/dL (7-18)
[2022-12-14 09:18] LABS: CREATININE 0.9 mg/dL (0.55-1.3)
[2022-12-14 09:20] LABS: BILIRUBIN,TOTAL 0.3 mg/dL (0.2-1); TOT PROT 6.7 g/dl (6.4-8.2)
[2022-12-14] MEDS ORDERED: ENOXAPARIN NA (PORCINE) 40 MG/0.4 ML DISP.SYRIN SQ ONE (10:42)
[2022-12-14] MEDS: ENOXAPARIN NA (PORCINE) 40 MG/0.4 ML DISP.SYRIN SQ SCH (10:43)
[2022-12-14] MEDS ORDERED: TOPIRAMATE 25 MG TABLET PO ONE (13:00)
[2022-12-14] MEDS: INSULIN (LEVEMIR) 100 UNITS/ML UNITS SQ SCH (13:13)
[2022-12-14] MEDS ORDERED: ATORVASTATIN CA 80 MG TABLET (FP) PO ONE (13:15)
[2022-12-14] MEDS ORDERED: TOPIRAMATE 25 MG TABLET ONE (13:15)
[2022-12-14] MEDS ORDERED: ATORVASTATIN CA 80 MG TABLET (FP) ONE (13:15)
[2022-12-14] MEDS ORDERED: ACETAMINOPHEN 325 MG TABLET (FP) PO PRN (23:28)
[2022-12-14] MEDS ORDERED: KETOROLAC TROMETHAMINE 15 MG/ML VIAL IVPUSH ONE (23:49)
[2022-12-15] MEDS: INSULIN SLIDING SCALE (NOVOLOG) 1 VIAL SQ SCH ×5 (00:06→22:38)
[2022-12-15] MEDS: INSULIN (LEVEMIR) 100 UNITS/ML UNITS SQ SCH ×3 (00:06→22:38)
[2022-12-15 05:05] VITALS: BMI 33.3
[2022-12-15 09:44] LABS: BASO % 0.5 % (0-2.0); EOS % 1.6 % (0-4.5); HEMATOCRIT 33.2 % (32.4-45.2); HEMOGLOBIN 11.5 GM/dL (10.7-15.3); LYMPH % 27.3 % (8-40); MCH 28.9 pg (25.7-33.7); MCHC 34.7 g/dl (32.0-36.0); MEAN CELL VOLUME 83.3 fl (80-96); MEAN PLT VOLUME 8.1 fl (7.5-11.1); MONO % 5.7 % (3.8-10.2); NEUT % 64.9 % (42.8-82.8); PLATELET COUNT 245 10^3/uL (134-434); RBC 3.98 M/mm3 (3.60-5.2); RDW 14.7 % (11.6-15.6); WHITE BLOOD COUNT 10.7 K/mm3 (4.0-10.0)
[2022-12-15 10:05] LABS: ALBUMIN 3.1 g/dl (3.4-5.0); BLOOD UREA NITROGEN 23.7 mg/dL (7-18); CALCIUM 8.6 mg/dL (8.5-10.1)
[2022-12-15 10:08] LABS: CREATININE 0.9 mg/dL (0.55-1.3)
[2022-12-15 10:10] LABS: BILIRUBIN,TOTAL 0.5 mg/dL (0.2-1); TOT PROT 6.6 g/dl (6.4-8.2)
[2022-12-15] MEDS: ENOXAPARIN NA (PORCINE) 40 MG/0.4 ML DISP.SYRIN SQ SCH (11:08)
[2022-12-15] MEDS ORDERED: MECLIZINE HCL 12.5 MG TABLET PO PRN (11:48)
[2022-12-15] MEDS: GABAPENTIN 100 MG CAPSULE PO SCH ×2 (14:04→22:39)
[2022-12-16] MEDS: GABAPENTIN 100 MG CAPSULE PO SCH ×3 (06:55→22:39)
[2022-12-16] MEDS: INSULIN (LEVEMIR) 100 UNITS/ML UNITS SQ SCH ×2 (06:55→22:40)
[2022-12-16] MEDS: INSULIN SLIDING SCALE (NOVOLOG) 1 VIAL SQ SCH ×4 (06:55→23:09)
[2022-12-16] MEDS ORDERED: INSULIN (NOVOLOG) ASPART 100 UNITS/ML 10ML VIAL ONE (07:09)
[2022-12-16] MEDS: ENOXAPARIN NA (PORCINE) 40 MG/0.4 ML DISP.SYRIN SQ SCH (09:53)
[2022-12-16] MEDS: MECLIZINE HCL 12.5 MG TABLET PO SCH ×3 (12:05→22:39)
[2022-12-16] MEDS ORDERED: ROSUVASTATIN CA 20 MG TABLET PO SCH (22:00)
[2022-12-16] MEDS: BUDESONIDE/FORMETEROL FUMARATE 160/4.5 mcg INHALER IH SCH (23:12)
[2022-12-17] MEDS: GABAPENTIN 100 MG CAPSULE PO SCH ×2 (06:20→13:43)
[2022-12-17] MEDS: MECLIZINE HCL 12.5 MG TABLET PO SCH ×2 (06:20→13:43)
[2022-12-17] MEDS: INSULIN (LEVEMIR) 100 UNITS/ML UNITS SQ SCH (06:21)
[2022-12-17] MEDS: INSULIN SLIDING SCALE (NOVOLOG) 1 VIAL SQ SCH ×3 (06:33→17:25)
[2022-12-17 07:45] VITALS: RESP 20
[2022-12-17] MEDS: ENOXAPARIN NA (PORCINE) 40 MG/0.4 ML DISP.SYRIN SQ SCH (09:28)
[2022-12-17] MEDS: BUDESONIDE/FORMETEROL FUMARATE 160/4.5 mcg INHALER IH SCH (09:29)
[2022-12-17] MEDS ORDERED: ASPIRIN COATED 81 MG TABLET.EC PO SCH (10:00)
[2022-12-17] MEDS ORDERED: ENALAPRIL MALEATE 10 MG TABLET PO SCH (10:00)
[2022-12-17 14:57] VITALS: BP 130/80; PULSE 100; TEMP 99
== END 2022-12-17 18:10 | disposition home or self-care (01) | DRG 111 ==
LOC: JER 21:48 → JERBED 12-14 01:59 → J8W 12-14 22:11
PROVIDERS: ADMIT Internal Medicine; ATTEND Nurse Practitioner Acute Care
DX: H81.10 Benign paroxysmal vertigo, unspecified ear (principal); E11.40 Type 2 diabetes mellitus with diabetic neuropathy, unspecified; H91.90 Unspecified hearing loss, unspecified ear; I10 Essential (primary) hypertension; E78.5 Hyperlipidemia, unspecified; E11.65 Type 2 diabetes mellitus with hyperglycemia; R51.9 Headache, unspecified
CPT/HCPCS: 0241U-QW; 36415; 70450-TC; 70553-TC; 80053; 80061; 80307; 81003; 82962; 83036; 84443; 85025; 85027; 85610; 85730; 86850; 86900; 86901; 87081; 93005; 93010; 97116-GP; 97162-GP; 99285-25; A9579; J1100

== ENCOUNTER 2022-12-23 22:57 | Observation (INO) | payer OTHER ==
[2022-12-23 23:05] VITALS: BMI 32.9
[2022-12-23] MEDS ORDERED: SODIUM CHLORIDE 0.9% 500 ML INFUS.BAG IV ONE (23:13)
[2022-12-23] MEDS ORDERED: MECLIZINE HCL 25 MG TABLET (FP) PO ONE (23:33)
[2022-12-23] MEDS ORDERED: ACETAMINOPHEN 1000 MG/100 ML BAG IVPB ONE (23:33)
[2022-12-23] MEDS ORDERED: METOCLOPRAMIDE HCL INJECTION 10 MG/2 ML VIAL IVPUSH ONE (23:33)
[2022-12-23] MEDS ORDERED: LIDOCAINE 5% TOPICAL PATCH TP ONE (23:35)
[2022-12-23] MEDS ORDERED: METOCLOPRAMIDE HCL INJECTION 10 MG/2 ML VIAL ONE (23:48)
[2022-12-23] MEDS ORDERED: ACETAMINOPHEN INJECTION 100 ML IVPB ONE (23:48)
[2022-12-23] MEDS ORDERED: MECLIZINE HCL 25 MG TABLET (FP) ONE (23:48)
[2022-12-23 23:55] LABS: EOS % 5.9 % (0-4.5); HEMATOCRIT 37.5 % (32.4-45.2); HEMOGLOBIN 12.5 GM/dL (10.7-15.3); LYMPH % 29.7 % (8-40); MCH 27.7 pg (25.7-33.7); MCHC 33.2 g/dl (32.0-36.0); MEAN CELL VOLUME 83.4 fl (80-96); MEAN PLT VOLUME 8.5 fl (7.5-11.1); MONO % 10.4 % (3.8-10.2); PLATELET COUNT 263 10^3/uL (134-434); RDW 14.6 % (11.6-15.6); WHITE BLOOD COUNT 8.6 K/mm3 (4.0-10.0)
[2022-12-23] MEDS ORDERED: LIDOCAINE 5% TOPICAL PATCH ONE (23:58)
[2022-12-24 00:16] LABS: ALBUMIN 3.2 g/dl (3.4-5.0); BLOOD UREA NITROGEN 19.6 mg/dL (7-18)
[2022-12-24 00:19] LABS: CREATININE 0.8 mg/dL (0.55-1.3)
[2022-12-24 00:20] LABS: TOT PROT 6.9 g/dl (6.4-8.2)
[2022-12-24 00:35] LABS: BILIRUBIN,TOTAL 0.3 mg/dL (0.2-1)
[2022-12-24] MEDS ORDERED: MECLIZINE HCL 25 MG TABLET (FP) PO PRN (10:35)
[2022-12-24 12:00] LABS: BASO % 0.4 % (0-2.0); EOS % 6.9 % (0-4.5); HEMATOCRIT 37.8 % (32.4-45.2); HEMOGLOBIN 12.6 GM/dL (10.7-15.3); LYMPH % 31.5 % (8-40); MCHC 33.4 g/dl (32.0-36.0); MEAN PLT VOLUME 9.2 fl (7.5-11.1); MONO % 8.3 % (3.8-10.2); NEUT % 52.9 % (42.8-82.8); PLATELET COUNT 255 10^3/uL (134-434); RBC 4.51 M/mm3 (3.60-5.2); RDW 14.7 % (11.6-15.6); WHITE BLOOD COUNT 6.2 K/mm3 (4.0-10.0)
[2022-12-24 12:12] LABS: ALBUMIN 3.1 g/dl (3.4-5.0); BLOOD UREA NITROGEN 13.3 mg/dL (7-18); CALCIUM 9.1 mg/dL (8.5-10.1); MAGNESIUM 1.8 mg/dL (1.8-2.4)
[2022-12-24 12:15] LABS: CREATININE 0.6 mg/dL (0.55-1.3); PHOSPHOROUS 3.4 mg/dL (2.5-4.9)
[2022-12-24 12:17] LABS: BILIRUBIN,TOTAL 0.4 mg/dL (0.2-1); TOT PROT 6.3 g/dl (6.4-8.2)
[2022-12-24] MEDS ORDERED: ROSUVASTATIN CA 20 MG TABLET PO ONE (13:24)
[2022-12-24] MEDS ORDERED: ENOXAPARIN NA (PORCINE) 40 MG/0.4 ML DISP.SYRIN SQ SCH (16:15)
[2022-12-24] MEDS: LIDOCAINE PATCH REMOVAL MC SCH ×2 (20:08→21:24)
[2022-12-24] MEDS ORDERED: VALPROATE SODIUM 500 MG/5 ML VIAL IVPB ONE (20:09)
[2022-12-24] MEDS ORDERED: VALPROATE SODIUM INJECTION 500 MG in SODIUM CHLORIDE 100 ML IVPB ONE (21:00)
[2022-12-24] MEDS: INSULIN SLIDING SCALE (NOVOLOG) 1 VIAL SQ SCH (21:23)
[2022-12-25] MEDS: INSULIN SLIDING SCALE (NOVOLOG) 1 VIAL SQ SCH ×4 (06:12→21:36)
[2022-12-25] MEDS ORDERED: DIVALPROEX NA *ER* EXTEND REL 250 MG TABLET.SA PO SCH (07:00)
[2022-12-25 09:34] LABS: BASO % 0.5 % (0-2.0); EOS % 6.1 % (0-4.5); HEMATOCRIT 37.4 % (32.4-45.2); HEMOGLOBIN 12.6 GM/dL (10.7-15.3); LYMPH % 25.9 % (8-40); MCH 27.6 pg (25.7-33.7); MCHC 33.5 g/dl (32.0-36.0); MEAN CELL VOLUME 82.3 fl (80-96); MONO % 7.3 % (3.8-10.2); NEUT % 60.2 % (42.8-82.8); PLATELET COUNT 273 10^3/uL (134-434); RBC 4.55 M/mm3 (3.60-5.2); RDW 14.9 % (11.6-15.6); WHITE BLOOD COUNT 6.9 K/mm3 (4.0-10.0)
[2022-12-25 10:11] LABS: BLOOD UREA NITROGEN 12.6 mg/dL (7-18); CALCIUM 9.2 mg/dL (8.5-10.1); MAGNESIUM 1.7 mg/dL (1.8-2.4)
[2022-12-25 10:13] LABS: PHOSPHOROUS 3.1 mg/dL (2.5-4.9); TOT PROT 6.6 g/dl (6.4-8.2)
[2022-12-25 10:14] LABS: CREATININE 0.8 mg/dL (0.55-1.3)
[2022-12-25 10:15] LABS: BILIRUBIN,TOTAL 0.3 mg/dL (0.2-1)
[2022-12-25] MEDS: ASPIRIN COATED 81 MG TABLET.EC PO SCH (10:50)
[2022-12-25] MEDS ORDERED: MAGNESIUM 1GM/D5W 100ML - 100 ML IVPB IVPB ONE (13:50)
[2022-12-25] MEDS ORDERED: MECLIZINE HCL 12.5 MG TABLET PO SCH (14:00)
[2022-12-25] MEDS ORDERED: GABAPENTIN 300 MG CAPSULE PO SCH (14:00)
[2022-12-25 16:55] LABS: HEMATOCRIT 41.1 % (32.4-45.2); HEMOGLOBIN 13.6 GM/dL (10.7-15.3); MCH 27.5 pg (25.7-33.7); MEAN CELL VOLUME 83.3 fl (80-96); MEAN PLT VOLUME 8.6 fl (7.5-11.1); PLATELET COUNT 278 10^3/uL (134-434); RBC 4.93 M/mm3 (3.60-5.2); RDW 14.5 % (11.6-15.6); WHITE BLOOD COUNT 6.7 K/mm3 (4.0-10.0)
[2022-12-25 17:25] LABS: BLOOD UREA NITROGEN 12.8 mg/dL (7-18); CALCIUM 9.7 mg/dL (8.5-10.1)
[2022-12-25 17:28] LABS: CREATININE 0.8 mg/dL (0.55-1.3)
[2022-12-25] MEDS ORDERED: DIVALPROEX NA *ER* EXTEND REL 500 MG TABLET.SA (FP) PO SCH (18:00)
[2022-12-25] MEDS: amLODIPine BESYLATE 5 MG TABLET (FP) PO SCH (18:06)
[2022-12-25] MEDS: ENALAPRIL MALEATE 10 MG TABLET PO SCH (18:06)
[2022-12-25] MEDS: DIVALPROEX NA *ER* EXTEND REL 250 MG TABLET.SA PO SCH (19:05)
[2022-12-25] MEDS: ROSUVASTATIN CA 20 MG TABLET PO SCH (21:28)
[2022-12-25] MEDS: GABAPENTIN 400 MG CAPSULE PO SCH (21:28)
[2022-12-25] MEDS ORDERED: QUEtiapine FUMARATE 25 MG TABLET PO SCH (22:00)
[2022-12-26] MEDS: DIVALPROEX NA *ER* EXTEND REL 250 MG TABLET.SA PO SCH (05:14)
[2022-12-26] MEDS: GABAPENTIN 400 MG CAPSULE PO SCH ×3 (05:14→21:42)
[2022-12-26] MEDS: INSULIN SLIDING SCALE (NOVOLOG) 1 VIAL SQ SCH ×4 (06:11→21:41)
[2022-12-26] MEDS: LIDOCAINE PATCH REMOVAL MC SCH ×2 (06:23→21:44)
[2022-12-26 09:58] LABS: HEMATOCRIT 38.7 % (32.4-45.2); HEMOGLOBIN 12.9 GM/dL (10.7-15.3); MCH 27.7 pg (25.7-33.7); MCHC 33.2 g/dl (32.0-36.0); MEAN CELL VOLUME 83.3 fl (80-96); MEAN PLT VOLUME 9.2 fl (7.5-11.1); PLATELET COUNT 260 10^3/uL (134-434); RBC 4.65 M/mm3 (3.60-5.2); RDW 14.8 % (11.6-15.6); WHITE BLOOD COUNT 6.9 K/mm3 (4.0-10.0)
[2022-12-26 10:26] LABS: CALCIUM 9.2 mg/dL (8.5-10.1)
[2022-12-26 10:29] LABS: CREATININE 0.8 mg/dL (0.55-1.3)
[2022-12-26 10:30] LABS: BILIRUBIN,TOTAL 0.3 mg/dL (0.2-1)
[2022-12-26 10:31] LABS: TOT PROT 6.4 g/dl (6.4-8.2)
[2022-12-26 10:34] LABS: BLOOD UREA NITROGEN 17.9 mg/dL (7-18)
[2022-12-26] MEDS: SERTRALINE HCL 50 MG TABLET (FP) PO SCH (10:56)
[2022-12-26] MEDS: amLODIPine BESYLATE 5 MG TABLET (FP) PO SCH (10:56)
[2022-12-26] MEDS: ENALAPRIL MALEATE 10 MG TABLET PO SCH (10:56)
[2022-12-26] MEDS: ASPIRIN COATED 81 MG TABLET.EC PO SCH (10:56)
[2022-12-26] MEDS ORDERED: DIVALPROEX NA *ER* EXTEND REL 500 MG TABLET.SA (FP) PO SCH (14:00)
[2022-12-26] MEDS: DIVALPROEX NA *ER* EXTEND REL 500 MG TABLET.SA (FP) PO SCH (17:22)
[2022-12-26] MEDS: QUEtiapine FUMARATE 25 MG TABLET PO SCH (21:42)
[2022-12-26] MEDS: ROSUVASTATIN CA 20 MG TABLET PO SCH (21:42)
[2022-12-27] MEDS: GABAPENTIN 400 MG CAPSULE PO SCH ×3 (06:24→21:07)
[2022-12-27] MEDS: DIVALPROEX NA *ER* EXTEND REL 500 MG TABLET.SA (FP) PO SCH (06:24)
[2022-12-27] MEDS: INSULIN SLIDING SCALE (NOVOLOG) 1 VIAL SQ SCH ×4 (06:39→21:12)
[2022-12-27 10:13] LABS: BLOOD UREA NITROGEN 19.7 mg/dL (7-18); CALCIUM 9.2 mg/dL (8.5-10.1)
[2022-12-27 10:16] LABS: CREATININE 0.9 mg/dL (0.55-1.3)
[2022-12-27] MEDS: ASPIRIN COATED 81 MG TABLET.EC PO SCH (11:32)
[2022-12-27] MEDS: amLODIPine BESYLATE 5 MG TABLET (FP) PO SCH (11:32)
[2022-12-27] MEDS: ENALAPRIL MALEATE 10 MG TABLET PO SCH (11:32)
[2022-12-27] MEDS: SERTRALINE HCL 50 MG TABLET (FP) PO SCH (11:32)
[2022-12-27] MEDS: DIVALPROEX NA *ER* EXTEND REL 250 MG TABLET.SA PO SCH (17:05)
[2022-12-27] MEDS: QUEtiapine FUMARATE 25 MG TABLET PO SCH (21:08)
[2022-12-27] MEDS: ROSUVASTATIN CA 20 MG TABLET PO SCH (21:08)
[2022-12-28] MEDS: DIVALPROEX NA *ER* EXTEND REL 250 MG TABLET.SA PO SCH ×2 (06:40→18:58)
[2022-12-28] MEDS: GABAPENTIN 400 MG CAPSULE PO SCH ×3 (06:40→21:13)
[2022-12-28] MEDS: INSULIN SLIDING SCALE (NOVOLOG) 1 VIAL SQ SCH ×4 (06:42→21:18)
[2022-12-28] MEDS: ENALAPRIL MALEATE 10 MG TABLET PO SCH (09:52)
[2022-12-28] MEDS: amLODIPine BESYLATE 5 MG TABLET (FP) PO SCH (09:52)
[2022-12-28] MEDS: SERTRALINE HCL 50 MG TABLET (FP) PO SCH (09:52)
[2022-12-28] MEDS ORDERED: QUEtiapine FUMARATE 25 MG TABLET PO SCH (10:44)
[2022-12-28 11:10] LABS: ALBUMIN 3.4 g/dl (3.4-5.0); BLOOD UREA NITROGEN 23.8 mg/dL (7-18); CALCIUM 9.2 mg/dL (8.5-10.1); MAGNESIUM 2.1 mg/dL (1.8-2.4)
[2022-12-28 11:12] LABS: PHOSPHOROUS 2.5 mg/dL (2.5-4.9)
[2022-12-28 11:14] LABS: BILIRUBIN,TOTAL 0.5 mg/dL (0.2-1)
[2022-12-28 15:17] VITALS: RESP 18
[2022-12-28] MEDS: ROSUVASTATIN CA 20 MG TABLET PO SCH (21:13)
[2022-12-29] MEDS: INSULIN SLIDING SCALE (NOVOLOG) 1 VIAL SQ SCH ×2 (06:08→12:25)
[2022-12-29] MEDS: GABAPENTIN 400 MG CAPSULE PO SCH ×2 (06:08→14:55)
[2022-12-29] MEDS: DIVALPROEX NA *ER* EXTEND REL 250 MG TABLET.SA PO SCH (06:09)
[2022-12-29] MEDS: amLODIPine BESYLATE 5 MG TABLET (FP) PO SCH (10:18)
[2022-12-29] MEDS: ENALAPRIL MALEATE 10 MG TABLET PO SCH (10:18)
[2022-12-29] MEDS: SERTRALINE HCL 50 MG TABLET (FP) PO SCH (10:18)
[2022-12-29 10:26] VITALS: BP 124/72; PULSE 89; TEMP 99.2
== END 2022-12-29 17:00 | disposition home or self-care (01) ==
LOC: JER 22:57 → UNDOADMOB 12-24 06:17 → JERBED 12-24 06:17 → J5S 12-24 08:42 → OBSVTOIN 12-24 11:15 → INTOOBSV 12-24 11:15 → J5S 12-24 16:18
PROVIDERS: ADMIT Internal Medicine; ATTEND Internal Medicine
PROC: 3E033NZ Introduction of Analgesics, Hypnotics, Sedatives into Peripheral Vein, Percutaneous Approach (ICD-10-PCS; principal; 2022-12-24)
PROC: 3E023GC Introduction of Other Therapeutic Substance into Muscle, Percutaneous Approach (ICD-10-PCS; 2022-12-24)
PROC: 3E013VG Introduction of Insulin into Subcutaneous Tissue, Percutaneous Approach (ICD-10-PCS; 2022-12-24)
PROC: 3E033GC Introduction of Other Therapeutic Substance into Peripheral Vein, Percutaneous Approach (ICD-10-PCS; 2022-12-24)
PROC: 3E0337Z Introduction of Electrolytic and Water Balance Substance into Peripheral Vein, Percutaneous Approach (ICD-10-PCS; 2022-12-24)
DX: G43.909 Migraine, unspecified, not intractable, without status migrainosus (principal); I10 Essential (primary) hypertension; E11.9 Type 2 diabetes mellitus without complications; I69.354 Hemiplegia and hemiparesis following cerebral infarction affecting left non-dominant side; M79.601 Pain in right arm; M54.2 Cervicalgia; M25.511 Pain in right shoulder; D64.9 Anemia, unspecified; N20.0 Calculus of kidney; F32.A Depression, unspecified; Z88.8 Allergy status to other drugs, medicaments and biological substances; E78.5 Hyperlipidemia, unspecified
CPT/HCPCS: 0241U-QW; 36415; 70450-TC; 70553-TC; 71045-TC-FY; 73070-TC-RT-FY; 73090-TC-RT-FY; 80048; 80053; 80164; 82550; 82553; 82962; 83735; 84100; 84484; 85025; 85027; 87040; 93005; 93010; 93306-TC; 93880-TC; 94010; 95816; 96365; 96372; 96375; 97116-GP; 97162-GP; 99285-25; A9579; G0378

== ENCOUNTER 2023-01-12 22:24 | Emergency (ER) | payer OTHER ==
[2023-01-12 22:32] VITALS: TEMP 98.2; BMI 32.9
[2023-01-12] MEDS ORDERED: EPINEPHrine/PF 1 MG/1 ML (1:1,000) AMPULE ONE (22:38)
[2023-01-12] MEDS ORDERED: methylPREDNISolone NA SUCC 125 MG/2 ML VIAL ONE (22:57)
[2023-01-12] MEDS ORDERED: methylPREDNISolone NA SUCC 125 MG/2 ML VIAL IVPB ONE (22:57)
[2023-01-12] MEDS ORDERED: EPINEPHrine 1:1,000 1,000 MCG/ML ML SQ ONE (22:57)
[2023-01-12 23:01] LABS: BASO % 0.7 % (0-2.0); HEMATOCRIT 37.4 % (32.4-45.2); HEMOGLOBIN 12.6 GM/dL (10.7-15.3); MCH 28.2 pg (25.7-33.7); MCHC 33.7 g/dl (32.0-36.0); MEAN CELL VOLUME 83.8 fl (80-96); MEAN PLT VOLUME 8.3 fl (7.5-11.1); MONO % 4.1 % (3.8-10.2); NEUT % 62.2 % (42.8-82.8); PLATELET COUNT 281 10^3/uL (134-434); RBC 4.47 M/mm3 (3.60-5.2); RDW 14.8 % (11.6-15.6); WHITE BLOOD COUNT 14.5 K/mm3 (4.0-10.0)
[2023-01-12 23:07] LABS: INR 0.97 (0.83-1.09); PROTHROMBIN TIME (PATIENT) 11.2 SEC (9.7-13.0)
[2023-01-12 23:24] VITALS: BP 163/67; PULSE 73; RESP 22
[2023-01-12 23:25] LABS: ALBUMIN 3.2 g/dl (3.4-5.0); CALCIUM 8.3 mg/dL (8.5-10.1)
[2023-01-12 23:26] LABS: BLOOD UREA NITROGEN 23.4 mg/dL (7-18)
[2023-01-12 23:29] LABS: CREATININE 0.9 mg/dL (0.55-1.3)
[2023-01-12 23:30] LABS: BILIRUBIN,TOTAL 0.4 mg/dL (0.2-1); TOT PROT 6.9 g/dl (6.4-8.2)
[2023-01-13 00:34] LABS: CALCIUM 8.6 mg/dL (8.5-10.1)
[2023-01-13 00:35] LABS: BLOOD UREA NITROGEN 23.2 mg/dL (7-18)
[2023-01-13 00:38] LABS: CREATININE 0.9 mg/dL (0.55-1.3)
== END 2023-01-13 00:51 | disposition home or self-care (01) ==
LOC: JER 22:24
PROC: 3E033GC Introduction of Other Therapeutic Substance into Peripheral Vein, Percutaneous Approach (ICD-10-PCS; principal; 2023-01-12)
PROC: 3E023GC Introduction of Other Therapeutic Substance into Muscle, Percutaneous Approach (ICD-10-PCS; principal; 2023-01-12)
DX: T78.40XA Allergy, unspecified, initial encounter (principal)
CPT/HCPCS: 36415; 80048; 80053; 82962; 84484; 85025; 85610; 93005; 93010; 99284-25

== ENCOUNTER 2023-01-16 22:26 | Emergency (ER) | payer OTHER ==
[2023-01-16 22:35] VITALS: BP 130/71; PULSE 73; RESP 18; TEMP 97.6; BMI 36.6
[2023-01-17] MEDS ORDERED: MECLIZINE HCL 25 MG TABLET (FP) PO ONE (05:37)
[2023-01-17] MEDS ORDERED: MECLIZINE HCL 25 MG TABLET (FP) ONE (06:22)
== END 2023-01-17 06:43 | disposition left against medical advice (07) ==
LOC: JER 22:26
DX: R42 Dizziness and giddiness (principal)
CPT/HCPCS: 93005; 93010; 99283-25

== ENCOUNTER 2023-04-28 20:44 | Emergency (ER) | payer OTHER ==
[2023-04-28 20:51] VITALS: BMI 32.1
[2023-04-28] MEDS ORDERED: SODIUM CHLORIDE 0.9% 500 ML INFUS.BAG IV ONE ×2 (21:16→23:13)
[2023-04-28 22:46] LABS: VENOUS BASE EXCESS -3.2 mmol/L (-2-2); VENOUS O2 SATURATION 76.8 % (70-80); VENOUS PCO2 49.7 mmHg (38-52); VENOUS PH 7.296 (7.310-7.410)
[2023-04-28 22:51] LABS: BASO % 0.7 % (0-2.0); EOS % 4.3 % (0-4.5); HEMATOCRIT 38.5 % (32.4-45.2); LYMPH % 38.2 % (8-40); MCH 27.5 pg (25.7-33.7); MCHC 33.7 g/dl (32.0-36.0); MEAN CELL VOLUME 81.8 fl (80-96); MONO % 7.7 % (3.8-10.2); NEUT % 49.1 % (42.8-82.8); PLATELET COUNT 221 10^3/uL (134-434); RDW 13.3 % (11.6-15.6); WHITE BLOOD COUNT 7.2 K/mm3 (4.0-10.0)
[2023-04-28 22:57] LABS: PH,URINE 5.5 (5.0-8.0); URINE APPEARANCE CLEAR; URINE BILIRUBIN NEGATIVE (NEGATIVE); URINE COLOR YELLOW; URINE GLUCOSE (UA) 3+ (NEGATIVE); URINE KETONE NEGATIVE (NEGATIVE); URINE LEUK ESTERASE NEGATIVE (NEGATIVE); URINE NITRITE NEGATIVE (NEGATIVE); URINE PROTEIN NEGATIVE (NEGATIVE); URINE UROBILINOGEN 0.2 mg/dL (0.2-1.0)
[2023-04-28 23:16] LABS: CHLORIDE 97 mmol/L (98-107); SODIUM 132 mmol/L (136-145)
[2023-04-28 23:18] LABS: BLOOD UREA NITROGEN 22.4 mg/dL (7-18); CALCIUM 9.5 mg/dL (8.5-10.1)
[2023-04-28 23:19] LABS: ALBUMIN 3.5 g/dl (3.4-5.0); ANION GAP 8 MMOL/L (8-16); CO2 27 mmol/L (21-32); MAGNESIUM 1.7 mg/dL (1.8-2.4)
[2023-04-28 23:21] LABS: SGPT/ALT 29 U/L (13-61)
[2023-04-28 23:22] LABS: CREATININE 1.1 mg/dL (0.55-1.3); SGOT/AST 13 U/L (15-37)
[2023-04-28 23:23] LABS: BILIRUBIN,TOTAL 0.4 mg/dL (0.2-1); TOT PROT 7.1 g/dl (6.4-8.2)
[2023-04-28 23:24] LABS: ALK PHOS 112 U/L (45-117)
[2023-04-28] MEDS ORDERED: INSULIN REGULAR HUMAN 100 UNITS/ML *VIAL SQ STA (23:30)
[2023-04-29 00:01] LABS: GLUCOSE,RANDOM 532 mg/dL (74-106)
[2023-04-29] MEDS ORDERED: INSULIN REGULAR HUMAN 100 UNITS/ML *VIAL SQ ONE (00:37)
[2023-04-29 00:57] VITALS: BP 150/80; PULSE 71; RESP 15; TEMP 97.6
== END 2023-04-29 01:41 | disposition home or self-care (01) ==
LOC: JER 20:44
PROC: 3E013VG Introduction of Insulin into Subcutaneous Tissue, Percutaneous Approach (ICD-10-PCS; principal; 2023-04-28)
PROC: 3E013VG Introduction of Insulin into Subcutaneous Tissue, Percutaneous Approach (ICD-10-PCS; 2023-04-28)
DX: R73.9 Hyperglycemia, unspecified (principal); Z20.822 Contact with and (suspected) exposure to COVID-19
CPT/HCPCS: 0241U-QW; 36415; 80053; 81003; 82010; 82803; 82962; 83605; 83735; 85025; 87086; 99284-25

== ENCOUNTER 2023-05-02 03:13 | Observation (INO) | payer OTHER ==
[2023-05-02 03:21] VITALS: BMI 32.1
[2023-05-02] MEDS ORDERED: morphine SULFATE 4 MG/ML VIAL IVPUSH ONE (03:39)
[2023-05-02] MEDS ORDERED: SODIUM CHLORIDE 500 ML IV STA (03:39)
[2023-05-02] MEDS ORDERED: ONDANSETRON 4 MG/2 ML VIAL IVPUSH ONE (03:39)
[2023-05-02] MEDS ORDERED: FAMOTIDINE 20 MG/50 ML IVPB 20 MG/50 ML MG IVPB ONE (03:39)
[2023-05-02] MEDS ORDERED: ONDANSETRON 4 MG/2 ML VIAL ONE ×2 (03:43→09:30)
[2023-05-02] MEDS ORDERED: FAMOTIDINE 10 MG/ML VIAL IVPB ONE (03:43)
[2023-05-02] MEDS ORDERED: morphine SULFATE 4 MG/ML VIAL ONE (03:43)
[2023-05-02 04:47] LABS: URINE APPEARANCE CLEAR; URINE BILIRUBIN NEGATIVE (NEGATIVE); URINE COLOR YELLOW; URINE GLUCOSE (UA) 1+ (NEGATIVE); URINE KETONE NEGATIVE (NEGATIVE); URINE LEUK ESTERASE NEGATIVE (NEGATIVE); URINE NITRITE NEGATIVE (NEGATIVE); URINE PROTEIN NEGATIVE (NEGATIVE); URINE UROBILINOGEN 0.2 mg/dL (0.2-1.0)
[2023-05-02 05:05] LABS: POTASSIUM 3.8 mmol/L (3.5-5.1)
[2023-05-02 05:06] LABS: INR 0.95 (0.83-1.09)
[2023-05-02 05:08] LABS: ACTIVATED PTT 33.4 SECONDS (25.2-36.5); ALBUMIN 3.4 g/dl (3.4-5.0); CALCIUM 8.9 mg/dL (8.5-10.1); MAGNESIUM 1.6 mg/dL (1.8-2.4)
[2023-05-02 05:11] LABS: CREATININE 0.7 mg/dL (0.55-1.3)
[2023-05-02 05:13] LABS: BILIRUBIN,TOTAL 0.3 mg/dL (0.2-1); TOT PROT 7.2 g/dl (6.4-8.2)
[2023-05-02 05:16] LABS: N-TERMINAL BNP 55.4 pg/ml (5-125)
[2023-05-02 05:25] LABS: BASO % 0.6 % (0-2.0); EOS % 1.1 % (0-4.5); HEMATOCRIT 38.6 % (32.4-45.2); HEMOGLOBIN 13.1 GM/dL (10.7-15.3); LYMPH % 14.6 % (8-40); MCH 27.8 pg (25.7-33.7); MCHC 33.9 g/dl (32.0-36.0); MEAN PLT VOLUME 10.2 fl (7.5-11.1); MONO % 4.2 % (3.8-10.2); NEUT % 79.5 % (42.8-82.8); PLATELET COUNT 216 10^3/uL (134-434); RDW 13.2 % (11.6-15.6); WHITE BLOOD COUNT 11.4 K/mm3 (4.0-10.0)
[2023-05-02] MEDS ORDERED: MAGNESIUM SULF 50% (8.12 MEQ/2 ML-1 GM VIAL) IVPB ONE (06:25)
[2023-05-02] MEDS ORDERED: MAGNESIUM 1GM/D5W - 1 GM/100 ML IVPB IVPB ONE (06:26)
[2023-05-02] MEDS ORDERED: ONDANSETRON 4 MG/2 ML VIAL IVPB ONE (09:29)
[2023-05-02] MEDS ORDERED: ASPIRIN 325 MG TABLET PO ONE (09:49)
[2023-05-02] MEDS ORDERED: ASPIRIN 81 MG CHEWABLE TABLETS ONE (09:51)
[2023-05-02] MEDS ORDERED: ACETAMINOPHEN 1000 MG/100 ML BAG IVPB PRN (11:03)
[2023-05-02] MEDS ORDERED: ONDANSETRON 4 MG/2 ML VIAL IVPB PRN (11:03)
[2023-05-02] MEDS ORDERED: diphenhydrAMINE HCL 25 MG CAPSULE (FP) PO PRN (11:11)
[2023-05-02] MEDS ORDERED: SODIUM CHLORIDE 1,000 ML IV SCH (11:15)
[2023-05-02] MEDS ORDERED: PANTOPRAZOLE SODIUM 40 MG VIAL ONE (12:15)
[2023-05-02] MEDS: PANTOPRAZOLE SODIUM 40 MG VIAL IVPUSH SCH (12:53)
[2023-05-02] MEDS ORDERED: ALBUTEROL SO4 HFA INHALER IH PRN (13:50)
[2023-05-02] MEDS: GABAPENTIN 300 MG CAPSULE PO SCH ×2 (14:56→21:49)
[2023-05-02] MEDS: POLYETHYLENE GLYCOL (HEALTHYLAX) 3350 17 GM PACKET PO SCH ×2 (14:56→21:49)
[2023-05-02] MEDS ORDERED: MAGNESIUM 1GM/D5W 100ML - 100 ML IVPB IVPB ONE (16:30)
[2023-05-02] MEDS: INSULIN SLIDING SCALE (NOVOLOG) 1 VIAL SQ SCH ×2 (17:16→21:49)
[2023-05-02] MEDS: POTASSIUM CHLORIDE 10 MEQ in SODIUM CHLORIDE 0.45% 1,000 ML IVPB SCH (17:45)
[2023-05-02] MEDS: QUEtiapine FUMARATE 25 MG TABLET PO SCH (21:48)
[2023-05-02] MEDS: ROSUVASTATIN CA 20 MG TABLET PO SCH (21:48)
[2023-05-02] MEDS ORDERED: SENNOSIDES 8.6MG TABLET (FP) PO SCH (22:00)
[2023-05-02] MEDS: INSULIN (LEVEMIR) 100 UNITS/ML UNITS SQ SCH (22:32)
[2023-05-02] MEDS: BUDESONIDE/FORMETEROL FUMARATE 160/4.5 mcg INHALER IH SCH (22:38)
[2023-05-03] MEDS: GABAPENTIN 300 MG CAPSULE PO SCH ×3 (05:53→21:49)
[2023-05-03] MEDS: POLYETHYLENE GLYCOL (HEALTHYLAX) 3350 17 GM PACKET PO SCH ×3 (05:53→21:49)
[2023-05-03] MEDS: POTASSIUM CHLORIDE 10 MEQ in SODIUM CHLORIDE 0.45% 1,000 ML IVPB SCH ×4 (06:23→22:04)
[2023-05-03] MEDS: INSULIN SLIDING SCALE (NOVOLOG) 1 VIAL SQ SCH ×4 (06:28→21:52)
[2023-05-03 07:50] LABS: BASO % 0.6 % (0-2.0); EOS % 5.9 % (0-4.5); HEMATOCRIT 34.6 % (32.4-45.2); HEMOGLOBIN 11.9 GM/dL (10.7-15.3); LYMPH % 39.2 % (8-40); MCH 28.4 pg (25.7-33.7); MCHC 34.5 g/dl (32.0-36.0); MEAN CELL VOLUME 82.1 fl (80-96); MEAN PLT VOLUME 9.2 fl (7.5-11.1); MONO % 8.8 % (3.8-10.2); NEUT % 45.5 % (42.8-82.8); PLATELET COUNT 215 10^3/uL (134-434); RBC 4.21 M/mm3 (3.60-5.2); RDW 13.3 % (11.6-15.6); WHITE BLOOD COUNT 5.8 K/mm3 (4.0-10.0)
[2023-05-03 08:08] LABS: POTASSIUM 4.1 mmol/L (3.5-5.1)
[2023-05-03 08:10] LABS: BLOOD UREA NITROGEN 11.8 mg/dL (7-18)
[2023-05-03 08:16] LABS: CREATININE 0.7 mg/dL (0.55-1.3)
[2023-05-03] MEDS ORDERED: predniSONE 10 MG TABLET (UD) PO SCH (10:00)
[2023-05-03] MEDS: ENALAPRIL MALEATE 10 MG TABLET PO SCH (10:09)
[2023-05-03] MEDS: amLODIPine BESYLATE 5 MG TABLET (FP) PO SCH (10:09)
[2023-05-03] MEDS: SERTRALINE HCL 50 MG TABLET (FP) PO SCH (10:09)
[2023-05-03] MEDS: PANTOPRAZOLE SODIUM 40 MG VIAL IVPUSH SCH (10:09)
[2023-05-03] MEDS: BUDESONIDE/FORMETEROL FUMARATE 160/4.5 mcg INHALER IH SCH ×2 (10:49→21:58)
[2023-05-03] MEDS: QUEtiapine FUMARATE 25 MG TABLET PO SCH (21:48)
[2023-05-03] MEDS: INSULIN (LEVEMIR) 100 UNITS/ML UNITS SQ SCH (21:49)
[2023-05-03] MEDS: ROSUVASTATIN CA 20 MG TABLET PO SCH (21:49)
[2023-05-04 02:49] LABS: HEMATOCRIT 36.2 % (32.4-45.2); HEMOGLOBIN 12.2 GM/dL (10.7-15.3); MCH 27.9 pg (25.7-33.7); MCHC 33.8 g/dl (32.0-36.0); MEAN CELL VOLUME 82.6 fl (80-96); MEAN PLT VOLUME 8.6 fl (7.5-11.1); PLATELET COUNT 254 10^3/uL (134-434); RBC 4.39 M/mm3 (3.60-5.2); RDW 13.4 % (11.6-15.6)
[2023-05-04 02:56] LABS: INR 1.02 (0.83-1.09); PROTHROMBIN TIME (PATIENT) 11.8 SEC (9.7-13.0)
[2023-05-04 02:58] LABS: ACTIVATED PTT 31.5 SECONDS (25.2-36.5)
[2023-05-04] MEDS ORDERED: levETIRAcetam 500 MG/5 ML INJECTION VIAL IVPB ONE (03:02)
[2023-05-04 03:10] LABS: CALCIUM 9.1 mg/dL (8.5-10.1)
[2023-05-04 03:11] LABS: ALBUMIN 3.3 g/dl (3.4-5.0); BLOOD UREA NITROGEN 10.3 mg/dL (7-18)
[2023-05-04 03:14] LABS: CREATININE 0.9 mg/dL (0.55-1.3); PHOSPHOROUS 4.1 mg/dL (2.5-4.9)
[2023-05-04 03:15] LABS: TOT PROT 6.8 g/dl (6.4-8.2)
[2023-05-04 03:16] LABS: BILIRUBIN,TOTAL 0.5 mg/dL (0.2-1)
[2023-05-04] MEDS: POTASSIUM CHLORIDE 10 MEQ in SODIUM CHLORIDE 0.45% 1,000 ML IVPB SCH ×3 (05:35→16:19)
[2023-05-04] MEDS: POLYETHYLENE GLYCOL (HEALTHYLAX) 3350 17 GM PACKET PO SCH ×3 (05:38→21:23)
[2023-05-04] MEDS: GABAPENTIN 300 MG CAPSULE PO SCH ×3 (05:38→21:22)
[2023-05-04] MEDS: INSULIN SLIDING SCALE (NOVOLOG) 1 VIAL SQ SCH ×4 (06:12→21:27)
[2023-05-04] MEDS: ENALAPRIL MALEATE 10 MG TABLET PO SCH (09:34)
[2023-05-04] MEDS: SERTRALINE HCL 50 MG TABLET (FP) PO SCH (09:34)
[2023-05-04] MEDS: amLODIPine BESYLATE 5 MG TABLET (FP) PO SCH (09:35)
[2023-05-04] MEDS: PANTOPRAZOLE SODIUM 40 MG VIAL IVPUSH SCH (09:35)
[2023-05-04] MEDS: BUDESONIDE/FORMETEROL FUMARATE 160/4.5 mcg INHALER IH SCH ×2 (09:35→21:23)
[2023-05-04] MEDS: QUEtiapine FUMARATE 25 MG TABLET PO SCH (21:22)
[2023-05-04] MEDS: ROSUVASTATIN CA 20 MG TABLET PO SCH (21:22)
[2023-05-04] MEDS: INSULIN (LEVEMIR) 100 UNITS/ML UNITS SQ SCH (21:29)
[2023-05-05] MEDS: KETOROLAC TROMETHAMINE 30 MG/1 ML VIAL IVPUSH PRN (00:01)
[2023-05-05] MEDS: POTASSIUM CHLORIDE 10 MEQ in SODIUM CHLORIDE 0.45% 1,000 ML IVPB SCH ×3 (02:49→17:31)
[2023-05-05] MEDS: POLYETHYLENE GLYCOL (HEALTHYLAX) 3350 17 GM PACKET PO SCH ×3 (05:07→22:40)
[2023-05-05] MEDS: INSULIN SLIDING SCALE (NOVOLOG) 1 VIAL SQ SCH ×5 (06:13→22:39)
[2023-05-05] MEDS: GABAPENTIN 300 MG CAPSULE PO SCH ×3 (06:13→22:41)
[2023-05-05] MEDS: ENALAPRIL MALEATE 10 MG TABLET PO SCH (10:43)
[2023-05-05] MEDS: amLODIPine BESYLATE 5 MG TABLET (FP) PO SCH (10:43)
[2023-05-05] MEDS: SERTRALINE HCL 50 MG TABLET (FP) PO SCH (10:44)
[2023-05-05] MEDS: BUDESONIDE/FORMETEROL FUMARATE 160/4.5 mcg INHALER IH SCH ×2 (10:45→22:41)
[2023-05-05] MEDS: PANTOPRAZOLE SODIUM 40 MG VIAL IVPUSH SCH (11:01)
[2023-05-05] MEDS ORDERED: BISACODYL 5 MG TABLET.DR (FP) PO ONE (16:00)
[2023-05-05] MEDS ORDERED: PEG 3350/NA SULF BICARB CL/KCL 4000 ML SOLN.RECON PO ONE (17:00)
[2023-05-05] MEDS: ROSUVASTATIN CA 20 MG TABLET PO SCH (22:36)
[2023-05-05] MEDS: QUEtiapine FUMARATE 25 MG TABLET PO SCH (22:36)
[2023-05-05] MEDS: INSULIN (LEVEMIR) 100 UNITS/ML UNITS SQ SCH (22:40)
[2023-05-05] MEDS ORDERED: PROCHLORPERAZINE MALEATE 5 MG TABLET PO ONE (23:55)
[2023-05-06] MEDS: KETOROLAC TROMETHAMINE 30 MG/1 ML VIAL IVPUSH PRN (00:05)
[2023-05-06] MEDS ORDERED: ONDANSETRON 4 MG/2 ML VIAL IVPUSH ONE (03:30)
[2023-05-06] MEDS: POLYETHYLENE GLYCOL (HEALTHYLAX) 3350 17 GM PACKET PO SCH ×3 (05:49→22:09)
[2023-05-06] MEDS: GABAPENTIN 300 MG CAPSULE PO SCH ×3 (07:22→21:53)
[2023-05-06] MEDS: POTASSIUM CHLORIDE 10 MEQ in SODIUM CHLORIDE 0.45% 1,000 ML IVPB SCH ×2 (07:22→17:05)
[2023-05-06] MEDS: INSULIN SLIDING SCALE (NOVOLOG) 1 VIAL SQ SCH ×4 (07:22→21:50)
[2023-05-06] MEDS: PANTOPRAZOLE SODIUM 40 MG VIAL IVPUSH SCH (09:42)
[2023-05-06] MEDS: SERTRALINE HCL 50 MG TABLET (FP) PO SCH (09:42)
[2023-05-06] MEDS: amLODIPine BESYLATE 5 MG TABLET (FP) PO SCH (09:42)
[2023-05-06] MEDS: ENALAPRIL MALEATE 10 MG TABLET PO SCH (09:43)
[2023-05-06] MEDS: BUDESONIDE/FORMETEROL FUMARATE 160/4.5 mcg INHALER IH SCH ×2 (09:44→22:10)
[2023-05-06 10:52] LABS: INR 0.99 (0.83-1.09); PROTHROMBIN TIME (PATIENT) 11.5 SEC (9.7-13.0)
[2023-05-06 11:00] LABS: BASO % 0.8 % (0-2.0); EOS % 3.1 % (0-4.5); LYMPH % 22.5 % (8-40); MCHC 34.1 g/dl (32.0-36.0); MEAN CELL VOLUME 82.3 fl (80-96); MEAN PLT VOLUME 8.6 fl (7.5-11.1); MONO % 6.5 % (3.8-10.2); NEUT % 67.1 % (42.8-82.8); PLATELET COUNT 254 10^3/uL (134-434); RBC 4.99 M/mm3 (3.60-5.2); RDW 13.5 % (11.6-15.6); WHITE BLOOD COUNT 9.1 K/mm3 (4.0-10.0)
[2023-05-06 11:23] LABS: POTASSIUM 3.8 mmol/L (3.5-5.1)
[2023-05-06 11:30] LABS: CALCIUM 9.2 mg/dL (8.5-10.1)
[2023-05-06 11:31] LABS: BLOOD UREA NITROGEN 12.2 mg/dL (7-18)
[2023-05-06 11:34] LABS: CREATININE 0.8 mg/dL (0.55-1.3)
[2023-05-06] MEDS: INSULIN (LEVEMIR) 100 UNITS/ML UNITS SQ SCH (21:49)
[2023-05-06] MEDS: ROSUVASTATIN CA 20 MG TABLET PO SCH (21:53)
[2023-05-06] MEDS: QUEtiapine FUMARATE 25 MG TABLET PO SCH (21:53)
[2023-05-07] MEDS: POTASSIUM CHLORIDE 10 MEQ in SODIUM CHLORIDE 0.45% 1,000 ML IVPB SCH ×2 (03:32→06:35)
[2023-05-07] MEDS: GABAPENTIN 300 MG CAPSULE PO SCH (06:37)
[2023-05-07] MEDS: INSULIN SLIDING SCALE (NOVOLOG) 1 VIAL SQ SCH ×2 (06:37→12:23)
[2023-05-07] MEDS: POLYETHYLENE GLYCOL (HEALTHYLAX) 3350 17 GM PACKET PO SCH (06:37)
[2023-05-07 07:18] VITALS: PULSE 68
[2023-05-07] MEDS: PANTOPRAZOLE SODIUM 40 MG VIAL IVPUSH SCH (09:28)
[2023-05-07] MEDS: SERTRALINE HCL 50 MG TABLET (FP) PO SCH (09:29)
[2023-05-07] MEDS: amLODIPine BESYLATE 5 MG TABLET (FP) PO SCH (09:29)
[2023-05-07] MEDS: ENALAPRIL MALEATE 10 MG TABLET PO SCH (09:29)
[2023-05-07] MEDS: BUDESONIDE/FORMETEROL FUMARATE 160/4.5 mcg INHALER IH SCH (09:30)
[2023-05-07] MEDS ORDERED: PANTOPRAZOLE 40 MG TABLET PO SCH (10:30)
[2023-05-07 12:32] VITALS: BP 151/85; RESP 16; TEMP 98.9
== END 2023-05-07 13:04 | disposition home or self-care (01) ==
LOC: JER 03:13 → JERBED 11:04 → UNDOADMOB 11:04 → INTOOBSV 11:04 → J5S 14:24 → JERBED 14:24 → J5S 15:47 → JERBED 15:47
PROVIDERS: ADMIT Family Medicine; ATTEND Family Medicine
PROC: 0DBP8ZX Excision of Rectum, Via Natural or Artificial Opening Endoscopic, Diagnostic (ICD-10-PCS; principal; 2023-05-02)
PROC: 0DBL8ZX Excision of Transverse Colon, Via Natural or Artificial Opening Endoscopic, Diagnostic (ICD-10-PCS; 2023-05-02)
PROC: 0DBN8ZX Excision of Sigmoid Colon, Via Natural or Artificial Opening Endoscopic, Diagnostic (ICD-10-PCS; 2023-05-02)
PROC: 0DB98ZX Excision of Duodenum, Via Natural or Artificial Opening Endoscopic, Diagnostic (ICD-10-PCS; 2023-05-02)
PROC: 0DB68ZX Excision of Stomach, Via Natural or Artificial Opening Endoscopic, Diagnostic (ICD-10-PCS; 2023-05-02)
PROC: 3E033GC Introduction of Other Therapeutic Substance into Peripheral Vein, Percutaneous Approach (ICD-10-PCS; 2023-05-02)
PROC: 3E033NZ Introduction of Analgesics, Hypnotics, Sedatives into Peripheral Vein, Percutaneous Approach (ICD-10-PCS; 2023-05-02)
PROC: 3E0337Z Introduction of Electrolytic and Water Balance Substance into Peripheral Vein, Percutaneous Approach (ICD-10-PCS; 2023-05-02)
PROC: 3E0333Z Introduction of Anti-inflammatory into Peripheral Vein, Percutaneous Approach (ICD-10-PCS; 2023-05-02)
PROC: 3E013VG Introduction of Insulin into Subcutaneous Tissue, Percutaneous Approach (ICD-10-PCS; 2023-05-02)
DX: R10.9 Unspecified abdominal pain (principal); R11.10 Vomiting, unspecified; R93.3 Abnormal findings on diagnostic imaging of other parts of digestive tract; K31.84 Gastroparesis; E78.5 Hyperlipidemia, unspecified; D12.3 Benign neoplasm of transverse colon; K31.89 Other diseases of stomach and duodenum; K29.50 Unspecified chronic gastritis without bleeding; K52.9 Noninfective gastroenteritis and colitis, unspecified; R42 Dizziness and giddiness; J92.9 Pleural plaque without asbestos; R06.02 Shortness of breath; E86.0 Dehydration; I10 Essential (primary) hypertension; I25.10 Atherosclerotic heart disease of native coronary artery without angina pectoris; I25.2 Old myocardial infarction; E11.43 Type 2 diabetes mellitus with diabetic autonomic (poly)neuropathy; M54.89 Other dorsalgia; E11.65 Type 2 diabetes mellitus with hyperglycemia; G62.9 Polyneuropathy, unspecified; E11.40 Type 2 diabetes mellitus with diabetic neuropathy, unspecified; F32.A Depression, unspecified; I69.354 Hemiplegia and hemiparesis following cerebral infarction affecting left non-dominant side; K31.7 Polyp of stomach and duodenum; E66.9 Obesity, unspecified; M54.16 Radiculopathy, lumbar region; R53.83 Other fatigue; R19.7 Diarrhea, unspecified; Z68.32 Body mass index [BMI] 32.0-32.9, adult; Z79.4 Long term (current) use of insulin; Z80.0 Family history of malignant neoplasm of digestive organs; Z98.61 Coronary angioplasty status; Z88.5 Allergy status to narcotic agent; Z88.8 Allergy status to other drugs, medicaments and biological substances; K63.3 Ulcer of intestine; K62.6 Ulcer of anus and rectum; K64.8 Other hemorrhoids
CPT/HCPCS: 0241U-QW; 36415; 70450-TC; 70496-TC; 70498-TC; 71045-TC-FY; 74177-TC; 80048; 80053; 80164; 81003; 82550; 82553; 82962; 83605; 83690; 83735; 83880; 84100; 84484; 85025; 85027; 85610; 85730; 86850; 86900; 86901; 88305-TC; 93005; 93010; 96365; 96372; 96375; 96376; 99285-25; G0378; Q9967

== ENCOUNTER 2023-05-11 21:19 | Emergency (ER) | payer OTHER ==
[2023-05-11 21:34] VITALS: BP 162/70; PULSE 89; RESP 18; TEMP 98.8; BMI 32.1
[2023-05-11] MEDS ORDERED: KETOROLAC TROMETHAMINE 30 MG/1 ML VIAL IM ONE (22:26)
[2023-05-11] MEDS ORDERED: LORATADINE 10 MG TABLET PO ONE (22:27)
[2023-05-11] MEDS ORDERED: LORATADINE 10 MG TABLET ONE (23:11)
[2023-05-11] MEDS ORDERED: KETOROLAC TROMETHAMINE 30 MG/1 ML VIAL ONE (23:11)
== END 2023-05-11 23:43 | disposition home or self-care (01) ==
LOC: JER 21:19
PROC: 2W3DX1Z Immobilization of Left Lower Arm using Splint (ICD-10-PCS; principal; 2023-05-11)
PROC: 3E0233Z Introduction of Anti-inflammatory into Muscle, Percutaneous Approach (ICD-10-PCS; 2023-05-11)
DX: M25.532 Pain in left wrist (principal); R22.32 Localized swelling, mass and lump, left upper limb; S69.92XA Unspecified injury of left wrist, hand and finger(s), initial encounter; H10.13 Acute atopic conjunctivitis, bilateral; W01.0XXA Fall on same level from slipping, tripping and stumbling without subsequent striking against object, initial encounter; Y92.410 Unspecified street and highway as the place of occurrence of the external cause
CPT/HCPCS: 73110-TC-LT-FY; 73130-TC-LT-FY; 99284-25

== ENCOUNTER 2023-06-24 22:43 | Emergency (ER) | payer OTHER ==
[2023-06-24 23:12] VITALS: BP 136/82; PULSE 84; RESP 18; TEMP 98.3; BMI 32.1
[2023-06-24 23:36] LABS: EPI CELLS 27 /uL (0-25.1); HYALINE CASTS 1 /uL (0-3.1); URINE APPEARANCE CLEAR; URINE BACTERIA 4321 /uL (0-1359); URINE BILIRUBIN NEGATIVE (NEGATIVE); URINE COLOR YELLOW; URINE GLUCOSE (UA) 3+ (NEGATIVE); URINE KETONE NEGATIVE (NEGATIVE); URINE LEUK ESTERASE NEGATIVE (NEGATIVE); URINE NITRITE POSITIVE (NEGATIVE); URINE PROTEIN NEGATIVE (NEGATIVE); URINE RBC 18 /uL (0-23.9); URINE UROBILINOGEN 0.2 mg/dL (0.2-1.0)
[2023-06-25] MEDS ORDERED: CEFTRIAXONE 1 GM in DEXTROSE 5%-WATER - 100 ML IVPB ONE (03:03)
[2023-06-25 03:40] LABS: INR 0.94 (0.83-1.09); PROTHROMBIN TIME (PATIENT) 10.9 SEC (9.7-13.0)
[2023-06-25 03:43] LABS: ACTIVATED PTT 30.8 SECONDS (25.2-36.5)
[2023-06-25 03:45] LABS: EOS % 6.4 % (0-4.5); HEMATOCRIT 33.7 % (32.4-45.2); HEMOGLOBIN 11.6 GM/dL (10.7-15.3); LYMPH % 40.7 % (8-40); MCH 27.8 pg (25.7-33.7); MCHC 34.3 g/dl (32.0-36.0); MEAN PLT VOLUME 8.8 fl (7.5-11.1); MONO % 8.2 % (3.8-10.2); NEUT % 43.7 % (42.8-82.8); PLATELET COUNT 198 10^3/uL (134-434); RBC 4.16 M/mm3 (3.60-5.2); RDW 14.2 % (11.6-15.6)
[2023-06-25] MEDS ORDERED: CEFTRIAXONE 1 GM/50 ML BAG ONE (03:48)
[2023-06-25 03:55] LABS: POTASSIUM 3.9 mmol/L (3.5-5.1)
[2023-06-25 03:57] LABS: CALCIUM 8.4 mg/dL (8.5-10.1)
[2023-06-25 03:58] LABS: ALBUMIN 3.2 g/dl (3.4-5.0); BLOOD UREA NITROGEN 14.9 mg/dL (7-18)
[2023-06-25 04:01] LABS: CREATININE 0.9 mg/dL (0.55-1.3)
[2023-06-25 04:02] LABS: BILIRUBIN,TOTAL 0.2 mg/dL (0.2-1); TOT PROT 6.7 g/dl (6.4-8.2)
[2023-06-25] MEDS ORDERED: SODIUM CHLORIDE 0.9% 500 ML INFUS.BAG IV ONE (04:16)
[2023-06-25 07:23] LABS: URINE WBC 73.2 /uL (0-25.8)
== END 2023-06-25 06:59 | disposition home or self-care (01) ==
LOC: JER 22:43
DX: R10.31 Right lower quadrant pain (principal); R11.2 Nausea with vomiting, unspecified; R63.0 Anorexia; R10.13 Epigastric pain; E11.65 Type 2 diabetes mellitus with hyperglycemia; N30.00 Acute cystitis without hematuria; K59.00 Constipation, unspecified
CPT/HCPCS: 36415; 74177-TC; 80053; 81003; 83690; 83735; 85025; 85610; 85730; 87086; 87186; 99285-25; Q9967

== ENCOUNTER 2023-08-13 20:10 | Emergency (ER) | payer OTHER ==
[2023-08-13 20:16] VITALS: BP 156/89; PULSE 92; RESP 16; TEMP 98.1; BMI 31.1
[2023-08-13] MEDS ORDERED: FLUCONAZOLE 150 MG TABLET PO ONE ×2 (22:39→22:47)
[2023-08-13] MEDS ORDERED: CEPHALEXIN MONOHYDRATE 500 MG CAPSULE (UD) PO ONE (22:40)
[2023-08-13] MEDS ORDERED: CEPHALEXIN MONOHYDRATE 500 MG CAPSULE (UD) ONE (22:47)
== END 2023-08-13 23:24 | disposition home or self-care (01) ==
LOC: JER 20:10 → JERFT 20:10
DX: L02.31 Cutaneous abscess of buttock (principal); B37.31 Acute candidiasis of vulva and vagina; L29.9 Pruritus, unspecified
CPT/HCPCS: 82962; 99283-25

== ENCOUNTER 2023-09-07 00:29 | Emergency (ER) | payer OTHER ==
[2023-09-07 00:39] VITALS: RESP 18; BMI 34.0
[2023-09-07] MEDS ORDERED: ACETAMINOPHEN 1000 MG/100 ML BAG IVPB ONE (01:06)
[2023-09-07] MEDS ORDERED: ACETAMINOPHEN INJECTION 100 ML IVPB ONE (01:17)
[2023-09-07 02:10] LABS: INR 0.81 (0.83-1.09); PROTHROMBIN TIME (PATIENT) 9.4 SEC (9.7-13.0)
[2023-09-07 02:12] LABS: BASO % 1.1 % (0-2.0); EOS % 3.7 % (0-4.5); HEMATOCRIT 35.1 % (32.4-45.2); HEMOGLOBIN 11.8 GM/dL (10.7-15.3); LYMPH % 33.9 % (8-40); MCH 28.6 pg (25.7-33.7); MCHC 33.7 g/dl (32.0-36.0); MEAN CELL VOLUME 84.8 fl (80-96); MEAN PLT VOLUME 9.2 fl (7.5-11.1); MONO % 6.5 % (3.8-10.2); NEUT % 54.8 % (42.8-82.8); PLATELET COUNT 208 10^3/uL (134-434); RBC 4.14 M/mm3 (3.60-5.2); RDW 13.1 % (11.6-15.6); WHITE BLOOD COUNT 8.1 K/mm3 (4.0-10.0)
[2023-09-07 02:13] LABS: ACTIVATED PTT 28.6 SECONDS (25.2-36.5)
[2023-09-07 02:20] LABS: CHLORIDE 89 mmol/L (98-107); POTASSIUM 4.3 mmol/L (3.5-5.1); SODIUM 126 mmol/L (136-145)
[2023-09-07 02:22] LABS: CALCIUM 8.8 mg/dL (8.5-10.1)
[2023-09-07 02:23] LABS: ALBUMIN 3.4 g/dl (3.4-5.0); ANION GAP 9 MMOL/L (8-16); BLOOD UREA NITROGEN 29.2 mg/dL (7-18); CO2 27 mmol/L (21-32)
[2023-09-07 02:26] LABS: CREATININE 1.1 mg/dL (0.55-1.3); SGOT/AST 22 U/L (15-37); SGPT/ALT 36 U/L (13-61)
[2023-09-07 02:28] LABS: BILIRUBIN,TOTAL 0.3 mg/dL (0.2-1); TOT PROT 7.1 g/dl (6.4-8.2)
[2023-09-07 02:29] LABS: ALK PHOS 121 U/L (45-117)
[2023-09-07 02:32] LABS: GLUCOSE,RANDOM 646 mg/dL (74-106)
[2023-09-07] MEDS ORDERED: SODIUM CHLORIDE 0.9% 500 ML INFUS.BAG IV ONE ×2 (02:41→05:12)
[2023-09-07] MEDS ORDERED: INSULIN (NOVOLOG) ASPART 100 UNITS/ML 10ML VIAL SQ ONE (02:44)
[2023-09-07 06:38] VITALS: BP 123/76; PULSE 77; TEMP 97.6
== END 2023-09-07 06:53 | disposition home or self-care (01) ==
LOC: JER 00:29
PROC: 3E033NZ Introduction of Analgesics, Hypnotics, Sedatives into Peripheral Vein, Percutaneous Approach (ICD-10-PCS; principal; 2023-09-07)
PROC: 3E013VG Introduction of Insulin into Subcutaneous Tissue, Percutaneous Approach (ICD-10-PCS; 2023-09-07)
DX: K62.5 Hemorrhage of anus and rectum (principal); R10.32 Left lower quadrant pain; K62.89 Other specified diseases of anus and rectum; K52.9 Noninfective gastroenteritis and colitis, unspecified
CPT/HCPCS: 36415; 71046-TC-FY; 74177-TC; 80053; 82272; 82962; 84484; 84703; 85025; 85610; 85730; 86850; 86900; 86901; 93005; 93010; 99285-25; Q9967

== ENCOUNTER 2023-09-17 23:38 | Emergency (ER) | payer OTHER ==
[2023-09-17 23:45] VITALS: RESP 18; BMI 29.2
[2023-09-18 00:21] LABS: THROAT:GRP A STREP NOT DETECTED (NOTDETECTED)
[2023-09-18] MEDS ORDERED: ACETAMINOPHEN 1000 MG/100 ML BAG IVPB ONE (01:59)
[2023-09-18] MEDS ORDERED: ACETAMINOPHEN INJECTION 100 ML IVPB ONE (02:03)
[2023-09-18 02:23] LABS: BASO % 1.3 % (0-2.0); EOS % 4.8 % (0-4.5); HEMATOCRIT 34.2 % (32.4-45.2); HEMOGLOBIN 12.2 GM/dL (10.7-15.3); LYMPH % 41.3 % (8-40); MCH 28.9 pg (25.7-33.7); MCHC 35.7 g/dl (32.0-36.0); MEAN CELL VOLUME 80.9 fl (80-96); MEAN PLT VOLUME 8.6 fl (7.5-11.1); MONO % 8.6 % (3.8-10.2); PLATELET COUNT 246 10^3/uL (134-434); RBC 4.22 M/mm3 (3.60-5.2); RDW 13.4 % (11.6-15.6); WHITE BLOOD COUNT 7.9 K/mm3 (4.0-10.0)
[2023-09-18 02:42] LABS: POTASSIUM 3.8 mmol/L (3.5-5.1)
[2023-09-18 02:44] LABS: CALCIUM 9.1 mg/dL (8.5-10.1)
[2023-09-18 02:45] LABS: ALBUMIN 3.5 g/dl (3.4-5.0); BLOOD UREA NITROGEN 31.2 mg/dL (7-18)
[2023-09-18 02:48] LABS: CREATININE 1.1 mg/dL (0.55-1.3)
[2023-09-18 02:49] LABS: TOT PROT 7.2 g/dl (6.4-8.2)
[2023-09-18 02:50] LABS: BILIRUBIN,TOTAL 0.2 mg/dL (0.2-1)
[2023-09-18 08:37] VITALS: BP 114/71; PULSE 76; TEMP 97.6
== END 2023-09-18 09:08 | disposition home or self-care (01) ==
LOC: JER 23:38
PROC: 3E033NZ Introduction of Analgesics, Hypnotics, Sedatives into Peripheral Vein, Percutaneous Approach (ICD-10-PCS; principal; 2023-09-18)
DX: R07.0 Pain in throat (principal); R51.9 Headache, unspecified; H92.01 Otalgia, right ear; R07.9 Chest pain, unspecified; R05.9 Cough, unspecified; R11.0 Nausea; L04.9 Acute lymphadenitis, unspecified; Z20.822 Contact with and (suspected) exposure to COVID-19
CPT/HCPCS: 0241U-QW; 36415; 70487-TC; 70491-TC; 80053; 84703; 85025; 87651; 99285-25

== ENCOUNTER 2023-10-12 18:11 | Emergency (ER) | payer OTHER ==
[2023-10-12 18:19] VITALS: BP 107/55; PULSE 94; RESP 18; TEMP 98.6; BMI 26.5
[2023-10-12] MEDS ORDERED: KETOROLAC TROMETHAMINE 30 MG/1 ML VIAL IM ONE (20:01)
[2023-10-12] MEDS ORDERED: DOXYCYCLINE HYCLATE 100 MG CAPSULE PO ONE ×2 (20:01→20:06)
[2023-10-12] MEDS ORDERED: KETOROLAC TROMETHAMINE 30 MG/1 ML VIAL ONE (20:06)
[2023-10-12] MEDS ORDERED: DIPHTH,PERTUSS(ACELL),TET 0.5 ML DISP.SYRIN IM ONE (20:13)
== END 2023-10-12 20:27 | disposition home or self-care (01) ==
LOC: JERFT 18:11 → JER 18:11 → JERFT 20:27
PROC: 3E0233Z Introduction of Anti-inflammatory into Muscle, Percutaneous Approach (ICD-10-PCS; principal; 2023-10-12)
DX: L02.433 Carbuncle of right upper limb (principal)
CPT/HCPCS: 99284-25

== ENCOUNTER 2023-10-23 23:27 | Observation (INO) | payer OTHER ==
[2023-10-23 23:32] VITALS: RESP 18; BMI 32.1
[2023-10-24] MEDS ORDERED: SODIUM CHLORIDE 0.9% 500 ML INFUS.BAG IV ONE ×2 (00:16→01:19)
[2023-10-24] MEDS ORDERED: METOCLOPRAMIDE HCL INJECTION 10 MG/2 ML VIAL IVPUSH ONE (00:16)
[2023-10-24] MEDS ORDERED: ACETAMINOPHEN 1000 MG/100 ML BAG IVPB ONE (00:16)
[2023-10-24] MEDS ORDERED: ACETAMINOPHEN INJECTION 100 ML IVPB ONE (00:24)
[2023-10-24] MEDS ORDERED: METOCLOPRAMIDE HCL INJECTION 10 MG/2 ML VIAL ONE (00:27)
[2023-10-24 00:31] LABS: BASO % 0.8 % (0-2.0); EOS % 3.9 % (0-4.5); HEMATOCRIT 32.5 % (32.4-45.2); HEMOGLOBIN 11.1 GM/dL (10.7-15.3); LYMPH % 28.1 % (8-40); MCH 28.3 pg (25.7-33.7); MCHC 34.1 g/dl (32.0-36.0); MEAN CELL VOLUME 83.2 fl (80-96); MEAN PLT VOLUME 8.8 fl (7.5-11.1); MONO % 8.8 % (3.8-10.2); NEUT % 58.4 % (42.8-82.8); PLATELET COUNT 271 10^3/uL (134-434); RBC 3.91 M/mm3 (3.60-5.2); RDW 13.1 % (11.6-15.6); WHITE BLOOD COUNT 10.4 K/mm3 (4.0-10.0)
[2023-10-24 00:50] LABS: CHLORIDE 91 mmol/L (98-107); POTASSIUM 4.6 mmol/L (3.5-5.1); SODIUM 127 mmol/L (136-145)
[2023-10-24 00:53] LABS: ALBUMIN 3.2 g/dl (3.4-5.0); ANION GAP 8 mmol/L (4-13); CO2 28 mmol/L (21-32); MAGNESIUM 2.5 mg/dL (1.8-2.4)
[2023-10-24 00:54] LABS: LIPASE 178 U/L (73-393)
[2023-10-24 00:56] LABS: CREATININE 1.5 mg/dL (0.55-1.3); SGPT/ALT 29 U/L (13-61)
[2023-10-24 00:57] LABS: BILIRUBIN,TOTAL 0.4 mg/dL (0.2-1); SGOT/AST 24 U/L (15-37)
[2023-10-24 00:58] LABS: TOT PROT 6.6 g/dl (6.4-8.2)
[2023-10-24 00:59] LABS: ALK PHOS 118 U/L (45-117)
[2023-10-24 01:02] LABS: GLUCOSE,RANDOM 608 mg/dL (74-106)
[2023-10-24] MEDS ORDERED: AMOX TR/POT CLAV 875MG/125MG TABLETS (FP) PO ONE (02:17)
[2023-10-24] MEDS ORDERED: AMOX TR/POT CLAV 875MG/125MG TABLETS (FP) ONE (02:36)
[2023-10-24] MEDS ORDERED: INSULIN REGULAR HUMAN 100 UNITS/ML *VIAL IVPUSH ONE (02:52)
[2023-10-24 03:31] LABS: PH,URINE 5.5 (5.0-8.0); URINE APPEARANCE CLEAR; URINE BILIRUBIN NEGATIVE (NEGATIVE); URINE COLOR YELLOW; URINE GLUCOSE (UA) 3+ (NEGATIVE); URINE KETONE NEGATIVE (NEGATIVE); URINE LEUK ESTERASE NEGATIVE (NEGATIVE); URINE NITRITE NEGATIVE (NEGATIVE); URINE PROTEIN NEGATIVE (NEGATIVE); URINE UROBILINOGEN 0.2 mg/dL (0.2-1.0)
[2023-10-24] MEDS ORDERED: SODIUM CHLORIDE 1,000 ML IV SCH (05:15)
[2023-10-24] MEDS ORDERED: guaiFENesin 200 MG/10 ML 10 ML UNIT-DOSE CUPS PO PRN (06:39)
[2023-10-24] MEDS: INSULIN SLIDING SCALE (NOVOLOG) 1 VIAL SQ SCH ×4 (06:41→21:26)
[2023-10-24] MEDS: PANTOPRAZOLE 40 MG TABLET PO SCH (09:38)
[2023-10-24] MEDS: BUDESONIDE/FORMETEROL FUMARATE 160/4.5 mcg INHALER IH SCH ×2 (09:38→21:27)
[2023-10-24] MEDS: EZETIMIBE 10 MG TABLET (FP) PO SCH (09:38)
[2023-10-24] MEDS: INSULIN (LEVEMIR) 100 UNITS/ML UNITS SQ SCH ×2 (09:39→21:27)
[2023-10-24] MEDS: SODIUM CHLORIDE 1,000 ML IV SCH ×2 (15:10→20:31)
[2023-10-24] MEDS: AMOX TR/POT CLAV 875MG/125MG TABLETS (FP) PO SCH (17:01)
[2023-10-24] MEDS: ACETAMINOPHEN 325 MG TABLET (FP) PO PRN (21:42)
[2023-10-24] MEDS ORDERED: GABAPENTIN 100 MG CAPSULE PO SCH (22:00)
[2023-10-25] MEDS: INSULIN SLIDING SCALE (NOVOLOG) 1 VIAL SQ SCH ×2 (06:19→11:34)
[2023-10-25] MEDS: INSULIN (LEVEMIR) 100 UNITS/ML UNITS SQ SCH (06:20)
[2023-10-25] MEDS: AMOX TR/POT CLAV 875MG/125MG TABLETS (FP) PO SCH (08:42)
[2023-10-25 09:19] VITALS: BP 139/76; PULSE 89; TEMP 98
[2023-10-25 09:27] LABS: POTASSIUM 4.4 mmol/L (3.5-5.1)
[2023-10-25] MEDS: ACETAMINOPHEN 325 MG TABLET (FP) PO PRN (09:50)
[2023-10-25] MEDS: PANTOPRAZOLE 40 MG TABLET PO SCH (09:50)
[2023-10-25] MEDS: EZETIMIBE 10 MG TABLET (FP) PO SCH (09:50)
[2023-10-25] MEDS: BUDESONIDE/FORMETEROL FUMARATE 160/4.5 mcg INHALER IH SCH (09:50)
[2023-10-25 09:51] LABS: CALCIUM 8.6 mg/dL (8.5-10.1)
[2023-10-25 09:52] LABS: ALBUMIN 2.8 g/dl (3.4-5.0); BLOOD UREA NITROGEN 14.8 mg/dL (7-18)
[2023-10-25 09:55] LABS: CREATININE 0.8 mg/dL (0.55-1.3)
[2023-10-25 09:56] LABS: BILIRUBIN,TOTAL 0.4 mg/dL (0.2-1); TOT PROT 6.4 g/dl (6.4-8.2)
[2023-10-25] MEDS: SODIUM CHLORIDE 1,000 ML IV SCH (11:28)
[2023-10-25] MEDS ORDERED: SODIUM CHLORIDE 0.45% 1,000 ML IV SCH (14:15)
== END 2023-10-25 16:03 | disposition home or self-care (01) ==
LOC: JER 23:27 → JERBED 10-24 01:59 → J5S 10-24 04:56
PROVIDERS: ADMIT Internal Medicine; ATTEND Internal Medicine
PROC: 3E033NZ Introduction of Analgesics, Hypnotics, Sedatives into Peripheral Vein, Percutaneous Approach (ICD-10-PCS; principal; 2023-10-24)
PROC: 3E013VG Introduction of Insulin into Subcutaneous Tissue, Percutaneous Approach (ICD-10-PCS; 2023-10-24)
PROC: 3E033VG Introduction of Insulin into Peripheral Vein, Percutaneous Approach (ICD-10-PCS; 2023-10-24)
PROC: 3E033GC Introduction of Other Therapeutic Substance into Peripheral Vein, Percutaneous Approach (ICD-10-PCS; 2023-10-24)
PROC: 3E0337Z Introduction of Electrolytic and Water Balance Substance into Peripheral Vein, Percutaneous Approach (ICD-10-PCS; 2023-10-24)
DX: J01.20 Acute ethmoidal sinusitis, unspecified (principal); E11.9 Type 2 diabetes mellitus without complications; R42 Dizziness and giddiness; N17.9 Acute kidney failure, unspecified; F32.A Depression, unspecified; G62.9 Polyneuropathy, unspecified; K86.0 Alcohol-induced chronic pancreatitis; F11.90 Opioid use, unspecified, uncomplicated; E78.5 Hyperlipidemia, unspecified; I11.0 Hypertensive heart disease with heart failure; I69.854 Hemiplegia and hemiparesis following other cerebrovascular disease affecting left non-dominant side; F10.21 Alcohol dependence, in remission; I25.10 Atherosclerotic heart disease of native coronary artery without angina pectoris; Z88.8 Allergy status to other drugs, medicaments and biological substances; R51.9 Headache, unspecified; I25.2 Old myocardial infarction
CPT/HCPCS: 0241U-QW; 36415; 70450-TC; 70486-TC; 71045-TC-FY; 76775-TC; 80048; 80053; 81003; 82010; 82962; 83036; 83690; 83735; 84484; 85025; 87086; 93005; 93010; 96361; 96372; 96374; 96375; 99285-25; G0378

== ENCOUNTER 2023-11-28 11:30 | Observation (INO) | payer OTHER ==
[2023-11-28] MEDS ORDERED: ONDANSETRON 4 MG/2 ML VIAL IVPUSH ONE (13:58)
[2023-11-28] MEDS ORDERED: SODIUM CHLORIDE 1,000 ML IV STA ×2 (13:58→18:25)
[2023-11-28] MEDS ORDERED: ONDANSETRON 4 MG/2 ML VIAL ONE (14:49)
[2023-11-28 15:09] LABS: BASO % 0.7 % (0-2.0); EOS % 1.3 % (0-4.5); HEMOGLOBIN 12.9 GM/dL (10.7-15.3); LYMPH % 17.4 % (8-40); MCH 28.4 pg (25.7-33.7); MCHC 33.1 g/dl (32.0-36.0); MEAN CELL VOLUME 85.9 fl (80-96); MEAN PLT VOLUME 7.9 fl (7.5-11.1); MONO % 3.7 % (3.8-10.2); NEUT % 76.9 % (42.8-82.8); PLATELET COUNT 360 10^3/uL (134-434); RBC 4.54 M/mm3 (3.60-5.2); RDW 13.2 % (11.6-15.6); WHITE BLOOD COUNT 9.7 K/mm3 (4.0-10.0)
[2023-11-28 15:22] LABS: VENOUS BASE EXCESS -0.6 mmol/L (-2-2); VENOUS O2 SATURATION 58.1 % (70-80); VENOUS PCO2 43.3 mmHg (38-52); VENOUS PH 7.375 (7.310-7.410)
[2023-11-28 15:51] LABS: POTASSIUM 4.3 mmol/L (3.5-5.1)
[2023-11-28 15:55] LABS: ALBUMIN 3.6 g/dl (3.4-5.0); CALCIUM 9.6 mg/dL (8.5-10.1)
[2023-11-28 15:56] LABS: BLOOD UREA NITROGEN 16.8 mg/dL (7-18)
[2023-11-28 15:58] LABS: CREATININE 0.8 mg/dL (0.55-1.3)
[2023-11-28 16:00] LABS: BILIRUBIN,TOTAL 0.4 mg/dL (0.2-1); TOT PROT 7.7 g/dl (6.4-8.2)
[2023-11-28] MEDS ORDERED: MECLIZINE HCL 25 MG TABLET (FP) PO ONE (17:16)
[2023-11-28] MEDS ORDERED: ACETAMINOPHEN 1000 MG/100 ML BAG IVPB ONE (17:18)
[2023-11-28] MEDS ORDERED: ACETAMINOPHEN INJECTION 100 ML IVPB ONE (17:24)
[2023-11-28] MEDS ORDERED: MECLIZINE HCL 25 MG TABLET (FP) ONE (17:24)
[2023-11-28] MEDS ORDERED: METOCLOPRAMIDE HCL INJECTION 10 MG/2 ML VIAL IVPUSH ONE (18:24)
[2023-11-28] MEDS ORDERED: METOCLOPRAMIDE HCL INJECTION 10 MG/2 ML VIAL ONE (18:56)
[2023-11-28] MEDS ORDERED: TRIMETHOBENZAMIDE HCL 200MG/2ML INJ IM PRN (21:48)
[2023-11-28] MEDS ORDERED: KETOROLAC TROMETHAMINE 15 MG/ML VIAL IVPUSH ONE (21:57)
[2023-11-28] MEDS ORDERED: INSULIN ASPART SLIDING SCALE (NOVOLOG) 1 VIAL SQ SCH (22:00)
[2023-11-28] MEDS ORDERED: SODIUM CHLORIDE 1,000 ML IV SCH (22:00)
[2023-11-28] MEDS ORDERED: KETOROLAC TROMETHAMINE 15 MG/ML VIAL ONE (22:55)
[2023-11-28] MEDS: INSULIN ASPART SLIDING SCALE (NOVOLOG) 1 VIAL SQ SCH (23:00)
[2023-11-28 23:02] LABS: MAGNESIUM 1.9 mg/dL (1.8-2.4)
[2023-11-28 23:05] LABS: PHOSPHOROUS 3.9 mg/dL (2.5-4.9)
[2023-11-28] MEDS ORDERED: ACETAMINOPHEN 1000 MG/100 ML BAG IVPB PRN (23:30)
[2023-11-28] MEDS ORDERED: MECLIZINE HCL 25 MG TABLET (FP) PO PRN (23:30)
[2023-11-29 00:44] LABS: EPI CELLS >36 /uL (0-25.1); HYALINE CASTS 1 /uL (0-3.1); PH,URINE 6.5 (5.0-8.0); URINE APPEARANCE CLEAR; URINE BACTERIA 756 /uL (0-1359); URINE BILIRUBIN NEGATIVE (NEGATIVE); URINE COLOR YELLOW; URINE GLUCOSE (UA) 3+ (NEGATIVE); URINE KETONE 2+ (NEGATIVE); URINE LEUK ESTERASE NEGATIVE (NEGATIVE); URINE NITRITE NEGATIVE (NEGATIVE); URINE PROTEIN TRACE (NEGATIVE); URINE RBC 24 /uL (0-23.9); URINE UROBILINOGEN 0.2 mg/dL (0.2-1.0); URINE WBC 12 /uL (0-25.8)
[2023-11-29] MEDS: INSULIN ASPART SLIDING SCALE (NOVOLOG) 1 VIAL SQ SCH ×2 (03:46→06:33)
[2023-11-29 04:36] VITALS: RESP 18; TEMP 98.3; BMI 27.4
[2023-11-29] MEDS ORDERED: INSULIN (NOVOLOG) ASPART 100 UNITS/ML 10ML VIAL ONE (06:12)
[2023-11-29 09:42] LABS: BASO % 0.7 % (0-2.0); EOS % 1.9 % (0-4.5); HEMATOCRIT 33.9 % (32.4-45.2); HEMOGLOBIN 11.5 GM/dL (10.7-15.3); LYMPH % 25.2 % (8-40); MCH 28.5 pg (25.7-33.7); MCHC 33.8 g/dl (32.0-36.0); MEAN CELL VOLUME 84.4 fl (80-96); NEUT % 65.2 % (42.8-82.8); PLATELET COUNT 343 10^3/uL (134-434); RBC 4.02 M/mm3 (3.60-5.2); RDW 13.7 % (11.6-15.6); WHITE BLOOD COUNT 9.1 K/mm3 (4.0-10.0)
[2023-11-29 10:05] LABS: POTASSIUM 3.6 mmol/L (3.5-5.1)
[2023-11-29 10:07] LABS: BLOOD UREA NITROGEN 19.4 mg/dL (7-18); CALCIUM 8.6 mg/dL (8.5-10.1)
[2023-11-29 10:11] LABS: CREATININE 0.7 mg/dL (0.55-1.3)
[2023-11-29] MEDS ORDERED: INSULIN ASPART SLIDING SCALE (NOVOLOG) 1 VIAL SQ SCH (11:00)
[2023-11-29] MEDS ORDERED: SODIUM CHLORIDE NASAL SPRAY 44 ML BOTTLE NS PRN (11:55)
[2023-11-29] MEDS ORDERED: LORATADINE 10 MG TABLET PO SCH (12:00)
[2023-11-29] MEDS ORDERED: CEFTRIAXONE 1 GM in DEXTROSE 5%-WATER - 50 ML IVPB ONE (13:15)
[2023-11-29 14:52] VITALS: BP 139/81; PULSE 82
[2023-11-29] MEDS ORDERED: ACETAMINOPHEN 325 MG TABLET (FP) PO PRN (23:30)
== END 2023-11-29 16:14 | disposition home or self-care (01) ==
LOC: JER 11:30 → JERBED 19:47 → J8W 11-29 03:52
PROVIDERS: ADMIT Internal Medicine; ATTEND Family Medicine
PROC: 3E033NZ Introduction of Analgesics, Hypnotics, Sedatives into Peripheral Vein, Percutaneous Approach (ICD-10-PCS; principal; 2023-11-28)
PROC: 3E0337Z Introduction of Electrolytic and Water Balance Substance into Peripheral Vein, Percutaneous Approach (ICD-10-PCS; 2023-11-28)
PROC: 3E013VG Introduction of Insulin into Subcutaneous Tissue, Percutaneous Approach (ICD-10-PCS; 2023-11-28)
DX: J01.90 Acute sinusitis, unspecified (principal); R42 Dizziness and giddiness; I10 Essential (primary) hypertension; E78.5 Hyperlipidemia, unspecified; I25.2 Old myocardial infarction; E11.9 Type 2 diabetes mellitus without complications; F32.A Depression, unspecified; Z86.73 Personal history of transient ischemic attack (TIA), and cerebral infarction without residual deficits; Z90.49 Acquired absence of other specified parts of digestive tract; Z88.8 Allergy status to other drugs, medicaments and biological substances
CPT/HCPCS: 0241U-QW; 36415; 70450-TC; 80048; 80053; 81003; 82010; 82803; 82962; 83690; 83735; 84100; 85025; 87086; 93005; 93010; 96361; 96372; 96374; 96375; 97116-GP; 97161-GP; 99285-25; G0378

== ENCOUNTER 2023-12-22 00:14 | Observation (INO) | payer OTHER ==
[2023-12-22 00:20] VITALS: BMI 27.4
[2023-12-22] MEDS ORDERED: LABETALOL HCL 5 MG/1 ML (100MG/20 ML VIAL) IVPUSH ONE ×2 (01:32→02:22)
[2023-12-22 01:45] LABS: HEMATOCRIT 37.3 % (32.4-45.2); HEMOGLOBIN 12.6 GM/dL (10.7-15.3); LYMPH % 38.6 % (8-40); MCH 28.6 pg (25.7-33.7); MCHC 33.7 g/dl (32.0-36.0); MEAN PLT VOLUME 8.6 fl (7.5-11.1); MONO % 8.3 % (3.8-10.2); NEUT % 47.1 % (42.8-82.8); PLATELET COUNT 269 10^3/uL (134-434); RBC 4.39 M/mm3 (3.60-5.2); RDW 13.2 % (11.6-15.6); WHITE BLOOD COUNT 7.4 K/mm3 (4.0-10.0)
[2023-12-22 01:48] LABS: INR 0.91 (0.83-1.09); PROTHROMBIN TIME (PATIENT) 10.6 SEC (9.7-13.0)
[2023-12-22 01:50] LABS: ACTIVATED PTT 29.4 SECONDS (25.2-36.5)
[2023-12-22] MEDS ORDERED: LABETALOL HCL 5 MG/1 ML (100MG/20 ML VIAL) ONE (01:59)
[2023-12-22 02:04] LABS: POTASSIUM 3.6 mmol/L (3.5-5.1)
[2023-12-22 02:06] LABS: ALBUMIN 3.4 g/dl (3.4-5.0); CALCIUM 9.9 mg/dL (8.5-10.1)
[2023-12-22 02:07] LABS: BLOOD UREA NITROGEN 17.4 mg/dL (7-18)
[2023-12-22 02:10] LABS: CREATININE 0.7 mg/dL (0.55-1.3)
[2023-12-22 02:11] LABS: TOT PROT 7.4 g/dl (6.4-8.2)
[2023-12-22 02:12] LABS: BILIRUBIN,TOTAL 0.4 mg/dL (0.2-1)
[2023-12-22] MEDS: SODIUM CHLORIDE 1,000 ML IV SCH ×2 (02:15→02:42)
[2023-12-22] MEDS ORDERED: ONDANSETRON 4 MG/2 ML VIAL IVPUSH ONE ×2 (02:18→02:22)
[2023-12-22] MEDS ORDERED: ONDANSETRON 4 MG/2 ML VIAL ONE (02:25)
[2023-12-22 02:42] LABS: EPI CELLS >36 /uL (0-25.1); HYALINE CASTS 1 /uL (0-3.1); URINE APPEARANCE CLEAR; URINE BACTERIA 244 /uL (0-1359); URINE BILIRUBIN NEGATIVE (NEGATIVE); URINE COLOR YELLOW; URINE GLUCOSE (UA) 3+ (NEGATIVE); URINE KETONE NEGATIVE (NEGATIVE); URINE LEUK ESTERASE NEGATIVE (NEGATIVE); URINE NITRITE NEGATIVE (NEGATIVE); URINE PROTEIN 1+ (NEGATIVE); URINE UROBILINOGEN 0.2 mg/dL (0.2-1.0); URINE WBC 27 /uL (0-25.8)
[2023-12-22] MEDS ORDERED: MECLIZINE HCL 25 MG TABLET (FP) PO PRN (07:16)
[2023-12-22] MEDS ORDERED: ONDANSETRON 4 MG/2 ML VIAL IVPUSH PRN (07:30)
[2023-12-22] MEDS: INSULIN ASPART SLIDING SCALE (NOVOLOG) 1 VIAL SQ SCH ×4 (07:59→21:09)
[2023-12-22] MEDS: INSULIN (LEVEMIR) 100 UNITS/ML UNITS SQ SCH ×2 (08:13→11:00)
[2023-12-22] MEDS ORDERED: PATIENT'S OWN MEDICATION (NON-FORMULARY) (Losartan/Hydrochlorothiazide [Losartan-Hctz 100- PO SCH (10:00)
[2023-12-22] MEDS ORDERED: DIVALPROEX NA *ER* EXTEND REL 250 MG TABLET.SA PO SCH (10:00)
[2023-12-22 10:31] LABS: BASO % 0.7 % (0-2.0); EOS % 0.5 % (0-4.5); HEMATOCRIT 36.8 % (32.4-45.2); HEMOGLOBIN 12.1 GM/dL (10.7-15.3); LYMPH % 13.8 % (8-40); MCH 28.2 pg (25.7-33.7); MEAN CELL VOLUME 85.4 fl (80-96); MEAN PLT VOLUME 8.4 fl (7.5-11.1); MONO % 3.8 % (3.8-10.2); NEUT % 81.2 % (42.8-82.8); PLATELET COUNT 261 10^3/uL (134-434); RBC 4.31 M/mm3 (3.60-5.2); RDW 13.2 % (11.6-15.6); WHITE BLOOD COUNT 11.4 K/mm3 (4.0-10.0)
[2023-12-22 10:41] LABS: POTASSIUM 4.1 mmol/L (3.5-5.1)
[2023-12-22 10:44] LABS: BLOOD UREA NITROGEN 20.2 mg/dL (7-18); CALCIUM 9.6 mg/dL (8.5-10.1)
[2023-12-22 10:45] LABS: ALBUMIN 3.3 g/dl (3.4-5.0); MAGNESIUM 1.8 mg/dL (1.8-2.4)
[2023-12-22 10:47] LABS: CREATININE 1.1 mg/dL (0.55-1.3); PHOSPHOROUS 4.1 mg/dL (2.5-4.9)
[2023-12-22 10:49] LABS: BILIRUBIN,TOTAL 0.3 mg/dL (0.2-1); TOT PROT 7.2 g/dl (6.4-8.2)
[2023-12-22] MEDS: amLODIPine BESYLATE 5 MG TABLET (FP) PO SCH (11:01)
[2023-12-22] MEDS: LISINOPRIL 20 MG TABLET PO SCH (11:01)
[2023-12-22] MEDS: ACETAMINOPHEN 1000 MG/100 ML BAG IVPB PRN ×2 (11:18→18:26)
[2023-12-22] MEDS: BUDESONIDE/FORMETEROL FUMARATE 160/4.5 mcg INHALER IH SCH ×2 (11:23→21:10)
[2023-12-22] MEDS: GABAPENTIN 400 MG CAPSULE PO SCH ×2 (14:19→21:09)
[2023-12-22] MEDS: TOPIRAMATE 25 MG TABLET PO SCH (21:09)
[2023-12-22] MEDS: ROSUVASTATIN CA 20 MG TABLET PO SCH (21:09)
[2023-12-23] MEDS: ACETAMINOPHEN 1000 MG/100 ML BAG IVPB PRN ×2 (05:55→12:00)
[2023-12-23] MEDS: GABAPENTIN 400 MG CAPSULE PO SCH ×3 (06:12→21:44)
[2023-12-23] MEDS: INSULIN ASPART SLIDING SCALE (NOVOLOG) 1 VIAL SQ SCH ×4 (06:24→21:44)
[2023-12-23] MEDS ORDERED: INSULIN (NOVOLOG) ASPART 100 UNITS/ML 10ML VIAL ONE ×2 (06:58→21:38)
[2023-12-23 07:54] LABS: BASO % 0.6 % (0-2.0); EOS % 5.3 % (0-4.5); HEMATOCRIT 35.2 % (32.4-45.2); HEMOGLOBIN 11.5 GM/dL (10.7-15.3); LYMPH % 39.8 % (8-40); MCH 28.1 pg (25.7-33.7); MCHC 32.7 g/dl (32.0-36.0); MEAN CELL VOLUME 85.8 fl (80-96); MEAN PLT VOLUME 8.5 fl (7.5-11.1); MONO % 7.7 % (3.8-10.2); NEUT % 46.6 % (42.8-82.8); PLATELET COUNT 236 10^3/uL (134-434); RDW 13.6 % (11.6-15.6); WHITE BLOOD COUNT 5.8 K/mm3 (4.0-10.0)
[2023-12-23 08:35] LABS: POTASSIUM 4.7 mmol/L (3.5-5.1)
[2023-12-23 08:39] LABS: CALCIUM 8.7 mg/dL (8.5-10.1)
[2023-12-23 08:40] LABS: ALBUMIN 2.8 g/dl (3.4-5.0); BLOOD UREA NITROGEN 25.2 mg/dL (7-18)
[2023-12-23 08:43] LABS: CREATININE 0.8 mg/dL (0.55-1.3)
[2023-12-23 08:44] LABS: BILIRUBIN,TOTAL 0.3 mg/dL (0.2-1); TOT PROT 6.2 g/dl (6.4-8.2)
[2023-12-23] MEDS: INSULIN (LEVEMIR) 100 UNITS/ML UNITS SQ SCH ×2 (09:40→21:44)
[2023-12-23] MEDS: LISINOPRIL 20 MG TABLET PO SCH (09:41)
[2023-12-23] MEDS: amLODIPine BESYLATE 5 MG TABLET (FP) PO SCH (09:41)
[2023-12-23] MEDS: TOPIRAMATE 25 MG TABLET PO SCH ×2 (09:41→21:43)
[2023-12-23] MEDS: BUDESONIDE/FORMETEROL FUMARATE 160/4.5 mcg INHALER IH SCH ×2 (10:00→21:55)
[2023-12-23] MEDS ORDERED: morphine SULFATE 4 MG/ML VIAL IVPUSH PRN (15:33)
[2023-12-23] MEDS ORDERED: SODIUM CHLORIDE 1,000 ML IV STA (18:46)
[2023-12-23] MEDS ORDERED: methylPREDNISolone NA SUCC 125 MG/2 ML VIAL IVPUSH ONE (18:46)
[2023-12-23] MEDS: ROSUVASTATIN CA 20 MG TABLET PO SCH (21:43)
[2023-12-24 06:14] VITALS: RESP 18
[2023-12-24] MEDS: GABAPENTIN 400 MG CAPSULE PO SCH (06:28)
[2023-12-24] MEDS: INSULIN ASPART SLIDING SCALE (NOVOLOG) 1 VIAL SQ SCH ×2 (06:28→12:19)
[2023-12-24] MEDS: INSULIN (LEVEMIR) 100 UNITS/ML UNITS SQ SCH (06:28)
[2023-12-24] MEDS: amLODIPine BESYLATE 5 MG TABLET (FP) PO SCH (09:28)
[2023-12-24] MEDS: BUDESONIDE/FORMETEROL FUMARATE 160/4.5 mcg INHALER IH SCH (09:28)
[2023-12-24] MEDS: TOPIRAMATE 25 MG TABLET PO SCH (09:28)
[2023-12-24 11:24] VITALS: BP 116/62; PULSE 92; TEMP 97.9
[2023-12-24] MEDS: LISINOPRIL 20 MG TABLET PO SCH (13:31)
== END 2023-12-24 14:15 | disposition home or self-care (01) ==
LOC: JER 00:14 → JERBED 04:35 → J4W 09:29
PROVIDERS: ADMIT Family Medicine; ATTEND Family Medicine
PROC: 3E033NZ Introduction of Analgesics, Hypnotics, Sedatives into Peripheral Vein, Percutaneous Approach (ICD-10-PCS; principal; 2023-12-22)
PROC: 3E033GC Introduction of Other Therapeutic Substance into Peripheral Vein, Percutaneous Approach (ICD-10-PCS; 2023-12-22)
PROC: 3E013VG Introduction of Insulin into Subcutaneous Tissue, Percutaneous Approach (ICD-10-PCS; 2023-12-22)
PROC: 3E0337Z Introduction of Electrolytic and Water Balance Substance into Peripheral Vein, Percutaneous Approach (ICD-10-PCS; 2023-12-22)
DX: I16.1 Hypertensive emergency (principal); R42 Dizziness and giddiness; G43.809 Other migraine, not intractable, without status migrainosus; E78.5 Hyperlipidemia, unspecified; K31.84 Gastroparesis; E11.40 Type 2 diabetes mellitus with diabetic neuropathy, unspecified; I25.2 Old myocardial infarction; F11.90 Opioid use, unspecified, uncomplicated; R07.89 Other chest pain; I69.854 Hemiplegia and hemiparesis following other cerebrovascular disease affecting left non-dominant side; L53.8 Other specified erythematous conditions; F32.A Depression, unspecified; F10.21 Alcohol dependence, in remission; K86.0 Alcohol-induced chronic pancreatitis; Z90.49 Acquired absence of other specified parts of digestive tract; T50.8X5A Adverse effect of diagnostic agents, initial encounter; X58.XXXA Exposure to other specified factors, initial encounter; Y93.89 Activity, other specified; Y92.89 Other specified places as the place of occurrence of the external cause
CPT/HCPCS: 0241U-QW; 36415; 70450-TC; 71045-TC-FY; 74178-TC; 80053; 80061; 81003; 82550; 82553; 82962; 83036; 83735; 84100; 84484; 85025; 85610; 85730; 86850; 86900; 86901; 93005; 93010; 93306-TC; 96361; 96372; 96374; 96375; 96376; 99291; G0378; Q9963; Q9967

== ENCOUNTER 2024-06-01 14:44 | Emergency (ER) | payer OTHER ==
[2024-06-01 15:27] VITALS: RESP 16; TEMP 98.4; BMI 31.1
[2024-06-01 17:32] LABS: BASO % 0.6 % (0-2.0); HEMATOCRIT 36.5 % (32.4-45.2); HEMOGLOBIN 12.7 GM/dL (10.7-15.3); LYMPH % 18.5 % (8-40); MCH 29.5 pg (25.7-33.7); MCHC 34.8 g/dl (32.0-36.0); MEAN CELL VOLUME 84.7 fl (80-96); MEAN PLT VOLUME 8.5 fl (7.5-11.1); NEUT % 74.9 % (42.8-82.8); PLATELET COUNT 279 10^3/uL (134-434); RBC 4.31 M/mm3 (3.60-5.2); RDW 13.3 % (11.6-15.6); WHITE BLOOD COUNT 10.1 K/mm3 (4.0-10.0)
[2024-06-01 17:49] LABS: POTASSIUM 4.4 mmol/L (3.5-5.1)
[2024-06-01 17:51] LABS: CALCIUM 9.2 mg/dL (8.5-10.1)
[2024-06-01 17:52] LABS: ALBUMIN 3.5 g/dl (3.4-5.0); BLOOD UREA NITROGEN 21.7 mg/dL (7-18)
[2024-06-01 17:55] LABS: CREATININE 0.9 mg/dL (0.55-1.3)
[2024-06-01 17:57] LABS: BILIRUBIN,TOTAL 0.2 mg/dL (0.2-1)
[2024-06-01] MEDS ORDERED: ACETAMINOPHEN 325 MG TABLET (FP) ONE (18:43)
[2024-06-01] MEDS: ACETAMINOPHEN 325 MG TABLET (FP) PO ONE (18:45)
[2024-06-01 18:48] VITALS: BP 171/88; PULSE 85
== END 2024-06-01 20:44 | disposition home or self-care (01) ==
LOC: JER 14:44
DX: R07.89 Other chest pain (principal); R42 Dizziness and giddiness; R53.1 Weakness; E11.649 Type 2 diabetes mellitus with hypoglycemia without coma
CPT/HCPCS: 36415; 71045-TC-FY; 80053; 82962; 84484; 85025; 93005; 93010; 99285-25

== ENCOUNTER 2024-07-01 19:50 | Emergency (ER) | payer OTHER ==
[2024-07-01 19:58] VITALS: BP 163/94; PULSE 94; RESP 20; TEMP 98.9; BMI 30.7
[2024-07-01] MEDS ORDERED: ACETAMINOPHEN INJECTION 100 ML IVPB ONE (21:14)
[2024-07-01] MEDS: SODIUM CHLORIDE 0.9% 500 ML INFUS.BAG IV ONE (21:21)
[2024-07-01] MEDS: ACETAMINOPHEN 1000 MG/100 ML BAG IVPB ONE (21:21)
[2024-07-01 21:25] LABS: BASO % 0.9 % (0-2.0); EOS % 4.4 % (0-4.5); HEMATOCRIT 34.2 % (32.4-45.2); HEMOGLOBIN 11.6 GM/dL (10.7-15.3); LYMPH % 25.3 % (8-40); MCH 28.6 pg (25.7-33.7); MCHC 33.9 g/dl (32.0-36.0); MEAN CELL VOLUME 84.4 fl (80-96); MEAN PLT VOLUME 8.8 fl (7.5-11.1); MONO % 8.5 % (3.8-10.2); NEUT % 60.9 % (42.8-82.8); PLATELET COUNT 239 10^3/uL (134-434); RBC 4.06 M/mm3 (3.60-5.2); RDW 12.9 % (11.6-15.6); WHITE BLOOD COUNT 10.1 K/mm3 (4.0-10.0)
[2024-07-01 21:44] LABS: POTASSIUM 4.3 mmol/L (3.5-5.1)
[2024-07-01 21:46] LABS: CALCIUM 8.7 mg/dL (8.5-10.1)
[2024-07-01 21:47] LABS: ALBUMIN 3.1 g/dl (3.4-5.0); BLOOD UREA NITROGEN 24.2 mg/dL (7-18)
[2024-07-01 21:50] LABS: CREATININE 1.2 mg/dL (0.55-1.3)
[2024-07-01 21:51] LABS: BILIRUBIN,TOTAL 0.3 mg/dL (0.2-1); TOT PROT 6.6 g/dl (6.4-8.2)
== END 2024-07-01 23:30 | disposition home or self-care (01) ==
LOC: JER 19:50
PROC: 3E033NZ Introduction of Analgesics, Hypnotics, Sedatives into Peripheral Vein, Percutaneous Approach (ICD-10-PCS; principal; 2024-07-01)
DX: K52.9 Noninfective gastroenteritis and colitis, unspecified (principal); R10.13 Epigastric pain; R07.0 Pain in throat; M54.2 Cervicalgia; R68.84 Jaw pain; R06.02 Shortness of breath; R07.89 Other chest pain; Z20.822 Contact with and (suspected) exposure to COVID-19
CPT/HCPCS: 0241U-QW; 36415; 80053; 84436; 84443; 84484; 85025; 93005; 93010; 99284-25; J0131

== ENCOUNTER 2024-07-11 09:01 | Emergency (ER) | payer OTHER ==
[2024-07-11 09:23] VITALS: PULSE 81; RESP 18; TEMP 98.7; BMI 33.6
[2024-07-11 10:19] LABS: BASO % 0.5 % (0-2.0); EOS % 3.1 % (0-4.5); HEMATOCRIT 36.1 % (32.4-45.2); HEMOGLOBIN 12.3 GM/dL (10.7-15.3); LYMPH % 17.1 % (8-40); MCH 28.6 pg (25.7-33.7); MCHC 34.2 g/dl (32.0-36.0); MEAN CELL VOLUME 83.6 fl (80-96); MEAN PLT VOLUME 8.2 fl (7.5-11.1); NEUT % 75.3 % (42.8-82.8); PLATELET COUNT 259 10^3/uL (134-434); RBC 4.31 M/mm3 (3.60-5.2); RDW 12.8 % (11.6-15.6); WHITE BLOOD COUNT 10.1 K/mm3 (4.0-10.0)
[2024-07-11] MEDS ORDERED: ACETAMINOPHEN INJECTION 100 ML IVPB ONE (10:22)
[2024-07-11] MEDS ORDERED: METOCLOPRAMIDE HCL INJECTION 10 MG/2 ML VIAL ONE (10:22)
[2024-07-11] MEDS: LACTATED RINGERS SOLUTION 1000 ML INFUS.BAG IV ONE (10:28)
[2024-07-11] MEDS: ACETAMINOPHEN 1000 MG/100 ML BAG IVPB ONE (10:28)
[2024-07-11] MEDS: METOCLOPRAMIDE HCL INJECTION 10 MG/2 ML VIAL IVPB ONE (10:28)
[2024-07-11 10:30] LABS: INR 0.88 (0.83-1.09)
[2024-07-11 10:33] LABS: ACTIVATED PTT 37.9 SECONDS (25.2-36.5)
[2024-07-11 10:44] LABS: POTASSIUM 4.4 mmol/L (3.5-5.1)
[2024-07-11 10:46] LABS: ALBUMIN 3.4 g/dl (3.4-5.0); CALCIUM 9.3 mg/dL (8.5-10.1)
[2024-07-11 10:48] LABS: CREATININE 1.3 mg/dL (0.55-1.3)
[2024-07-11 10:50] LABS: BILIRUBIN,TOTAL 0.2 mg/dL (0.2-1); TOT PROT 7.3 g/dl (6.4-8.2)
[2024-07-11] MEDS ORDERED: KETOROLAC TROMETHAMINE 15 MG/ML VIAL ONE (12:39)
[2024-07-11] MEDS ORDERED: LIDOCAINE 4% PATCH TP ONE ×2 (12:40→14:30)
[2024-07-11] MEDS: LIDOCAINE 5% TOPICAL PATCH TP ONE ×2 (12:44→13:55)
[2024-07-11] MEDS: KETOROLAC TROMETHAMINE 15 MG/ML VIAL IVPUSH ONE (12:44)
[2024-07-11 14:00] VITALS: BP 180/87
[2024-07-11] MEDS ORDERED: LIDOCAINE PATCH REMOVAL MC SCH ×2 (22:00)
== END 2024-07-11 14:43 | disposition home or self-care (01) ==
LOC: JER 09:01
PROC: 3E033NZ Introduction of Analgesics, Hypnotics, Sedatives into Peripheral Vein, Percutaneous Approach (ICD-10-PCS; principal; 2024-07-11)
PROC: 3E0333Z Introduction of Anti-inflammatory into Peripheral Vein, Percutaneous Approach (ICD-10-PCS; 2024-07-11)
PROC: 3E033GC Introduction of Other Therapeutic Substance into Peripheral Vein, Percutaneous Approach (ICD-10-PCS; 2024-07-11)
DX: G44.209 Tension-type headache, unspecified, not intractable (principal); R42 Dizziness and giddiness; Z20.822 Contact with and (suspected) exposure to COVID-19
CPT/HCPCS: 0241U-QW; 36415; 70450-TC; 71045-TC-FY; 80053; 84484; 85025; 85610; 85730; 93005; 93010; 99285-25; J0131

== ENCOUNTER 2024-10-09 01:22 | Observation (INO) | payer OTHER ==
[2024-10-09 01:36] VITALS: BMI 28.8
[2024-10-09] MEDS ORDERED: ONDANSETRON 4 MG/2 ML VIAL ONE (02:29)
[2024-10-09] MEDS ORDERED: ACETAMINOPHEN INJECTION 100 ML ONE ×2 (02:29→19:13)
[2024-10-09] MEDS: ACETAMINOPHEN 1000 MG/100 ML BAG IVPB ONE (02:33)
[2024-10-09] MEDS: ONDANSETRON 4 MG/2 ML VIAL IVPUSH ONE (02:33)
[2024-10-09 02:36] LABS: BASO % 0.9 % (0-2.0); EOS % 5.5 % (0-4.5); HEMATOCRIT 35.4 % (32.4-45.2); MCH 27.9 pg (25.7-33.7); MCHC 33.8 g/dl (32.0-36.0); MEAN CELL VOLUME 82.7 fl (80-96); MEAN PLT VOLUME 8.2 fl (7.5-11.1); MONO % 7.3 % (3.8-10.2); NEUT % 54.3 % (42.8-82.8); PLATELET COUNT 248 10^3/uL (134-434); RBC 4.28 M/mm3 (3.60-5.2); RDW 14.2 % (11.6-15.6); WHITE BLOOD COUNT 7.4 K/mm3 (4.0-10.0)
[2024-10-09 02:41] LABS: INR 0.91 (0.83-1.09); PROTHROMBIN TIME (PATIENT) 10.3 SEC (9.7-13.0)
[2024-10-09 02:44] LABS: ACTIVATED PTT 35.9 SECONDS (25.2-36.5)
[2024-10-09 02:54] LABS: POTASSIUM 3.8 mmol/L (3.5-5.1)
[2024-10-09 02:57] LABS: ALBUMIN 3.3 g/dl (3.4-5.0); BLOOD UREA NITROGEN 17.7 mg/dL (7-18); CALCIUM 8.7 mg/dL (8.5-10.1)
[2024-10-09 03:01] LABS: BILIRUBIN,TOTAL 0.3 mg/dL (0.2-1); CREATININE 0.9 mg/dL (0.55-1.3); TOT PROT 6.7 g/dl (6.4-8.2)
[2024-10-09 03:45] LABS: EPI CELLS 14 /uL (0-25.1); HYALINE CASTS 0 /uL (0-3.1); PH,URINE 5.5 (5.0-8.0); URINE APPEARANCE CLEAR; URINE BACTERIA 73 /uL (0-1359); URINE BILIRUBIN NEGATIVE (NEGATIVE); URINE COLOR YELLOW; URINE GLUCOSE (UA) 3+ (NEGATIVE); URINE KETONE NEGATIVE (NEGATIVE); URINE LEUK ESTERASE NEGATIVE (NEGATIVE); URINE NITRITE NEGATIVE (NEGATIVE); URINE PROTEIN 1+ (NEGATIVE); URINE RBC 23 /uL (0-23.9); URINE UROBILINOGEN 0.2 mg/dL (0.2-1.0); URINE WBC 9 /uL (0-25.8)
[2024-10-09] MEDS ORDERED: PIPERACILLIN/TAZOB 3.375 GM 3.375 GM/50 ML BAG IVPB ONE (06:22)
[2024-10-09] MEDS ORDERED: MORPHINE SULFATE 2 MG/ML SYRINGE ONE (06:31)
[2024-10-09] MEDS: PIPERACILLIN/TAZOB 3.375 GM 3.375 GM in DEXTROSE 5%-WATER - 50 ML IVPB ONE (06:34)
[2024-10-09] MEDS: morphine SULFATE 4 MG/ML VIAL IVPUSH ONE (06:34)
[2024-10-09] MEDS ORDERED: ONDANSETRON 4 MG/2 ML VIAL IVPUSH PRN ×4 (07:00→19:09)
[2024-10-09] MEDS: LACTATED RINGERS SOLUTION 1000 ML INFUS.BAG IV ONE (07:20)
[2024-10-09] MEDS: SODIUM CHLORIDE 1,000 ML IV SCH (08:15)
[2024-10-09] MEDS: ACETAMINOPHEN 1000 MG/100 ML BAG IVPB PRN (10:30)
[2024-10-09] MEDS: PIPERACILLIN/TAZOB 3.375 GM 50 ML IVPB SCH ×3 (11:11→19:25)
[2024-10-09] MEDS ORDERED: BUPIVACAINE HCL/PF 0.25% (2.5MG/ML) 10 ML VIAL ONE (13:02)
[2024-10-09] MEDS ORDERED: PIPERACILLIN/TAZOB 3.375 GM 3.375 GM in DEXTROSE 5%-WATER - 50 ML IVPB SCH ×2 (14:00→18:00)
[2024-10-09] MEDS: GABAPENTIN 400 MG CAPSULE PO SCH ×2 (14:39→22:05)
[2024-10-09] MEDS ORDERED: oxyCODONE HCL 5 MG TABLET PO PRN ×2 (17:42)
[2024-10-09] MEDS ORDERED: LACTATED RINGERS SOLUTION 1,000 ML IV SCH (17:45)
[2024-10-09] MEDS ORDERED: ROCURONIUM BROMIDE 50 MG/5 ML SYRINGE ONE (17:53)
[2024-10-09] MEDS ORDERED: DEXAMETHASONE SOD PHOSPHATE 4 MG/1 ML VIAL ONE (17:53)
[2024-10-09] MEDS ORDERED: MIDAZOLAM HCL 2 MG/2 ML SINGLE DOSE VIAL ONE (17:53)
[2024-10-09] MEDS ORDERED: SUGAMMADEX SODIUM 200 MG/2 ML VIAL ONE (17:53)
[2024-10-09] MEDS ORDERED: LIDOCAINE HCL/PF 2% SDV 5ML VIAL ONE (17:53)
[2024-10-09] MEDS ORDERED: PROPOFOL 20 ML ONE (17:53)
[2024-10-09] MEDS ORDERED: SEVOFLURANE 250 ML BTL ONE (17:54)
[2024-10-09] MEDS: PIPERACILLIN/TAZOBACTAM 3.375 GM VIAL IVPB ONE (18:14)
[2024-10-09] MEDS: BUPIVACAINE HCL/PF 2.5 MG/ML - 30 ML VIAL IJ ONE (18:20)
[2024-10-09] MEDS ORDERED: hydrALAZINE HCL 20 MG/ML VIAL ONE (18:23)
[2024-10-09] MEDS ORDERED: KETOROLAC TROMETHAMINE 30 MG/1 ML VIAL ONE (18:29)
[2024-10-09] MEDS: ACETAMINOPHEN 1000 MG/100 ML BAG IVPB SCH (19:16)
[2024-10-09] MEDS ORDERED: DIVALPROEX NA *ER* EXTEND REL 250 MG TABLET.SA PO SCH (22:00)
[2024-10-09] MEDS ORDERED: EZETIMIBE 10 MG TABLET (FP) PO SCH (22:00)
[2024-10-09] MEDS ORDERED: BUDESONIDE/FORMETEROL FUMARATE 160/4.5 mcg INHALER IH SCH (22:00)
[2024-10-09] MEDS ORDERED: TOPIRAMATE 25 MG TABLET PO SCH (22:00)
[2024-10-09] MEDS: DIVALPROEX NA *ER* EXTEND REL 250 MG TABLET.SA PO SCH (22:06)
[2024-10-09] MEDS: TOPIRAMATE 25 MG TABLET PO SCH (22:06)
[2024-10-09] MEDS: EZETIMIBE 10 MG TABLET (FP) PO SCH (22:07)
[2024-10-09] MEDS: BUDESONIDE/FORMETEROL FUMARATE 160/4.5 mcg INHALER IH SCH (22:55)
[2024-10-10] MEDS ORDERED: ACETAMINOPHEN 325 MG TABLET (FP) ONE (00:57)
[2024-10-10] MEDS: KETOROLAC TROMETHAMINE 15 MG/ML VIAL IVPUSH SCH (06:33)
[2024-10-10] MEDS: amLODIPine BESYLATE 5 MG TABLET (FP) PO SCH (09:50)
[2024-10-10] MEDS: LISINOPRIL 20 MG TABLET PO SCH (09:50)
[2024-10-10] MEDS: LACTATED RINGERS SOLUTION 1,000 ML IV SCH (09:57)
[2024-10-10] MEDS ORDERED: amLODIPine BESYLATE 5 MG TABLET (FP) PO SCH (10:00)
[2024-10-10] MEDS ORDERED: LISINOPRIL 20 MG TABLET PO SCH (10:00)
[2024-10-10] MEDS: oxyCODONE HCL 5 MG TABLET PO PRN (10:01)
[2024-10-10] MEDS ORDERED: INSULIN ASPART SLIDING SCALE (NOVOLOG) 1 VIAL SQ ONE ×2 (13:03→16:07)
[2024-10-10] MEDS: INSULIN (NOVOLOG) ASPART 100 UNITS/ML 10ML VIAL SQ SCH (13:03)
[2024-10-10 16:29] VITALS: BP 113/74; PULSE 80; RESP 18; TEMP 98.1
== END 2024-10-10 16:51 | disposition home or self-care (01) ==
LOC: JER 01:22 → JERBED 06:19 → J8W 09:28
PROVIDERS: ADMIT Internal Medicine; ATTEND Internal Medicine
PROC: 3E013VG Introduction of Insulin into Subcutaneous Tissue, Percutaneous Approach (ICD-10-PCS; 2024-10-09)
PROC: 3E0333Z Introduction of Anti-inflammatory into Peripheral Vein, Percutaneous Approach (ICD-10-PCS; 2024-10-09)
PROC: 3E0337Z Introduction of Electrolytic and Water Balance Substance into Peripheral Vein, Percutaneous Approach (ICD-10-PCS; 2024-10-09)
PROC: 3E033NZ Introduction of Analgesics, Hypnotics, Sedatives into Peripheral Vein, Percutaneous Approach (ICD-10-PCS; 2024-10-09)
PROC: 3E033GC Introduction of Other Therapeutic Substance into Peripheral Vein, Percutaneous Approach (ICD-10-PCS; 2024-10-09)
PROC: 3E03329 Introduction of Other Anti-infective into Peripheral Vein, Percutaneous Approach (ICD-10-PCS; 2024-10-09)
PROC: 0DTJ4ZZ Resection of Appendix, Percutaneous Endoscopic Approach (ICD-10-PCS; 2024-10-09)
PROC: 3E033NZ Introduction of Analgesics, Hypnotics, Sedatives into Peripheral Vein, Percutaneous Approach (ICD-10-PCS; principal; 2024-10-09 15:30)
DX: K35.80 Unspecified acute appendicitis (principal); E11.9 Type 2 diabetes mellitus without complications; E78.5 Hyperlipidemia, unspecified; I11.9 Hypertensive heart disease without heart failure; G62.9 Polyneuropathy, unspecified; R42 Dizziness and giddiness; F32.A Depression, unspecified; F19.21 Other psychoactive substance dependence, in remission; F10.21 Alcohol dependence, in remission; G89.4 Chronic pain syndrome; Z87.19 Personal history of other diseases of the digestive system; Z90.49 Acquired absence of other specified parts of digestive tract; Z91.041 Radiographic dye allergy status; I25.2 Old myocardial infarction; Z88.8 Allergy status to other drugs, medicaments and biological substances
CPT/HCPCS: 36415; 74176-TC; 80053; 81003; 82962; 83690; 84703; 85025; 85610; 85730; 87086; 88304-TC; 93005; 93010; 94760; 96361; 96365; 96372; 96375; 96376; 99285-25; G0378; J0131

== ENCOUNTER 2025-03-21 09:23 | Inpatient (IN) | payer OTHER ==
[2025-03-21 11:05] LABS: ABSOLUTE IMMATURE GRANULOCYTES 0.03 x10^3/uL (0.0-0.031); BASOPHILS # 0.02 x10^3/uL (0.01-0.08); EOSINOPHIL % 2.7 % (0.7-5.8); EOSINOPHILS # 0.26 x10^3/uL (0.04-0.36); HEMATOCRIT 37.9 % (34.1-44.9); HEMOGLOBIN 12.3 g/dL (11.2-15.7); MCHC 32.5 g/dl (32.2-35.5); MEAN CELL VOLUME 83.3 fl (79.4-94.8); MEAN PLT VOLUME 10.2 fl (9.4-12.3); MONOCYTE # 0.49 x10^3/uL (0.24-0.86); MONOCYTE % 5.1 % (4.7-12.5); PLATELET COUNT 288 x10^3/uL (182-369); RDW 12.8 % (12.3-16.6)
[2025-03-21] MEDS ORDERED: ONDANSETRON 4 MG/2 ML VIAL ONE (11:06)
[2025-03-21] MEDS ORDERED: ACETAMINOPHEN INJECTION 100 ML ONE (11:06)
[2025-03-21] MEDS ORDERED: FAMOTIDINE 20 MG/50 ML IVPB 20 MG/50 ML MG IVPB ONE (11:07)
[2025-03-21 11:31] LABS: CHLORIDE 100 mmol/L (98-107); POTASSIUM 4.2 mmol/L (3.5-5.1); SODIUM 135 mmol/L (136-145)
[2025-03-21] MEDS: ACETAMINOPHEN 1000 MG/100 ML BAG IVPB ONE (11:35)
[2025-03-21] MEDS: SODIUM CHLORIDE 0.9% 500 ML INFUS.BAG IV ONE (11:35)
[2025-03-21 11:37] LABS: BLOOD UREA NITROGEN 21.2 mg/dL (7-18); CALCIUM 9.5 mg/dL (8.5-10.1)
[2025-03-21] MEDS: ONDANSETRON 4 MG/2 ML VIAL IVPB ONE (11:37)
[2025-03-21] MEDS: FAMOTIDINE 20 MG/50 ML IVPB 20 MG/50 ML MG IVPB ONE (11:37)
[2025-03-21 11:38] LABS: ANION GAP 5 mmol/L (4-13); CO2 30 mmol/L (21-32); MAGNESIUM 1.8 mg/dL (1.8-2.4)
[2025-03-21 11:39] LABS: CREATININE 1.1 mg/dL (0.55-1.3); SGOT/AST 12 U/L (15-37)
[2025-03-21 11:41] LABS: BILIRUBIN,TOTAL 0.4 mg/dL (0.2-1); TOT PROT 6.7 g/dl (6.4-8.2)
[2025-03-21 11:42] LABS: ALK PHOS 114 U/L (45-117)
[2025-03-21 11:45] LABS: GLUCOSE,RANDOM 545 mg/dL (74-106)
[2025-03-21 11:47] LABS: SGPT/ALT 19 U/L (13-61)
[2025-03-21 12:42] LABS: VENOUS BASE EXCESS -6.4 mmol/L (-2-2); VENOUS O2 SATURATION 84.6 % (70-80); VENOUS PCO2 43.3 mmHg (38-52); VENOUS PH 7.282 (7.310-7.410)
[2025-03-21] MEDS: SODIUM CHLORIDE 1,000 ML IV STA (12:59)
[2025-03-21 14:52] LABS: EPI CELLS 4 /uL (0-25.1); HYALINE CASTS 0 /uL (0-3.1); URINE APPEARANCE CLEAR; URINE BACTERIA 59 /uL (0-1359); URINE BILIRUBIN NEGATIVE (NEGATIVE); URINE COLOR YELLOW; URINE GLUCOSE (UA) 3+ (NEGATIVE); URINE KETONE NEGATIVE (NEGATIVE); URINE LEUK ESTERASE NEGATIVE (NEGATIVE); URINE NITRITE NEGATIVE (NEGATIVE); URINE PROTEIN 2+ (NEGATIVE); URINE RBC 57 /uL (0-23.9); URINE UROBILINOGEN 0.2 mg/dL (0.2-1.0); URINE WBC 4 /uL (0-25.8)
[2025-03-21] MEDS ORDERED: MECLIZINE HCL 25 MG TABLET (FP) PO PRN (15:35)
[2025-03-21 16:15] LABS: VENOUS BASE EXCESS -0.8 mmol/L (-2-2); VENOUS O2 SATURATION 93.2 % (70-80); VENOUS PH 7.38 (7.310-7.410)
[2025-03-21] MEDS: INSULIN ASPART SLIDING SCALE (NOVOLOG) 1 VIAL SQ SCH ×2 (17:44→21:13)
[2025-03-21] MEDS: SODIUM CHLORIDE 1,000 ML IV SCH (17:46)
[2025-03-21] MEDS: hydrALAZINE HCL 10 MG TABLET PO STA (18:13)
[2025-03-21] MEDS: LISINOPRIL 20 MG TABLET PO ONE (21:06)
[2025-03-21] MEDS: GABAPENTIN 400 MG CAPSULE PO SCH (21:07)
[2025-03-21] MEDS: ROSUVASTATIN CA 20 MG TABLET PO SCH (21:07)
[2025-03-21] MEDS: TOPIRAMATE 25 MG TABLET PO SCH (21:07)
[2025-03-21] MEDS: DIVALPROEX NA *ER* EXTEND REL 250 MG TABLET.SA PO SCH (21:27)
[2025-03-21] MEDS: hydrALAZINE HCL 10 MG TABLET PO SCH (21:27)
[2025-03-21] MEDS: BUDESONIDE/FORMETEROL FUMARATE 160/4.5 mcg INHALER IH SCH (21:28)
[2025-03-21] MEDS: INSULIN GLARGINE (LANTUS) 100 UNITS/ML UNITS SQ ONE (21:28)
[2025-03-21] MEDS ORDERED: hydrALAZINE HCL 10 MG TABLET PO SCH (22:00)
[2025-03-22] MEDS ORDERED: MECLIZINE HCL 25 MG TABLET (FP) PO PRN (00:12)
[2025-03-22] MEDS: SODIUM CHLORIDE IV SCH (00:42)
[2025-03-22] MEDS: LABETALOL HCL IV SCH (00:42)
[2025-03-22] MEDS: MUPIROCIN 2% TOPICAL OINTMENT FOR DECOLONIZATION NS SCH (00:45)
[2025-03-22] MEDS: SODIUM CHLORIDE 1,000 ML IV SCH (00:46)
[2025-03-22] MEDS: INSULIN ASPART SLIDING SCALE (NOVOLOG) 1 VIAL SQ SCH ×2 (00:55→21:23)
[2025-03-22] MEDS: INSULIN GLARGINE (LANTUS) 100 UNITS/ML UNITS SQ SCH (06:02)
[2025-03-22] MEDS: GABAPENTIN 400 MG CAPSULE PO SCH ×2 (06:02→21:27)
[2025-03-22] MEDS ORDERED: INSULIN ASPART SLIDING SCALE (NOVOLOG) 1 VIAL SQ SCH (07:00)
[2025-03-22] MEDS ORDERED: INSULIN GLARGINE (LANTUS) 100 UNITS/ML UNITS SQ SCH (07:00)
[2025-03-22] MEDS ORDERED: metFORMIN HCL 500 MG TABLET (FP) PO SCH ×2 (07:00)
[2025-03-22 07:07] LABS: HEMATOCRIT 30.1 % (34.1-44.9); HEMOGLOBIN 9.8 g/dL (11.2-15.7); MCHC 32.6 g/dl (32.2-35.5); MEAN CELL VOLUME 84.1 fl (79.4-94.8); MEAN PLT VOLUME 10.3 fl (9.4-12.3); PLATELET COUNT 239 x10^3/uL (182-369); RDW 12.8 % (12.3-16.6)
[2025-03-22 07:37] LABS: POTASSIUM 3.7 mmol/L (3.5-5.1)
[2025-03-22 07:43] LABS: ALBUMIN 2.5 g/dl (3.4-5.0); CALCIUM 8.7 mg/dL (8.5-10.1)
[2025-03-22 07:44] LABS: BLOOD UREA NITROGEN 15.8 mg/dL (7-18); MAGNESIUM 1.5 mg/dL (1.8-2.4)
[2025-03-22 07:47] LABS: CREATININE 0.7 mg/dL (0.55-1.3); PHOSPHOROUS 4.1 mg/dL (2.5-4.9)
[2025-03-22 07:48] LABS: BILIRUBIN,TOTAL 0.4 mg/dL (0.2-1); TOT PROT 5.4 g/dl (6.4-8.2)
[2025-03-22] MEDS: TOPIRAMATE 25 MG TABLET PO SCH ×2 (09:09→21:27)
[2025-03-22] MEDS: hydrALAZINE HCL 10 MG TABLET PO SCH (09:09)
[2025-03-22] MEDS: LISINOPRIL 20 MG TABLET PO SCH (09:10)
[2025-03-22] MEDS: EZETIMIBE 10 MG TABLET (FP) PO SCH (09:10)
[2025-03-22] MEDS: LABETALOL HCL 200 MG TABLET (FP) PO SCH ×2 (09:10→21:27)
[2025-03-22] MEDS ORDERED: ENOXAPARIN NA (PORCINE) 40 MG/0.4 ML DISP.SYRIN SQ SCH (10:00)
[2025-03-22] MEDS ORDERED: LISINOPRIL 20 MG TABLET PO SCH (10:00)
[2025-03-22] MEDS ORDERED: EZETIMIBE 10 MG TABLET (FP) PO SCH (10:00)
[2025-03-22] MEDS ORDERED: amLODIPine BESYLATE 5 MG TABLET (FP) PO SCH (10:00)
[2025-03-22] MEDS: ACETAMINOPHEN 1000 MG/100 ML BAG IVPB ONE (10:51)
[2025-03-22] MEDS: MAGNESIUM 2GM/50ML STERILE WATER IVPB IVPB ONE (10:51)
[2025-03-22] MEDS: THIAMINE HCL 200 MG/2 ML VIAL IVPB SCH (10:56)
[2025-03-22] MEDS: amLODIPine BESYLATE 5 MG TABLET (FP) PO SCH ×2 (14:32→19:03)
[2025-03-22] MEDS: MAGNESIUM SULF 50% (8.12 MEQ/2 ML-1 GM VIAL) IVPB ONE (19:02)
[2025-03-22] MEDS: BUDESONIDE/FORMETEROL FUMARATE 160/4.5 mcg INHALER IH SCH (19:04)
[2025-03-22] MEDS: ROSUVASTATIN CA 20 MG TABLET PO SCH (21:28)
[2025-03-22] MEDS ORDERED: ROSUVASTATIN CA 20 MG TABLET PO SCH (22:00)
[2025-03-22] MEDS ORDERED: CHLORHEXIDINE GLUCONATE 4% CLEANSER FOR DECOLONIZATION TP SCH (22:00)
[2025-03-23] MEDS ORDERED: INSULIN ASPART SLIDING SCALE (NOVOLOG) 1 VIAL SQ SCH (00:30)
[2025-03-23] MEDS: INSULIN GLARGINE (LANTUS) 100 UNITS/ML UNITS SQ SCH (06:13)
[2025-03-23 08:10] LABS: POTASSIUM 3.8 mmol/L (3.5-5.1)
[2025-03-23 08:13] LABS: ALBUMIN 2.8 g/dl (3.4-5.0); CALCIUM 9.5 mg/dL (8.5-10.1); MAGNESIUM 2.2 mg/dL (1.8-2.4)
[2025-03-23 08:14] LABS: BLOOD UREA NITROGEN 12.1 mg/dL (7-18)
[2025-03-23 08:16] LABS: CREATININE 0.9 mg/dL (0.55-1.3)
[2025-03-23 08:17] LABS: PHOSPHOROUS 3.9 mg/dL (2.5-4.9)
[2025-03-23 08:18] LABS: TOT PROT 6.2 g/dl (6.4-8.2)
[2025-03-23 08:19] LABS: BILIRUBIN,TOTAL 0.3 mg/dL (0.2-1)
[2025-03-23] MEDS: MUPIROCIN 2% TOPICAL OINTMENT FOR DECOLONIZATION NS SCH (08:23)
[2025-03-23] MEDS: CHLORHEXIDINE GLUCONATE 4% CLEANSER FOR DECOLONIZATION TP SCH (08:23)
[2025-03-23] MEDS: DIVALPROEX NA *ER* EXTEND REL 250 MG TABLET.SA PO SCH (08:23)
[2025-03-23 08:27] LABS: HEMATOCRIT 35.8 % (34.1-44.9); HEMOGLOBIN 11.3 g/dL (11.2-15.7); MCHC 31.6 g/dl (32.2-35.5); MEAN CELL VOLUME 85.4 fl (79.4-94.8); MEAN PLT VOLUME 10.2 fl (9.4-12.3); PLATELET COUNT 281 x10^3/uL (182-369); RDW 13.4 % (12.3-16.6)
[2025-03-23] MEDS: LISINOPRIL 20 MG TABLET PO SCH (10:29)
[2025-03-23] MEDS: THIAMINE HCL 200 MG/2 ML VIAL IVPB SCH (10:29)
[2025-03-23] MEDS: amLODIPine BESYLATE 5 MG TABLET (FP) PO SCH (10:30)
[2025-03-23] MEDS: ASPIRIN 81 MG CHEWABLE TABLETS PO SCH (14:57)
[2025-03-23] MEDS: PRAMIPEXOLE DIHYDROCHLORIDE 0.25 MG TABLET PO SCH (23:40)
[2025-03-24] MEDS: DIVALPROEX NA *ER* EXTEND REL 250 MG TABLET.SA PO SCH (07:34)
[2025-03-24] MEDS: CLOPIDOGREL BISULFATE 75 MG TABLET (FP) PO SCH (10:03)
[2025-03-25 10:01] VITALS: RESP 18
[2025-03-25 17:03] VITALS: BMI 28.5
[2025-03-25 18:31] VITALS: BP 133/88; PULSE 76; TEMP 98.4
== END 2025-03-25 19:22 | disposition home or self-care (01) | DRG 45 ==
LOC: JER 09:23 → JERBED 14:48 → J8W 16:32 → JICU 03-22 00:08 → J4W 03-22 18:17
PROVIDERS: ADMIT Family Medicine; ATTEND Family Medicine
PROC: 4A133B1 Monitoring of Arterial Pressure, Peripheral, Percutaneous Approach (ICD-10-PCS; principal; 2025-03-22)
PROC: 4A133J1 Monitoring of Arterial Pulse, Peripheral, Percutaneous Approach (ICD-10-PCS; 2025-03-22)
DX: I63.89 Other cerebral infarction (principal); E11.42 Type 2 diabetes mellitus with diabetic polyneuropathy; R29.717 NIHSS score 17; E11.65 Type 2 diabetes mellitus with hyperglycemia; R13.10 Dysphagia, unspecified; I10 Essential (primary) hypertension; R47.01 Aphasia; I16.1 Hypertensive emergency; I25.10 Atherosclerotic heart disease of native coronary artery without angina pectoris; I25.2 Old myocardial infarction; R11.2 Nausea with vomiting, unspecified; R53.1 Weakness; R80.9 Proteinuria, unspecified; R10.13 Epigastric pain; F32.A Depression, unspecified; G89.4 Chronic pain syndrome; G25.81 Restless legs syndrome; G43.909 Migraine, unspecified, not intractable, without status migrainosus; Z59.02 Unsheltered homelessness
CPT/HCPCS: 36415; 70450-TC; 70496-TC; 70498-TC; 70551-TC; 74176-TC; 76775-TC; 80053; 80061; 81003; 82803; 82962; 83036; 83605; 83690; 83735; 84100; 84443; 84484; 85025; 85027; 85651; 86140; 87086; 93005; 93010; 97116-GP; 97161-GP; 99285-25; J0131

== ENCOUNTER 2025-03-28 00:35 | Observation (INO) | payer OTHER ==
[2025-03-28 00:41] VITALS: RESP 18
[2025-03-28] MEDS ORDERED: LISINOPRIL 20 MG TABLET ONE (01:41)
[2025-03-28] MEDS ORDERED: amLODIPine BESYLATE 5 MG TABLET (FP) ONE (01:41)
[2025-03-28] MEDS ORDERED: LABETALOL HCL 200 MG TABLET (FP) ONE (01:42)
[2025-03-28] MEDS ORDERED: METOCLOPRAMIDE HCL INJECTION 10 MG/2 ML VIAL ONE (01:42)
[2025-03-28] MEDS ORDERED: CLOPIDOGREL BISULFATE 75 MG TABLET (FP) ONE (01:42)
[2025-03-28] MEDS ORDERED: ROSUVASTATIN CA 20 MG TABLET ONE (01:42)
[2025-03-28] MEDS ORDERED: ASPIRIN 81 MG CHEWABLE TABLETS ONE (01:42)
[2025-03-28] MEDS ORDERED: DIVALPROEX SODIUM 250 MG TABLET E.C. ONE (01:43)
[2025-03-28] MEDS ORDERED: ACETAMINOPHEN INJECTION 100 ML ONE (01:43)
[2025-03-28] MEDS ORDERED: TOPIRAMATE 25 MG TABLET ONE (01:45)
[2025-03-28] MEDS: ROSUVASTATIN CA 40 MG TABLET PO ONE (02:01)
[2025-03-28] MEDS: DIVALPROEX NA *ER* EXTEND REL 250 MG TABLET.SA PO ONE (02:01)
[2025-03-28] MEDS: LABETALOL HCL 200 MG TABLET (FP) PO ONE (02:01)
[2025-03-28] MEDS: amLODIPine BESYLATE 5 MG TABLET (FP) PO ONE (02:01)
[2025-03-28] MEDS: ACETAMINOPHEN 1000 MG/100 ML BAG IVPB ONE (02:01)
[2025-03-28] MEDS: ASPIRIN 81 MG CHEWABLE TABLETS PO ONE (02:01)
[2025-03-28] MEDS: SODIUM CHLORIDE 0.9% 500 ML INFUS.BAG IV ONE (02:01)
[2025-03-28] MEDS: LISINOPRIL 20 MG TABLET PO ONE (02:02)
[2025-03-28] MEDS: CLOPIDOGREL BISULFATE 75 MG TABLET (FP) PO ONE (02:02)
[2025-03-28] MEDS: TOPIRAMATE 25 MG TABLET PO ONE (02:02)
[2025-03-28] MEDS: METOCLOPRAMIDE HCL INJECTION 10 MG/2 ML VIAL IVPUSH ONE (02:24)
[2025-03-28 04:41] LABS: ABSOLUTE IMMATURE GRANULOCYTES 0.03 x10^3/uL (0.0-0.031); BASOPHILS # 0.02 x10^3/uL (0.01-0.08); EOSINOPHIL % 6.2 % (0.7-5.8); EOSINOPHILS # 0.44 x10^3/uL (0.04-0.36); HEMATOCRIT 33.8 % (34.1-44.9); HEMOGLOBIN 11.1 g/dL (11.2-15.7); MCHC 32.8 g/dl (32.2-35.5); MEAN CELL VOLUME 83.5 fl (79.4-94.8); MEAN PLT VOLUME 10.3 fl (9.4-12.3); MONOCYTE # 0.49 x10^3/uL (0.24-0.86); MONOCYTE % 6.9 % (4.7-12.5); PLATELET COUNT 248 x10^3/uL (182-369); RDW 13.2 % (12.3-16.6)
[2025-03-28] MEDS ORDERED: ACETAMINOPHEN 500 MG TABLET (FP) PO PRN (05:32)
[2025-03-28 05:34] LABS: CALCIUM 8.9 mg/dL (8.5-10.1)
[2025-03-28 05:35] LABS: BLOOD UREA NITROGEN 27.7 mg/dL (7-18)
[2025-03-28] MEDS: INSULIN ASPART SLIDING SCALE (NOVOLOG) 1 VIAL SQ SCH (08:04)
[2025-03-28] MEDS: ASPIRIN 81 MG CHEWABLE TABLETS PO SCH (09:27)
[2025-03-28] MEDS: CLOPIDOGREL BISULFATE 75 MG TABLET (FP) PO SCH (09:27)
[2025-03-28] MEDS: amLODIPine BESYLATE 5 MG TABLET (FP) PO SCH (09:28)
[2025-03-28] MEDS: BUDESONIDE/FORMETEROL FUMARATE 160/4.5 mcg INHALER IH SCH (09:28)
[2025-03-28] MEDS: TOPIRAMATE 25 MG TABLET PO SCH (09:28)
[2025-03-28] MEDS: DIVALPROEX NA *ER* EXTEND REL 250 MG TABLET.SA PO SCH (09:28)
[2025-03-28 11:33] VITALS: BMI 30.2
[2025-03-28 13:27] VITALS: BP 147/74; PULSE 76; TEMP 98.1
[2025-03-28] MEDS: LABETALOL HCL 200 MG TABLET (FP) PO SCH (14:03)
[2025-03-28] MEDS: PRAMIPEXOLE DIHYDROCHLORIDE 0.25 MG TABLET PO SCH (14:03)
[2025-03-28] MEDS ORDERED: GABAPENTIN 400 MG CAPSULE PO SCH (22:00)
[2025-03-28] MEDS ORDERED: MECLIZINE HCL 12.5 MG TABLET PO SCH (22:00)
[2025-03-28] MEDS ORDERED: ROSUVASTATIN CA 20 MG TABLET PO SCH (22:00)
[2025-03-28] MEDS ORDERED: INSULIN GLARGINE (LANTUS) 100 UNITS/ML UNITS SQ SCH (22:00)
[2025-03-28] MEDS ORDERED: ROSUVASTATIN CA 40 MG TABLET PO SCH (22:00)
[2025-03-29] MEDS ORDERED: LISINOPRIL 20 MG TABLET PO SCH (10:00)
== END 2025-03-28 15:24 | disposition home or self-care (01) ==
LOC: JER 00:35 → JERBED 03:21 → J7W 06:49
PROVIDERS: ADMIT Family Medicine; ATTEND Family Medicine
PROC: 3E033NZ Introduction of Analgesics, Hypnotics, Sedatives into Peripheral Vein, Percutaneous Approach (ICD-10-PCS; principal; 2025-03-28)
PROC: 3E013VG Introduction of Insulin into Subcutaneous Tissue, Percutaneous Approach (ICD-10-PCS; 2025-03-28)
PROC: 3E033GC Introduction of Other Therapeutic Substance into Peripheral Vein, Percutaneous Approach (ICD-10-PCS; 2025-03-28)
PROC: 3E0337Z Introduction of Electrolytic and Water Balance Substance into Peripheral Vein, Percutaneous Approach (ICD-10-PCS; 2025-03-28)
DX: R51.9 Headache, unspecified (principal); I10 Essential (primary) hypertension; E11.9 Type 2 diabetes mellitus without complications; Z59.02 Unsheltered homelessness; Z91.148 Patient's other noncompliance with medication regimen for other reason; E78.5 Hyperlipidemia, unspecified; Z29.89 Encounter for other specified prophylactic measures; Z88.8 Allergy status to other drugs, medicaments and biological substances
CPT/HCPCS: 36415; 80048; 82962; 85025; 93005; 93010; 96372; 96374; 96375; 99285-25; G0378; J0131

== ENCOUNTER 2025-04-02 00:44 | Emergency (ER) | payer OTHER ==
[2025-04-02 00:55] VITALS: BP 182/107; PULSE 80; RESP 20; TEMP 97.7; BMI 29.9
[2025-04-02] MEDS: IBUPROFEN 400 MG TABLET (FP) PO ONE (04:09)
[2025-04-02] MEDS ORDERED: IBUPROFEN 400 MG TABLET (FP) PO ONE (04:12)
== END 2025-04-02 04:45 | disposition home or self-care (01) ==
LOC: JER 00:44
DX: M71.22 Synovial cyst of popliteal space [Baker], left knee (principal); M79.89 Other specified soft tissue disorders; M79.662 Pain in left lower leg; R60.0 Localized edema
CPT/HCPCS: 93970-TC; 99284-25

== ENCOUNTER 2025-06-03 00:43 | Emergency (ER) | payer OTHER ==
[2025-06-03] MEDS ORDERED: KETOROLAC TROMETHAMINE 30 MG/1 ML VIAL IVPUSH ONE (01:09)
[2025-06-03] MEDS ORDERED: KETOROLAC TROMETHAMINE 30 MG/1 ML VIAL ONE (01:39)
[2025-06-03] MEDS ORDERED: ACETAMINOPHEN 325 MG TABLET (FP) ONE (01:39)
[2025-06-03] MEDS: KETOROLAC TROMETHAMINE 30 MG/1 ML VIAL IM ONE (01:40)
[2025-06-03] MEDS: ACETAMINOPHEN 500 MG TABLET (FP) PO ONE (01:40)
[2025-06-03 02:08] VITALS: BP 102/50; PULSE 79; RESP 18; TEMP 98; BMI 39.8
== END 2025-06-03 03:52 ==
LOC: JER 00:43
PROC: 3E0233Z Introduction of Anti-inflammatory into Muscle, Percutaneous Approach (ICD-10-PCS; principal; 2025-06-03)
DX: R51.9 Headache, unspecified (principal); H91.92 Unspecified hearing loss, left ear; W18.30XA Fall on same level, unspecified, initial encounter
CPT/HCPCS: 99284-25